=== PATIENT | female | born 1970 | race American Indian/Alaskan Native ===

== ENCOUNTER 2016-12-16 18:41 | Emergency (ER) | payer MEDICAID ==
[2016-12-16 20:29] VITALS: BP 171/93
[2016-12-16] MEDS ORDERED: Albuterol 0.083% 2.5 MG/3 ML Neb Soln NEB ONE (20:45)
--- NOTE | 2016-12-16 20:46 | EDM.PDOC ---
ED HISTORY OF PRESENT ILLNESS - General Chief Complaint: Respiratory Problem Stated Complaint: SICK 5 DAYS-COUGH, HEAD & BODY ACHES Time Seen by Provider: 12/16/16 20:45 Source: Reports: Patient, Family History Limitations: Reports: No limitations - History of Present Illness INITIAL COMMENTS - FREE TEXT/NARRATIVE: PT HAS BEEN SICK FOR THE LAST 2-3 DAys and hurts all over and is coughing markedly. Timing/Duration: Reports: Hour(s):, Getting worse Location, General: Reports: chest Associated Symptoms: Reports: cough, other ( body aches) - Related Data Allergies/ADRs: Allergies Allergy/AdvReac Type Severity Reaction Status Date / Time Penicillins AdvReac Diarrhea Verified 12/16/16 20:30 Home Meds: Home Meds Esomeprazole [NexIUM] 40 mg PO DAILY 05/23/15 [History] diphenhydrAMINE HCl [Banophen] 25 mg PO ASDIRECTED 08/02/16 [History] Citalopram [Celexa] 20 mg PO DAILY 12/16/16 [History] Past Medical History HEENT 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: Impaired vision Cardiovascular 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: Arrhythmia Other Cardiovascular History: first degree AV block Respiratory 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: Bronchitis, recurrent Gastrointestinal 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: Gastritis, GERD, PUD 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, Other OB/BYN History: labial cyst Musculoskeletal 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: Back pain, chronic, Fracture Other Musculoskeletal History: mid level DJD Psychiatric 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: Anxiety, Panic attack Hematologic 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: Anemia, Blood transfusion(s), Iron deficiency - Infectious Disease History Infectious Disease 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: Chicken pox - Past Surgical History GI Surgical 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: Cholecystectomy, Colonoscopy, EGD Female Surgical 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: Tubal ligation Other Musculoskeletal Surgeries/Procedures:: herniated disc Social & Family History - Tobacco Use Smoking Status *Q: Current Every Day Smoker Years of Tobacco use: 15 Packs/Tins Daily: 0.5 Used Tobacco, but Quit: No Second Hand Smoke Exposure: Yes - Caffeine Use Caffeine Use: Reports: Coffee, Soda - Alcohol Use Days Per Week of Alcohol Use: 0 - Recreational Drug Use Recreational Drug Use: No Drug Use in Last 12 Months: No - Living Situation & Occupation Living situation: Reports: single Occupation: unemployed (lives in [facility] with family.) ED ROS GENERAL - Review of Systems Review Of Systems: See Below Constitutional: Reports: malaise, weakness HEENT: Reports: No symptoms Respiratory: Reports: shortness of breath, wheezing, cough Cardiovascular: Reports: No symptoms Endocrine: Reports: no symptoms GI/Abdominal: Reports: No symptoms : Reports: no symptoms ED EXAM, GENERAL - Physical Exam Exam: See Below Free Text/Narrative:: pt is here coughing a great deal. She hurts in her back when she is coughing so hard She is not raising sputum. Exam Limited By: No limitations General Appearance: alert, anxious Ears: normal TMs Nose: nasal drainage Throat/Mouth: Normal inspection Head: atraumatic Neck: normal inspection Respiratory/Chest: decreased breath sounds, wheezing Cardiovascular: regular rate, rhythm GI/Abdominal: soft, non tender Rectal (Female) Exam: Deferred Back Exam: normal inspection Extremities: normal inspection Neurological: alert, oriented, normal cognition Psychiatric: anxious Course - Vital Signs Last Recorded V/S: Last Vital Signs Temp 37.0 C 12/16/16 20:25 Pulse 87 12/16/16 20:25 Resp 12 12/16/16 20:25 BP 171/93 H 12/16/16 20:25 Pulse Ox 98 12/16/16 20:25 - Orders/Labs/Meds Orders: Active Orders 24 hr Category Date Time Status RT Aerosol Therapy [RC] ASDIRECTED Care 12/16/16 20:45 Active Chest 2V [CR] Stat Exams 12/16/16 20:44 Taken Labs: Laboratory Tests 12/16/16 Range/Units 20:54 WBC 7.7 (4.5-11.0) K/uL RBC 5.13 (3.30-5.50) M/uL Hgb 14.5 (12.0-15.0) g/dL Hct 43.2 (36.0-48.0) % MCV 84 (80-98) fL MCH 28 (27-31) pg MCHC 34 (32-36) % Plt Count 252 (150-400) K/uL Neut % (Auto) 62 (36-66) % Lymph % (Auto) 16 L (24-44) % Beckham % (Auto) 9 H (2-6) % Eos % (Auto) 12 H (2-4) % Baso % (Auto) 1 (0-1) % Meds: Medications Discontinued Medications Generic Name Dose Route Start Last Admin Trade Name Freq PRN Reason Stop Dose Admin Albuterol 2.5 mg 12/16/16 20:45 12/16/16 21:37 Proventil Neb Soln NEB 12/16/16 20:46 2.5 mg ONETIME ONE Administration Benzonatate 200 mg 12/16/16 21:55 12/16/16 22:14 Tessalon Perles PO 12/16/16 21:56 200 mg ONETIME ONE Administration - Re-Assessments/Exams Free Text/Narrative Re-Assessment/Exam: 12/16/16 22:36 wbc is not elevated. Her Influ a and b are neg. She was given a neb and she was better with the coughing. Her chest xray did not reveal an infiltrate. Departure - Departure Time of Disposition: 22:37 Disposition: Home, Self-Care 01 Condition: fair Clinical Impression: Bronchitis, Bronchospasm Referrals: PCP,None [Primary Care Provider] - Forms: ED Department Discharge Care Plan Goals: cool mist humidifier, albuterol inhaler 2 puffs tid, prachi elamsin ac 1 - 2 tsp q6h prn for cough. - My Orders Last 24 Hours: My Active Orders 12/16/16 20:44 Chest 2V [CR] Stat 12/16/16 20:45 RT Aerosol Therapy [RC] ASDIRECTED - Assessment/Plan Last 24 Hours: My Active Orders 12/16/16 20:44 Chest 2V [CR] Stat 12/16/16 20:45 RT Aerosol Therapy [RC] ASDIRECTED
[2016-12-16] MEDS ORDERED: Benzonatate 100 MG Cap PO ONE (21:55)
--- NOTE | 2016-12-17 08:34 | CR ---
Chest 2V HISTORY: cough COMPARISON: 08/02/2016. FINDINGS: Cardiac size and pulmonary vessels normal. Lungs are clear.
== END 2016-12-16 22:57 | disposition home or self-care (01) ==
LOC: JP.ED 18:41
DX: J40 Bronchitis, not specified as acute or chronic (principal); J98.01 Acute bronchospasm; K21.9 Gastro-esophageal reflux disease without esophagitis; F41.0 Panic disorder [episodic paroxysmal anxiety]; F17.210 Nicotine dependence, cigarettes, uncomplicated; Z90.49 Acquired absence of other specified parts of digestive tract; Z98.51 Tubal ligation status; Z98.890 Other specified postprocedural states; Z79.899 Other long term (current) drug therapy; Z88.0 Allergy status to penicillin
CPT/HCPCS: 36415; 71020; 85025; 87804; 99284; A9270

== ENCOUNTER 2017-01-10 21:59 | Emergency (ER) | payer MEDICAID ==
[2017-01-10 22:23] VITALS: BP 144/95
[2017-01-10] MEDS ORDERED: ALPRAZolam 0.25 MG Tab PO ONE (22:48)
--- NOTE | 2017-01-10 22:53 | EDM.PDOC ---
ED HPI Behavioral Health - General Chief Complaint: Behavioral/Psych Stated Complaint: sob Time Seen by Provider: 01/10/17 22:49 Source: Reports: Patient Exam Limitations: Reports: No limitations - History of Present Illness INITIAL COMMENTS - FREE TEXT/NARRATIVE: 46 yo female presents with a complaint of anxiety. Is prescribed Celexa, but has not been taking it for the past few weeks. Arrives tonight via EMS without any tx en route. Is feeling slightly better on arrival. Onset of Symptoms: Reports: today Symptom Onset Date: 01/10/17 Duration of Symptoms: Reports: Hour(s):, Other (improving currently.) Severity: moderate Context, Behavioral Health: Reports: living situation, family dynamics Associated Symptoms: Reports: anxiety. 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: Reports: Other (see below) (none) - Related Data Allergies Allergy/AdvReac Type Severity Reaction Status Date / Time Penicillins AdvReac Diarrhea Verified 01/10/17 22:30 Home Medications: Home Meds Esomeprazole [NexIUM] 40 mg PO DAILY 05/23/15 [History] Citalopram [Celexa] 20 mg PO DAILY 12/16/16 [History] ALPRAZolam [Alprazolam] 0.25 mg PO TID PRN #8 tablet 01/10/17 [Rx] Doxycycline Hyclate [Doxycycline Hyclate] 100 mg PO DAILY 01/10/17 [History] left hip Pain Score (Numeric/FACES): 9 Past Medical History HEENT 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: Impaired vision Cardiovascular 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: Arrhythmia Other Cardiovascular History: first degree AV block Respiratory 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: Bronchitis, recurrent Gastrointestinal 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: Gastritis, GERD, PUD 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 ablation, Other OB/BYN History: labial cyst Musculoskeletal 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: Back pain, chronic, Fracture Other Musculoskeletal History: mid level DJD Psychiatric 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: Anxiety, Panic attack Hematologic 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: Anemia, Blood transfusion(s), Iron deficiency - Infectious Disease History Infectious Disease 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: Chicken pox - Past Surgical History GI Surgical 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: Cholecystectomy, Colonoscopy, EGD Female Surgical 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: Tubal ligation Other Musculoskeletal Surgeries/Procedures:: herniated disc Social & Family History - Tobacco Use Smoking Status *Q: Current Every Day Smoker Years of Tobacco use: 10 Packs/Tins Daily: 0.5 Used Tobacco, but Quit: No Second Hand Smoke Exposure: Yes - Caffeine Use Caffeine Use: Reports: Coffee, Soda - Alcohol Use Days Per Week of Alcohol Use: 0 - Recreational Drug Use Recreational Drug Use: No Drug Use in Last 12 Months: No - Living Situation & Occupation Living situation: Reports: single Occupation: unemployed (lives in [facility] with family.) ED ROS GENERAL - Review of Systems Review Of Systems: See Below Constitutional: Reports: no symptoms HEENT: Reports: No symptoms Respiratory: Reports: Cough Cardiovascular: Reports: No symptoms Endocrine: Reports: no symptoms GI/Abdominal: Reports: No symptoms : Reports: no symptoms Musculoskeletal: Reports: no symptoms Skin: Reports: no symptoms Neurological: Reports: No Symptoms Psychiatric: Reports: Anxiety ED EXAM, BEHAVIORAL HEALTH - Physical Exam Exam: See Below Exam Limited By: No limitations General Appearance: alert, WD/WN, no apparent distress Eye Exam: bilateral eye: normal inspection Ears: normal external exam, normal canal, hearing grossly normal Nose: normal inspection, normal mucosa, no blood Throat/Mouth: Normal inspection, Normal lips, Normal oropharynx, Normal voice, No airway compromise Head: atraumatic, normocephalic Neck: normal inspection, supple, non-tender Respiratory/Chest: no respiratory distress, lungs clear, normal breath sounds, no accessory muscle use Cardiovascular: regular rate, rhythm, no edema GI/Abdominal: normal bowel sounds, soft, non tender, no distention Back Exam: normal inspection, full range of motion Extremities: normal inspection, normal range of motion, non-tender, no pedal edema Neurological: alert, normal mood/affect, CN II-XII intact, normal cognition, no motor/sensory deficits, oriented x 3 Psychiatric: alert, normal affect, normal cognition, normal mood, oriented Skin Exam: Warm, Dry, Intact, Normal color, No rash COURSE, BEHAVIORAL HEALTH COMP - Course Vital Signs: Last Vital Signs Temp 36.7 C 01/10/17 22:21 Pulse 101 H 01/10/17 22:21 Resp 16 01/10/17 22:21 BP 144/95 H 01/10/17 22:21 Pulse Ox 98 01/10/17 22:21 Alprazolam 0.25 mg po Orders, Labs, Meds: Medications Discontinued Medications Generic Name Dose Route Start Last Admin Trade Name Freq PRN Reason Stop Dose Admin Alprazolam 0.25 mg 01/10/17 22:48 01/10/17 22:54 Xanax PO 01/10/17 22:49 0.25 mg NOW ONE Administration Departure - Departure Time of Disposition: 23:15 Disposition: Home, Self-Care 01 Condition: good Clinical Impression: Anxiety Prescriptions: ALPRAZolam [Alprazolam] 0.25 mg PO TID PRN #8 tablet PRN Reason: Anxiety Referrals: PCP,None [Primary Care Provider] - Forms: ED Department Discharge Additional Instructions: Resume your celexa when you get home. No smoking. F/U with your provider if worse or not improving. Take alprazolam as needed for break through anxiety.
== END 2017-01-10 23:26 | disposition home or self-care (01) ==
LOC: JP.ED 21:59
DX: F41.9 Anxiety disorder, unspecified (principal); K21.9 Gastro-esophageal reflux disease without esophagitis; F17.210 Nicotine dependence, cigarettes, uncomplicated; Z90.49 Acquired absence of other specified parts of digestive tract; Z98.51 Tubal ligation status; Z98.890 Other specified postprocedural states; Z79.899 Other long term (current) drug therapy; Z88.0 Allergy status to penicillin
CPT/HCPCS: 99285; A9270

== ENCOUNTER 2017-03-29 16:59 | Emergency (ER) | payer MEDICAID ==
[2017-03-29 17:25] VITALS: BP 145/98
--- NOTE | 2017-03-29 17:40 | EDM.PDOC ---
ED HPI GENERAL MEDICAL PROBLEM - General Chief Complaint: Respiratory Problem Stated Complaint: COUGH Time Seen by Provider: 03/29/17 17:36 Source of Information: Reports: Patient History Limitations: Reports: No Limitations - History of Present Illness INITIAL COMMENTS - FREE TEXT/NARRATIVE: With chest tightness for the last week. Is using inhaler as needed. Does smoke. Lives in an older home with dust also. Feels like the heat is a trigger. Symptoms worse over the last 3 days. Onset: Gradual Severity: Moderate Improves with: Reports: Medication Worsens with: Reports: Breathing Associated Symptoms: Reports: Cough, Shortness of Breath - Related Data Allergies Allergy/AdvReac Type Severity Reaction Status Date / Time alprazolam [From Xanax] AdvReac Anxiety Verified 03/29/17 17:27 Penicillins AdvReac Diarrhea Verified 03/29/17 17:26 Home Meds: Home Meds Esomeprazole [NexIUM] 40 mg PO DAILY 05/23/15 [History] Citalopram [Celexa] 20 mg PO DAILY 12/16/16 [History] hydrOXYzine Pamoate [Hydroxyzine Pamoate] 25 mg PO QID 03/29/17 [History] Past Medical History HEENT 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: Impaired Vision Cardiovascular 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: Arrhythmia Other Cardiovascular History: first degree AV block Respiratory 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: Bronchitis, Recurrent Gastrointestinal 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: Gastritis, GERD, PUD 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, Other OB/BYN History: labial cyst Musculoskeletal 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: Back Pain, Chronic, Fracture Other Musculoskeletal History: mid level DJD Psychiatric 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: Anxiety, Panic Attack Hematologic 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: Anemia, Blood Transfusion(s), Iron Deficiency - Infectious Disease History Infectious Disease 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: Chicken Pox - Past Surgical History GI Surgical 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: Cholecystectomy, Colonoscopy, EGD Female Surgical 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: Tubal Ligation Social & Family History - Tobacco Use Smoking Status *Q: Current Every Day Smoker Years of Tobacco use: 10 Packs/Tins Daily: 0.5 Used Tobacco, but Quit: No Second Hand Smoke Exposure: Yes - Caffeine Use Caffeine Use: Reports: Coffee, Soda - Alcohol Use Days Per Week of Alcohol Use: 0 - Recreational Drug Use Recreational Drug Use: No Drug Use in Last 12 Months: No - Living Situation & Occupation Living situation: Reports: Single Occupation: Unemployed ED ROS GENERAL - Review of Systems Review Of Systems: See Below Constitutional: Reports: Fatigue HEENT: Reports: Throat Pain Respiratory: Reports: Shortness of Breath, Cough Cardiovascular: Reports: No Symptoms Musculoskeletal: Reports: No Symptoms ED EXAM, GENERAL - Physical Exam Exam: See Below Exam Limited By: No Limitations General Appearance: Alert, WD/WN, No Apparent Distress Ears: Normal External Exam, Normal Canal, Hearing Grossly Normal, Normal TMs Throat/Mouth: Normal Inspection, Normal Lips, Normal Teeth, Normal Gums, Normal Oropharynx, Normal Voice, No Airway Compromise Head: Atraumatic, Normocephalic Neck: Normal Inspection, Supple, Non-Tender, Full Range of Motion Respiratory/Chest: Rhonchi (throughout with expiratory wheezing noted) Cardiovascular: Normal Peripheral Pulses, Regular Rate, Rhythm, No Edema, No Gallop, No JVD, No Murmur, No Rub Course - Vital Signs Last Recorded V/S: Last Vital Signs Temp 98.6 F 03/29/17 17:24 Pulse 79 03/29/17 17:24 Resp 16 03/29/17 17:24 BP 145/98 H 03/29/17 17:24 Pulse Ox 97 03/29/17 17:24 - Orders/Labs/Meds Orders: Active Orders 24 hr Category Date Time Status CXR [Chest 2V] [CR] Stat Exams 03/29/17 17:40 Taken Labs: Laboratory Tests 03/29/17 Range/Units 17:40 WBC 8.5 (4.5-11.0) K/uL RBC 4.95 (3.30-5.50) M/uL Hgb 14.1 (12.0-15.0) g/dL Hct 42.0 (36.0-48.0) % MCV 85 (80-98) fL MCH 29 (27-31) pg MCHC 34 (32-36) % Plt Count 245 (150-400) K/uL Neut % (Auto) 53 (36-66) % Lymph % (Auto) 25 (24-44) % Gibson % (Auto) 9 H (2-6) % Eos % (Auto) 11 H (2-4) % Baso % (Auto) 2 H (0-1) % Departure - Departure Time of Disposition: 18:06 Disposition: Home, Self-Care 01 Condition: good Clinical Impression: Right middle lobe pneumonia Qualifiers: Pneumonia type: due to unspecified organism Qualified Code(s): J18.1 - Lobar pneumonia, unspecified organism - Discharge Information Instructions: Community-Acquired Pneumonia, Adult, [id number] Forms: ED Department Discharge Additional Instructions: CBC WNL. Chest xray shows right middle lobe consolidation. Rx for Zpak as directed x 5 days given. Continue Albuterol inhaler 2 puffs as needed for shortness of breath. Followup with primary care in 2 weeks. Encouraged smoking cessation. - Problem List & Annotations (1) Right middle lobe pneumonia SNOMED Code(s): 910076435 Code(s): J18.1 - LOBAR PNEUMONIA, UNSPECIFIED ORGANISM Status: Acute Priority: Medium Current Visit: Yes Qualifiers: Pneumonia type: due to unspecified organism Qualified Code(s): J18.1 - Lobar pneumonia, unspecified organism - My Orders Last 24 Hours: My Active Orders 03/29/17 17:40 CXR [Chest 2V] [CR] Stat - Assessment/Plan Last 24 Hours: My Active Orders 03/29/17 17:40 CXR [Chest 2V] [CR] Stat
--- NOTE | 2017-03-31 10:55 | CR ---
Chest 2V INDICATION: cough, smoker FINDINGS: Comparison 12/16/2016. No change. Negative chest.
== END 2017-03-29 18:25 | disposition home or self-care (01) ==
LOC: JP.ED 16:59
DX: J18.9 Pneumonia, unspecified organism (principal); K21.9 Gastro-esophageal reflux disease without esophagitis; F41.0 Panic disorder [episodic paroxysmal anxiety]; F17.210 Nicotine dependence, cigarettes, uncomplicated; Z90.49 Acquired absence of other specified parts of digestive tract; Z98.51 Tubal ligation status; Z79.899 Other long term (current) drug therapy; Z88.0 Allergy status to penicillin; Z86.2 Personal history of diseases of the blood and blood-forming organs and certain disorders involving the immune mechanism; Z88.8 Allergy status to other drugs, medicaments and biological substances
CPT/HCPCS: 36415; 71020; 71020-26; 85025; 99284

== ENCOUNTER 2017-04-29 20:41 | Emergency (ER) | payer MEDICAID | END 2017-04-29 22:50 | disposition left against medical advice (07) | LOC: JP.ED 20:41 | DX: M54.5 Low back pain (principal); Z53.21 Procedure and treatment not carried out due to patient leaving prior to being seen by health care provider ==

== ENCOUNTER 2017-07-21 01:54 | Emergency (ER) | payer MEDICAID ==
[2017-07-21 02:12] VITALS: BP 156/102
[2017-07-21] MEDS ORDERED: Ketorolac 60 MG/2 ML SDV IM ONE (02:24)
--- NOTE | 2017-07-21 02:31 | EDM.PDOC ---
ED HPI GENERAL MEDICAL PROBLEM - General Chief Complaint: Back Pain or Injury Stated Complaint: LOWER BACK PAIN Time Seen by Provider: 07/21/17 02:00 Source of Information: Reports: Patient History Limitations: Reports: No Limitations - History of Present Illness INITIAL COMMENTS - FREE TEXT/NARRATIVE: 46-year-old female with chronic low back pain, recently received nerve ablation therapy at [facility] as well as local injections. She did get some relief from that and was doing better but 2 mornings ago she woke up with low back pain especially on the left side and it's been very persistent. No radiculopathy. No urinary or bowel changes. No specific trauma. I have seen her for this in the past and she seems to respond well to Toradol. We discussed the importance of activity, exercise and following the instructions of physical therapy and chronic pain management. She doesn't have a regular physician. Onset: Unknown/Unsure (Woke up with pain 2 mornings ago) Duration: Day(s): (Has had pain for 2 days) Location: Reports: Back (Low back especially left) Quality: Reports: Ache, Burning Severity: Moderate Worsens with: Reports: Other (Painful to walk), Movement Associated Symptoms: Reports: No Other Symptoms Lower Back Pain Score (Numeric/FACES): 7 - Related Data Allergies Allergy/AdvReac Type Severity Reaction Status Date / Time alprazolam [From Xanax] AdvReac Anxiety Verified 07/21/17 02:04 Penicillins AdvReac Diarrhea Verified 07/21/17 02:04 Home Meds: Home Meds Esomeprazole [NexIUM] 40 mg PO DAILY 05/23/15 [History] Citalopram [Celexa] 20 mg PO DAILY 12/16/16 [History] Loratadine [Claritin] 10 mg PO DAILY 07/21/17 [History] Past Medical History HEENT 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: Impaired Vision Cardiovascular 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: Arrhythmia Other Cardiovascular History: first degree AV block Respiratory 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: Bronchitis, Recurrent Gastrointestinal 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: Gastritis, GERD, PUD 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: Endometrial Ablation, Other OB/BYN History: labial cyst Musculoskeletal 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: Back Pain, Chronic, Fracture Other Musculoskeletal History: mid level DJD Psychiatric 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: Anxiety, Panic Attack Hematologic 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: Anemia, Blood Transfusion(s), Iron Deficiency - Infectious Disease History Infectious Disease 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: Chicken Pox - Past Surgical History GI Surgical 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: Cholecystectomy, Colonoscopy, EGD Female Surgical 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: Tubal Ligation Social & Family History - Tobacco Use Smoking Status *Q: Current Every Day Smoker Years of Tobacco use: 20 Packs/Tins Daily: 0.5 Used Tobacco, but Quit: No Second Hand Smoke Exposure: Yes - Caffeine Use Caffeine Use: Reports: Coffee, Soda - Alcohol Use Days Per Week of Alcohol Use: 0 - Recreational Drug Use Recreational Drug Use: No Drug Use in Last 12 Months: No - Living Situation & Occupation Living situation: Reports: Single Occupation: Unemployed ED ROS GENERAL - Review of Systems Review Of Systems: See Below Constitutional: Denies: Fever, Chills Respiratory: Denies: Shortness of Breath Cardiovascular: Denies: Chest Pain GI/Abdominal: Denies: Abdominal Pain : Reports: No Symptoms Neurological: Reports: No Symptoms ED EXAM,LOWER BACK PAIN/INJURY - Physical Exam Exam: See Below Exam Limited By: No Limitations General Appearance: Alert, Mild Distress (Looks uncomfortable, I watch the patient walk in and she had little difficulty. Seems most comfortable lying on her right side) Eye Exam: Bilateral Eye: EOMI Respiratory/Chest: No Respiratory Distress, Lungs Clear Cardiovascular: Regular Rate, Rhythm Back Exam: Paraspinal Tenderness (Patient has paraspinal tenderness to palpation just above the sacroiliac area bilaterally and around the lumbar spine , but worse on the left. She is able to raise her legs against gravity without difficulty and has no radiculopathy) Neurological: Alert, No Motor/Sensory Deficits Course - Vital Signs Last Recorded V/S: Last Vital Signs Temp 97.9 F 07/21/17 02:11 Pulse 96 07/21/17 02:11 Resp 16 07/21/17 02:11 BP 156/102 H 07/21/17 02:11 Pulse Ox 96 07/21/17 02:11 - Orders/Labs/Meds Meds: Medications Discontinued Medications Generic Name Dose Route Start Last Admin Trade Name Freq PRN Reason Stop Dose Admin Ketorolac Tromethamine 60 mg 07/21/17 02:24 07/21/17 02:32 Toradol IM 07/21/17 02:25 60 mg ONETIME ONE Administration - Re-Assessments/Exams Free Text/Narrative Re-Assessment/Exam: 07/21/17 02:28 She was given 60 mg of Toradol IM, and 20 additional 10 mg doses to take every 6 -8 hours up to 5 days. Also gave her 15 Flexeril to take for muscle relaxation to help sleep. Strongly encouraged her to reestablish a primary provider so she can get followed more closely for this problem. Departure - Departure Time of Disposition: 14:50 Disposition: Home, Self-Care 01 Condition: Good Clinical Impression: Acute exacerbation of chronic low back pain - Discharge Information Instructions: Back Pain, Adult, [id number] Referrals: PCP,None [Primary Care Provider] - Forms: ED Department Discharge Care Plan Goals: Take one ketorolac every 6-8 hours until pain is improved, you do not need to take all the medication and do not take for more than 5 days. If not significantly improved in 3-5 days consider rechecking at the clinic. Flexeril 3 times a day as needed, this is safe to take with the ketorolac. Stay active and increase activity as tolerated.
== END 2017-07-21 02:50 | disposition home or self-care (01) ==
LOC: JP.ED 01:54
DX: G89.29 Other chronic pain (principal); M54.5 Low back pain; K21.9 Gastro-esophageal reflux disease without esophagitis; F41.9 Anxiety disorder, unspecified; F17.210 Nicotine dependence, cigarettes, uncomplicated; Z98.51 Tubal ligation status; Z79.899 Other long term (current) drug therapy; Z88.0 Allergy status to penicillin; Z90.49 Acquired absence of other specified parts of digestive tract; Z88.8 Allergy status to other drugs, medicaments and biological substances
CPT/HCPCS: 96372; 99283; J1885

== ENCOUNTER 2017-08-24 10:11 | Emergency (ER) | payer MEDICAID ==
[2017-08-24 10:40] VITALS: BP 154/98
[2017-08-24] MEDS ORDERED: Albuterol/Ipratropium 3.0-0.5 MG/3 ML Neb Soln NEB ONE (10:50)
--- NOTE | 2017-08-24 10:56 | EDM.PDOC ---
ED HPI GENERAL MEDICAL PROBLEM - General Chief Complaint: Asthma Stated Complaint: ILLNESS Time Seen by Provider: 08/24/17 10:40 Source of Information: Reports: Patient, Old Records History Limitations: Reports: Other (incomplete records, also goes at times to [place] for her care.) - History of Present Illness INITIAL COMMENTS - FREE TEXT/NARRATIVE: 46 yo female presents with cough, wheezing, and SOB. Was seen a couple weeks ago in [place] in the ER and was given azithromycin and cough medicine for "bronchitis" which did not help. Was a 1/2 ppd smoker until a week ago. Has an albuterol inhaler that is not helping her. Cough non-productive, no rhinorrhea, and no fever. Onset: Other (Over 2 weeks duration, waxing and waning.) Duration: Week(s):, Waxing/Waning Location: Reports: Chest Quality: Reports: Other (tightness.) Severity: Moderate Improves with: Reports: Rest Worsens with: Reports: Movement (activity) Context: Reports: Other (Hx of asthma and tobacco abuse) Associated Symptoms: Reports: Cough, Shortness of Breath. 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: Reports: Other (see below) (azthromycin/albuterol) - Related Data Allergies Allergy/AdvReac Type Severity Reaction Status Date / Time alprazolam [From Xanax] AdvReac Anxiety Verified 07/21/17 02:04 Penicillins AdvReac Diarrhea Verified 07/21/17 02:04 Home Meds: Home Meds Esomeprazole [NexIUM] 40 mg PO DAILY 05/23/15 [History] Citalopram [Celexa] 20 mg PO DAILY 12/16/16 [History] Loratadine [Claritin] 10 mg PO DAILY 07/21/17 [History] Albuterol Sulfate [Proair Hfa] 2 puff IH Q4H PRN #1 hfa.aer.ad 08/24/17 [Rx] Prednisone [IJD: Prednisone] 10 mg PO ASDIRECTED #21 tab 08/24/17 [Rx] Past Medical History HEENT 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: Impaired Vision Cardiovascular 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: Arrhythmia Other Cardiovascular History: first degree AV block Respiratory 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: Bronchitis, Recurrent Gastrointestinal 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: Gastritis, GERD, PUD DIRECTOR OF PLACEMENT 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: Endometrial Ablation, Other OB/BYN History: labial cyst Musculoskeletal 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: Back Pain, Chronic, Fracture Other Musculoskeletal History: mid level DJD Psychiatric 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: Anxiety, Panic Attack Hematologic 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: Anemia, Blood Transfusion(s), Iron Deficiency - Infectious Disease History Infectious Disease 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: Chicken Pox - Past Surgical History GI Surgical 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: Cholecystectomy, Colonoscopy, EGD Female Surgical 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: Tubal Ligation Social & Family History - Tobacco Use Smoking Status *Q: Current Every Day Smoker Years of Tobacco use: 20 Packs/Tins Daily: 0.5 Used Tobacco, but Quit: No Second Hand Smoke Exposure: Yes - Caffeine Use Caffeine Use: Reports: Coffee, Soda - Alcohol Use Days Per Week of Alcohol Use: 0 - Recreational Drug Use Recreational Drug Use: No Drug Use in Last 12 Months: No - Living Situation & Occupation Living situation: Reports: Single Occupation: Unemployed ED ROS GENERAL - Review of Systems Review Of Systems: See Below Constitutional: Reports: No Symptoms HEENT: Reports: No Symptoms Respiratory: Reports: Shortness of Breath, Wheezing, Cough. Denies: Sputum, Hemoptysis Cardiovascular: Reports: No Symptoms GI/Abdominal: Reports: No Symptoms : Reports: No Symptoms Musculoskeletal: Reports: No Symptoms Skin: Reports: No Symptoms Neurological: Reports: No Symptoms Psychiatric: Reports: No Symptoms ED EXAM, GENERAL - Physical Exam Exam: See Below Exam Limited By: No Limitations General Appearance: Alert, WD/WN, No Apparent Distress Eye Exam: Bilateral Eye: Normal Inspection Ears: Normal External Exam, Normal Canal, Hearing Grossly Normal, Normal TMs Ear Exam: Bilateral Ear: Auricle Normal, Canal Normal, TM normal Nose: Normal Inspection, Normal Mucosa Throat/Mouth: Normal Inspection, Normal Lips, Normal Oropharynx, Normal Voice, No Airway Compromise Head: Atraumatic, Normocephalic Neck: Normal Inspection, Supple, Non-Tender Respiratory/Chest: No Respiratory Distress, No Accessory Muscle Use, Decreased Breath Sounds, Wheezing. No: Crackles, Rales, Rhonchi, Retractions Cardiovascular: Regular Rate, Rhythm, No Edema Extremities: Normal Inspection, Normal Range of Motion, Non-Tender, No Pedal Edema Neurological: Alert, Oriented, CN II-XII Intact, Normal Cognition, No Motor/ Sensory Deficits Psychiatric: Normal Affect, Normal Mood Skin Exam: Warm, Dry, Intact, Normal Color, No Rash Lymphatic: No Adenopathy Course - Vital Signs Text/Narrative:: Improved aeration after Duoneb Last Recorded V/S: Last Vital Signs Temp 36.2 C 08/24/17 10:38 Pulse 86 08/24/17 10:38 Resp 16 08/24/17 10:38 BP 154/98 H 08/24/17 10:38 Pulse Ox 92 L 08/24/17 10:38 - Orders/Labs/Meds Orders: Active Orders 24 hr Category Date Time Status RT Aerosol Therapy [RC] ASDIRECTED Care 08/24/17 10:50 Active Meds: Medications Discontinued Medications Generic Name Dose Route Start Last Admin Trade Name Freq PRN Reason Stop Dose Admin Albuterol/Ipratropium 3 ml 08/24/17 10:50 08/24/17 11:11 Duoneb 3.0-0.5 Mg/3 Ml NEB 08/24/17 10:51 3 ml ONETIME ONE Administration Prednisone 40 mg 08/24/17 11:25 Prednisone PO 08/24/17 11:26 ONETIME ONE Departure - Departure Time of Disposition: 11:32 Disposition: Home, Self-Care 01 Condition: Fair Clinical Impression: Asthma with status asthmaticus Qualifiers: Asthma severity: moderate Asthma persistence: persistent Qualified Code(s): J45.42 - Moderate persistent asthma with status asthmaticus - Discharge Information Prescriptions: Albuterol Sulfate [Proair Hfa] 2 puff IH Q4H PRN #1 hfa.aer.ad PRN Reason: Wheezing Prednisone [IJD: Prednisone] 10 mg PO ASDIRECTED #21 tab Instructions: Asthma, Adult, [id number] Referrals: PCP,None [Primary Care Provider] - Forms: ED Department Discharge Additional Instructions: No smoking. Take albuterol as directed for wheezing. Take prednisone as directed until gone. F/U with a doctor of your choice later this week for recheck. Return if worse. - My Orders Last 24 Hours: My Active Orders 08/24/17 10:50 RT Aerosol Therapy [RC] ASDIRECTED - Assessment/Plan Last 24 Hours: My Active Orders 08/24/17 10:50 RT Aerosol Therapy [RC] ASDIRECTED
[2017-08-24] MEDS ORDERED: predniSONE 20 MG Tab PO ONE (11:25)
== END 2017-08-24 11:40 | disposition home or self-care (01) ==
LOC: JP.ED 10:11
DX: J45.42 Moderate persistent asthma with status asthmaticus (principal); K21.9 Gastro-esophageal reflux disease without esophagitis; F41.0 Panic disorder [episodic paroxysmal anxiety]; F17.210 Nicotine dependence, cigarettes, uncomplicated; Z86.2 Personal history of diseases of the blood and blood-forming organs and certain disorders involving the immune mechanism; Z79.899 Other long term (current) drug therapy; Z88.0 Allergy status to penicillin; Z88.8 Allergy status to other drugs, medicaments and biological substances
CPT/HCPCS: 94640; 99283; 99284; A9270; J7620

== ENCOUNTER 2017-08-24 22:52 | Emergency (ER) | payer MEDICAID ==
[2017-08-24 22:59] VITALS: BP 148/86
[2017-08-24] MEDS ORDERED: hydrOXYzine HCl 100 MG/2 ML SDV IM ONE (23:44)
[2017-08-24] MEDS ORDERED: Ketorolac 60 MG/2 ML SDV IM ONE (23:45)
--- NOTE | 2017-08-24 23:51 | EDM.PDOC ---
ED HPI GENERAL MEDICAL PROBLEM - General Chief Complaint: Respiratory Problem Stated Complaint: MEDICAL [facility] Time Seen by Provider: 08/24/17 23:28 Source of Information: Reports: Patient History Limitations: Reports: No Limitations - History of Present Illness INITIAL COMMENTS - FREE TEXT/NARRATIVE: Malissa presents tonight via EMS with complaints of worsening cough and shortness of breath since emergency room discharge around 2pm today. She reports she cannot stop coughing, has a headache, her ribs hurt and she cannot rest. She denies vomiting, change in mental status, coughing up blood or mucus. general body pain Pain Score (Numeric/FACES): 8 - Related Data Allergies Allergy/AdvReac Type Severity Reaction Status Date / Time hydromorphone [From Dilaudid] Allergy Vomiting Verified 08/24/17 22:56 alprazolam [From Xanax] AdvReac Anxiety Verified 08/24/17 22:56 Penicillins AdvReac Diarrhea Verified 08/24/17 22:56 Home Meds: Home Meds Esomeprazole [NexIUM] 40 mg PO DAILY 05/23/15 [History] Citalopram [Celexa] 20 mg PO DAILY 12/16/16 [History] Loratadine [Claritin] 10 mg PO DAILY 07/21/17 [History] Albuterol Sulfate [Proair Hfa] 2 puff IH Q4H PRN #1 hfa.aer.ad 08/24/17 [Rx] Prednisone [IJD: Prednisone] 10 mg PO ASDIRECTED #21 tab 08/24/17 [Rx] Past Medical History HEENT 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: Impaired Vision Cardiovascular 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: Arrhythmia Other Cardiovascular History: first degree AV block Respiratory 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: Bronchitis, Recurrent Gastrointestinal 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: Gastritis, GERD, PUD PACKER 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: Endometrial Ablation, Other OB/BYN History: labial cyst Musculoskeletal 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: Back Pain, Chronic, Fracture Other Musculoskeletal History: mid level DJD Psychiatric 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: Anxiety, Panic Attack Hematologic 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: Anemia, Blood Transfusion(s), Iron Deficiency - Infectious Disease History Infectious Disease 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: Chicken Pox - Past Surgical History GI Surgical 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: Cholecystectomy, Colonoscopy, EGD Female Surgical 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: Tubal Ligation Social & Family History - Tobacco Use Smoking Status *Q: Former Smoker Years of Tobacco use: 20 Packs/Tins Daily: 0.5 Used Tobacco, but Quit: Yes Month Tobacco Last Used: August Second Hand Smoke Exposure: Yes - Caffeine Use Caffeine Use: Reports: Coffee, Soda - Alcohol Use Days Per Week of Alcohol Use: 0 - Recreational Drug Use Recreational Drug Use: No Drug Use in Last 12 Months: No - Living Situation & Occupation Living situation: Reports: Single Occupation: Unemployed ED ROS GENERAL - Review of Systems Review Of Systems: See Below Constitutional: Reports: Malaise. Denies: Fever, Chills HEENT: Reports: Sinus Problem, Other (congestion of nasal sinus. ). Denies: Ear Discharge, Ear Pain, Throat Pain, Throat Swelling Respiratory: Reports: Shortness of Breath, Wheezing, Cough, Other (pain to ribs , abdomen with coughing). Denies: Hemoptysis Cardiovascular: Denies: Chest Pain, Blood Pressure Problem, Dyspnea on Exertion , Edema, Lightheadedness, Palpitations, PND, Syncope Endocrine: Reports: No Symptoms GI/Abdominal: Reports: Nausea. Denies: Abdominal Pain, Black Stool, Bloody Stool, Constipation, Diarrhea, Decreased Appetite, Difficulty Swallowing, Vomiting : Reports: No Symptoms Musculoskeletal: Reports: Muscle Pain, Other (pain to ribs with coughing) Skin: Denies: Bruising, Pruritis, Rash, Erythema, Wound Neurological: Reports: No Symptoms Psychiatric: Reports: No Symptoms Hematologic/Lymphatic: Reports: No Symptoms Immunologic: Reports: No Symptoms ED EXAM, GENERAL - Physical Exam Exam: See Below Free Text/Narrative:: Malissa is an alert 46 year old presenting via EMS for complaints of worsening cough and SOB since ER discharge today around 2pm. She states she cannot stop coughing, cannot rest and has pain to ribs and general muscle aches. She reports taking prednisone as directed. Exam Limited By: No Limitations General Appearance: Alert, WD/WN, Mild Distress Eye Exam: Bilateral Eye: EOMI, Normal Inspection, PERRL Ears: Normal External Exam, Normal Canal, Hearing Grossly Normal, Normal TMs Ear Exam: Bilateral Ear: Auricle Normal, Canal Normal, TM normal Nose: Normal Inspection, Normal Mucosa, No Blood, Clear Rhinorrhea. No: Nasal Tenderness Throat/Mouth: Normal Inspection, Normal Lips, Normal Oropharynx, Normal Voice, No Airway Compromise Head: Atraumatic, Normocephalic Neck: Normal Inspection, Supple, Non-Tender, Full Range of Motion. No: Lymphadenopathy (R), Lymphadenopathy (L) Respiratory/Chest: No Respiratory Distress, No Accessory Muscle Use, Chest Non- Tender, Other (Expiratory wheezing noted. ) Cardiovascular: Normal Peripheral Pulses, Regular Rate, Rhythm, No Edema, No Gallop, No Murmur Peripheral Pulses: 2+: Radial (L), Radial (R), Dorsalis Pedis (L), Dorsalis Pedis (R) GI/Abdominal: Normal Bowel Sounds, Soft, Non-Tender, No Organomegaly, No Distention, No Mass Back Exam: Normal Inspection, Full Range of Motion. No: CVA Tenderness (R), CVA Tenderness (L) Extremities: Normal Inspection, Normal Range of Motion, Non-Tender, No Pedal Edema, Normal Capillary Refill Neurological: Alert, Oriented, CN II-XII Intact, Normal Cognition, No Motor/ Sensory Deficits Psychiatric: Normal Affect, Normal Mood Skin Exam: Warm, Dry, Intact, Normal Color, No Rash Lymphatic: No Adenopathy Course - Vital Signs Last Recorded V/S: Last Vital Signs Temp 36.8 C 08/24/17 22:58 Pulse 109 H 08/24/17 22:58 Resp 20 08/24/17 22:58 BP 148/86 H 08/24/17 22:58 Pulse Ox 95 08/24/17 22:58 - Orders/Labs/Meds Orders: Active Orders 24 hr Category Date Time Status Chest 2V [CR] Stat Exams 08/24/17 23:45 Taken Labs: Laboratory Tests 08/24/17 08/24/17 Range/Units 23:54 23:54 WBC 16.6 H (4.5-11.0) K/uL RBC 4.48 (3.30-5.50) M/uL Hgb 12.6 (12.0-15.0) g/dL Hct 38.2 (36.0-48.0) % MCV 85 (80-98) fL MCH 28 (27-31) pg MCHC 33 (32-36) % Plt Count 331 (150-400) K/uL Sodium 138 L (140-148) mmol/L Potassium 3.6 (3.6-5.2) mmol/L Chloride 103 (100-108) mmol/L Carbon Dioxide 23 (21-32) mmol/L Anion Gap 15.6 H (5.0-14.0) mmol/L BUN 17 (7-18) mg/dL Creatinine 0.8 (0.6-1.0) mg/dL Est Cr Clr Drug Dosing 85.45 mL/min Estimated GFR (MDRD) > 60 (>60) Glucose 200 H (74-106) mg/dL Calcium 8.4 L (8.5-10.1) mg/dL Lab work reviewed with patient, all her questions answered. Meds: Medications Discontinued Medications Generic Name Dose Route Start Last Admin Trade Name Jayna PRN Reason Stop Dose Admin Hydroxyzine HCl 100 mg 08/24/17 23:44 08/25/17 00:05 Vistaril IM 08/24/17 23:45 100 mg ONETIME ONE Administration Ketorolac Tromethamine 60 mg 08/24/17 23:45 08/25/17 00:03 Toradol IM 08/24/17 23:46 60 mg ONETIME ONE Administration Levofloxacin 750 mg 08/25/17 00:16 Levaquin PO 08/25/17 00:17 ONETIME ONE - Radiology Interpretation Free Text/Narrative:: Chest x-ray wet read, slight infiltrate to left upper lobe no other acute findings. - Re-Assessments/Exams Free Text/Narrative Re-Assessment/Exam: 08/24/17 23:52 We will complete chest x-ray, CBC, BMP and administer vistaril, toradol to help with comfort. 08/25/17 00:16 WBC count elevated, one dose of prednisone today. She will be started on levaquin 750mg PO daily for 7 days for pneumonia due to recent use of azithromycin. First dose will be given in the ER. 08/25/17 00:40 Patient in agreement with plan. Departure - Departure Time of Disposition: 00:40 Disposition: Home, Self-Care 01 Condition: Fair Clinical Impression: Pneumonia, Cough, Exacerbation of asthma - Discharge Information Referrals: PCP,None [Primary Care Provider] - Forms: ED Department Discharge Additional Instructions: You were evaluated and treated tonight for cough, asthma exacerabation and pnemonia. Take levaquin 750 mg by mouth once daily for 7 days. The first dose was given to you in the ER. You can use hydroxyzine 25 to 50 mg by mouth as needed for anxiety. Use of cough medicine with codeine for cough. Continue use of prednisone and inhalers as previously directed. Follow up with your primary provider in 3 to 7 days for recheck of status. Return for worsening, issues or concerns. - My Orders Last 24 Hours: My Active Orders 08/24/17 23:45 Chest 2V [CR] Stat - Assessment/Plan Last 24 Hours: My Active Orders 08/24/17 23:45 Chest 2V [CR] Stat Assessment:: Pneumonia, Cough, Exacerbation of asthma Plan: Patient evaluated and treated tonight for cough, asthma exacerabation and pnemonia. Take levaquin 750 mg by mouth once daily for 7 days. The first dose was given in the ER. She can use hydroxyzine 25 to 50 mg by mouth as needed for anxiety. Use of cough medicine with codeine for cough. Continue use of prednisone and inhalers as previously directed. Follow up with primary provider in 3 to 7 days for recheck of status. Return for worsening, issues or concerns.
[2017-08-25] MEDS ORDERED: Levofloxacin 250 MG Tab PO ONE (00:16)
[2017-08-25] MEDS ORDERED: Levofloxacin 500 MG Tab ONE (00:56)
--- NOTE | 2017-08-25 08:51 | CR ---
Chest 2V INDICATION: SOB, cough FINDINGS: Comparison 03/29/2017. New faint infiltrates in the right upper lobe and lingula, consistent with pneumonia. Normal heart size. Chest otherwise negative. Follow-up chest x-ray in 4-6 weeks recommended.
== END 2017-08-25 01:15 | disposition home or self-care (01) ==
LOC: JP.ED 22:52
DX: J45.901 Unspecified asthma with (acute) exacerbation (principal); J18.9 Pneumonia, unspecified organism; K21.9 Gastro-esophageal reflux disease without esophagitis; F41.0 Panic disorder [episodic paroxysmal anxiety]; Z86.2 Personal history of diseases of the blood and blood-forming organs and certain disorders involving the immune mechanism; Z87.891 Personal history of nicotine dependence; Z79.899 Other long term (current) drug therapy; Z88.0 Allergy status to penicillin; Z88.5 Allergy status to narcotic agent; Z88.8 Allergy status to other drugs, medicaments and biological substances
CPT/HCPCS: 36415; 71020; 80048; 85027; 96372; 99285; A9270; J1885; J3410; 99283

== ENCOUNTER 2017-10-26 23:33 | Emergency (ER) | payer MEDICAID ==
[2017-10-27 00:40] VITALS: BP 149/81
[2017-10-27] MEDS ORDERED: Albuterol 0.083% 2.5 MG/3 ML Neb Soln NEB ONE (01:13)
--- NOTE | 2017-10-27 02:10 | EDM.PDOC ---
ED HPI GENERAL MEDICAL PROBLEM - General Chief Complaint: Respiratory Problem Stated Complaint: SORE THROAT HARD TIME BREATHING Time Seen by Provider: 10/27/17 00:40 Source of Information: Reports: Patient History Limitations: Reports: No Limitations - History of Present Illness INITIAL COMMENTS - FREE TEXT/NARRATIVE: pt arrived with a marked cough. She feels like her bronchi are tight. Onset: Gradual Duration: Day(s): Location: Reports: Chest Associated Symptoms: Reports: Cough, Shortness of Breath Left Chest Pain Score (Numeric/FACES): 7 - Related Data Allergies Allergy/AdvReac Type Severity Reaction Status Date / Time hydromorphone [From Dilaudid] Allergy Vomiting Verified 10/27/17 00:40 alprazolam [From Xanax] AdvReac Anxiety Verified 10/27/17 00:40 Penicillins AdvReac Diarrhea Verified 10/27/17 00:40 Home Meds: Home Meds Esomeprazole [NexIUM] 40 mg PO DAILY 05/23/15 [History] Citalopram [Celexa] 20 mg PO DAILY 12/16/16 [History] Loratadine [Claritin] 10 mg PO DAILY 07/21/17 [History] Albuterol Sulfate [Proair Hfa] 2 puff IH Q4H PRN #1 hfa.aer.ad 08/24/17 [Rx] Mometasone/Formoterol [Dulera 200-5 MCG] 2 puff IH BIDRT 10/27/17 [History] Past Medical History HEENT 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: Impaired Vision Cardiovascular 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: Arrhythmia Other Cardiovascular History: first degree AV block Respiratory 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: Bronchitis, Recurrent Gastrointestinal 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: Gastritis, GERD, PUD 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: Endometrial Ablation, Other OB/BYN History: labial cyst Musculoskeletal 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: Back Pain, Chronic, Fracture Other Musculoskeletal History: mid level DJD Psychiatric 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: Anxiety, Panic Attack Hematologic 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: Anemia, Blood Transfusion(s), Iron Deficiency - Infectious Disease History Infectious Disease 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: Chicken Pox - Past Surgical History GI Surgical 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: Cholecystectomy, Colonoscopy, EGD Female Surgical 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: Tubal Ligation Social & Family History - Tobacco Use Smoking Status *Q: Light Tobacco Smoker Years of Tobacco use: 20 Packs/Tins Daily: 0.4 Used Tobacco, but Quit: Yes Month Tobacco Last Used: August Second Hand Smoke Exposure: Yes - Caffeine Use Caffeine Use: Reports: Coffee, Soda - Alcohol Use Days Per Week of Alcohol Use: 0 - Recreational Drug Use Recreational Drug Use: No Drug Use in Last 12 Months: No - Living Situation & Occupation Living situation: Reports: Single Occupation: Unemployed ED ROS GENERAL - Review of Systems Review Of Systems: See Below Constitutional: Reports: Chills, Weakness HEENT: Reports: Throat Pain Respiratory: Reports: Shortness of Breath, Cough Cardiovascular: Reports: No Symptoms Endocrine: Reports: No Symptoms GI/Abdominal: Reports: No Symptoms : Reports: No Symptoms Musculoskeletal: Reports: No Symptoms Skin: Reports: No Symptoms ED EXAM, GENERAL - Physical Exam Exam: See Below Free Text/Narrative:: pt arrived feeling sob and she is coughing markedly. Exam Limited By: No Limitations General Appearance: Alert, Anxious, Moderate Distress Ears: Normal TMs Nose: Normal Inspection Throat/Mouth: Normal Inspection Head: Atraumatic Neck: Normal Inspection Respiratory/Chest: Decreased Breath Sounds, Wheezing Cardiovascular: Regular Rate, Rhythm GI/Abdominal: Soft, Non-Tender (Female) Exam: Deferred Rectal (Female) Exam: Deferred Back Exam: Normal Inspection Extremities: No Pedal Edema Neurological: Alert, Oriented, Normal Cognition Course - Vital Signs Last Recorded V/S: Last Vital Signs Temp 36.6 C 10/27/17 00:38 Pulse 98 10/27/17 00:38 Resp 18 10/27/17 00:38 BP 149/81 H 10/27/17 00:38 Pulse Ox 96 10/27/17 00:38 - Orders/Labs/Meds Labs: Laboratory Tests 10/27/17 Range/Units 01:12 WBC 9.4 (4.5-11.0) K/uL RBC 4.63 (3.30-5.50) M/uL Hgb 12.6 (12.0-15.0) g/dL Hct 38.5 (36.0-48.0) % MCV 83 (80-98) fL MCH 27 (27-31) pg MCHC 33 (32-36) % Plt Count 266 (150-400) K/uL Neut % (Auto) 90 H (36-66) % Lymph % (Auto) 6 L (24-44) % [place] % (Auto) 4 (2-6) % Eos % (Auto) 0 L (2-4) % Baso % (Auto) 0 (0-1) % Meds: Medications Discontinued Medications Generic Name Dose Route Start Last Admin Trade Name Freq PRN Reason Stop Dose Admin Albuterol 2.5 mg 10/27/17 01:13 10/27/17 01:40 Proventil Neb Soln NEB 10/27/17 01:14 2.5 mg ONETIME ONE Administration - Re-Assessments/Exams Free Text/Narrative Re-Assessment/Exam: 10/27/17 02:08 influ a and b are neg. She was given a neb which was somewhat helpful. Her wbc was not elevated. 10/27/17 02:08 Departure - Departure Time of Disposition: 02:09 Disposition: Home, Self-Care 01 Condition: Fair Clinical Impression: Bronchitis - Discharge Information Instructions: Acute Bronchitis, [id number] Referrals: Estela Stovall SPORTS TEAM MANAGER [Primary Care Provider] - Forms: ED Department Discharge Care Plan Goals: push fluids, albuterol inhaler 2 puffs qid, robitussin ac 2 tsp q6h prn for cough., zpack cool mist humidifier,
--- NOTE | 2017-10-27 10:34 | CR ---
Chest 2V HISTORY: Shortness of breath COMPARISON: 10/24/2016. FINDINGS: Cardiac size and pulmonary vessels normal. There are no infiltrates or effusions. No pneumo thorax. The osseous structures appear normal. Previously seen infiltrate in the right upper lobe and left midlung zone has resolved. IMPRESSION: No acute pulmonary disease.
== END 2017-10-27 02:25 | disposition home or self-care (01) ==
LOC: JP.ED 23:33
DX: J40 Bronchitis, not specified as acute or chronic (principal); K21.9 Gastro-esophageal reflux disease without esophagitis; F41.0 Panic disorder [episodic paroxysmal anxiety]; Z79.899 Other long term (current) drug therapy; Z88.0 Allergy status to penicillin; Z88.8 Allergy status to other drugs, medicaments and biological substances; Z88.5 Allergy status to narcotic agent
CPT/HCPCS: 36415; 71046; 71046-26; 85025; 87804; 94640; 99285-25

== ENCOUNTER 2017-12-10 22:39 | Emergency (ER) | payer MEDICAID ==
[2017-12-10 22:58] VITALS: BP 144/89
[2017-12-10] MEDS: Codeine/guaiFENesin 100mg-10 MG/5 ML Syrup 10 ML Cup PO ONE (23:21)
[2017-12-10] MEDS: Albuterol/Ipratropium 3.0-0.5 MG/3 ML Neb Soln NEB ONE (23:21)
[2017-12-10] MEDS: Ketorolac 60 MG/2 ML SDV IM ONE (23:21)
--- NOTE | 2017-12-10 23:22 | EDM.PDOC ---
ED HPI GENERAL MEDICAL PROBLEM - General Chief Complaint: Respiratory Problem Stated Complaint: COUGH Time Seen by Provider: 12/10/17 23:05 Source of Information: Reports: Patient, Old Records, RN Notes Reviewed History Limitations: Reports: No Limitations - History of Present Illness INITIAL COMMENTS - FREE TEXT/NARRATIVE: 46-year-old female presents emergency department day complaint of chest pain, and cough with difficulty breathing. She has known history of asthma has been dealing with her asthma symptoms throughout the winter, was evaluated emergency department first part of October similar complaint. She states she's been out of her duelara for approximately one week. She's unsure if she has any refills of that medication. Sputum is white no fevers CHEST WALL Pain Score (Numeric/FACES): 8 - Related Data Allergies Allergy/AdvReac Type Severity Reaction Status Date / Time hydromorphone [From Dilaudid] Allergy Vomiting Verified 12/10/17 22:53 alprazolam [From Xanax] AdvReac Anxiety Verified 12/10/17 22:53 Penicillins AdvReac Diarrhea Verified 12/10/17 22:53 Home Meds: Home Meds Esomeprazole [NexIUM] 40 mg PO DAILY 05/23/15 [History] Citalopram [Celexa] 20 mg PO DAILY 12/16/16 [History] Loratadine [Claritin] 10 mg PO DAILY 07/21/17 [History] Albuterol Sulfate [Proair Hfa] 2 puff IH Q4H PRN #1 hfa.aer.ad 08/24/17 [Rx] Mometasone/Formoterol [Dulera 200-5 MCG] 2 puff IH BIDRT 10/27/17 [History] Albuterol/Ipratropium [DuoNeb 3.0-0.5 MG/3 ML] 3 ml .XX Q4H PRN 12/10/17 [ History] Past Medical History HEENT 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: Impaired Vision Cardiovascular 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: Arrhythmia Other Cardiovascular History: first degree AV block Respiratory 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: Bronchitis, Recurrent Gastrointestinal 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: Gastritis, GERD, PUD SAMPLE CLERK 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: Endometrial Ablation, Other OB/BYN History: labial cyst Musculoskeletal 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: Back Pain, Chronic, Fracture Other Musculoskeletal History: mid level DJD Psychiatric 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: Anxiety, Panic Attack Hematologic 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: Anemia, Blood Transfusion(s), Iron Deficiency - Infectious Disease History Infectious Disease 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: Chicken Pox - Past Surgical History GI Surgical 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: Cholecystectomy, Colonoscopy, EGD Female Surgical 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: Tubal Ligation Social & Family History - Tobacco Use Smoking Status *Q: Current Every Day Smoker Years of Tobacco use: 23 Packs/Tins Daily: 0.5 Used Tobacco, but Quit: Yes Month Tobacco Last Used: August Second Hand Smoke Exposure: Yes - Caffeine Use Caffeine Use: Reports: Coffee, Soda - Alcohol Use Days Per Week of Alcohol Use: 0 - Recreational Drug Use Recreational Drug Use: No Drug Use in Last 12 Months: No - Living Situation & Occupation Living situation: Reports: Single Occupation: Unemployed ED ROS GENERAL - Review of Systems Review Of Systems: See Below Constitutional: Denies: Fever, Chills HEENT: Reports: No Symptoms Respiratory: Reports: Shortness of Breath, Wheezing, Pleuritic Chest Pain, Cough , Sputum Cardiovascular: Reports: No Symptoms GI/Abdominal: Reports: No Symptoms : Reports: No Symptoms Musculoskeletal: Reports: No Symptoms Skin: Reports: No Symptoms Neurological: Reports: No Symptoms ED EXAM, GENERAL - Physical Exam Exam: See Below Exam Limited By: No Limitations General Appearance: Alert, WD/WN, No Apparent Distress Head: Atraumatic, Normocephalic Neck: Normal Inspection, Supple, Non-Tender, Full Range of Motion Respiratory/Chest: No Respiratory Distress, Wheezing, Prolonged Expiration Cardiovascular: Regular Rate, Rhythm, No Murmur Course - Vital Signs Last Recorded V/S: Last Vital Signs Temp 98.3 F 12/10/17 22:57 Pulse 91 12/10/17 22:57 Resp 18 12/10/17 22:57 BP 144/89 H 12/10/17 22:57 Pulse Ox 99 12/10/17 22:57 - Orders/Labs/Meds Orders: Active Orders 24 hr Category Date Time Status RT Aerosol Therapy [RC] ASDIRECTED Care 12/10/17 23:15 Ordered Meds: Medications Discontinued Medications Generic Name Dose Route Start Last Admin Trade Name Freq PRN Reason Stop Dose Admin Albuterol/Ipratropium 3 ml 12/10/17 23:15 Duoneb 3.0-0.5 Mg/3 Ml NEB 12/10/17 23:16 ONETIME ONE Guaifenesin/Codeine Phosphate 10 ml 12/10/17 23:14 Robitussin Ac PO 12/10/17 23:15 ONETIME ONE Ketorolac Tromethamine 60 mg 12/10/17 23:14 Toradol IM 12/10/17 23:15 ONETIME ONE Departure - Departure Time of Disposition: 23:20 Disposition: Home, Self-Care 01 Condition: Good Clinical Impression: Moderate persistent asthma Qualifiers: Asthma complication type: with acute exacerbation Qualified Code(s): J45.41 - Moderate persistent asthma with (acute) exacerbation - Discharge Information Referrals: Estela Stovall TOOLING ENGINEERING TECH [Primary Care Provider] - Additional Instructions: Take full course of prednisone to reduce inflammation in the lungs, take Robitussin before meals to be used as needed help suppress the cough, Please followup with your primary care provider in 3-5 days if not better, please call return to the emergency department with worsening of symptoms. - My Orders Last 24 Hours: My Active Orders 12/10/17 23:15 RT Aerosol Therapy [RC] ASDIRECTED - Assessment/Plan Last 24 Hours: My Active Orders 12/10/17 23:15 RT Aerosol Therapy [RC] ASDIRECTED Plan: Assessment Acuity = acute Site and laterality = exacerbation moderate persistent asthma Etiology = unclear etiology Manifestations = cough, wheezing Location of injury = Home Lab values = none Plan She received Toradol 60 mg IM 1, DuoNeb, Robitussin before meals which helped her symptoms while in the emergency department. Discharged home prednisone 20 mg by mouth daily 5 days, Robitussin-AC 10 mL by mouth every 6 hours when necessary 120 mL, she will call or pharmacy tomorrow for refills on the [facility] follow-up with primary care 3-5 days if no improvement This note was dictated using [employer] recognition software please call with any questions on syntax or geraldo.
== END 2017-12-10 23:49 | disposition home or self-care (01) ==
LOC: JP.ED 22:39
DX: J45.41 Moderate persistent asthma with (acute) exacerbation (principal); Z88.0 Allergy status to penicillin; Z88.5 Allergy status to narcotic agent; Z88.8 Allergy status to other drugs, medicaments and biological substances; Z87.891 Personal history of nicotine dependence
CPT/HCPCS: 94640; 96372; 99284; A9270; J1885; J7620

== ENCOUNTER 2018-03-22 20:44 | Emergency (ER) | payer MEDICAID ==
[2018-03-22 20:55] VITALS: BP 158/84
--- NOTE | 2018-03-22 21:24 | EDM.PDOC ---
ED HPI GENERAL MEDICAL PROBLEM - General Chief Complaint: General Stated Complaint: ANXIETY Time Seen by Provider: 03/22/18 21:10 Source of Information: Reports: Patient, Old Records, RN History Limitations: Reports: No Limitations - History of Present Illness INITIAL COMMENTS - FREE TEXT/NARRATIVE: 47 yo female presents with complaint of depression/anxiety. Has family issues that are precipitating this. Is not suicidal. Has not tolerated Xanax in the past. Is on Celexa 20 mg daily now. Has not mentioned today's sx's to her provider yet. Onset: Gradual Duration: Day(s):, Getting Worse Quality: Reports: Other (no physical pain) Severity: Moderate Improves with: Reports: None Worsens with: Reports: Other (family stress.) Context: Reports: Other (Hx of depression/anxiety) Associated Symptoms: Reports: No Other Symptoms Treatments MANAGER SOLUTION: Reports: Other (see below) (none) denies pain Pain Score (Numeric/FACES): 0 - Related Data Allergies Allergy/AdvReac Type Severity Reaction Status Date / Time alprazolam [From Xanax] AdvReac Anxiety Verified 03/22/18 20:56 hydromorphone [From Dilaudid] AdvReac Vomiting Verified 03/22/18 20:56 Penicillins AdvReac Diarrhea Verified 03/22/18 20:56 Home Meds: Home Meds Esomeprazole [NexIUM] 40 mg PO DAILY 05/23/15 [History] Citalopram [Celexa] 20 mg PO DAILY 12/16/16 [History] Loratadine [Claritin] 10 mg PO DAILY 07/21/17 [History] Albuterol Sulfate [Proair Hfa] 2 puff IH Q4H PRN #1 hfa.aer.ad 08/24/17 [Rx] Mometasone/Formoterol [Dulera 200-5 MCG] 2 puff IH BIDRT 10/27/17 [History] Albuterol/Ipratropium [DuoNeb 3.0-0.5 MG/3 ML] 3 ml .XX Q4H PRN 12/10/17 [ History] hydrOXYzine Pamoate [Hydroxyzine Pamoate] 25 mg PO QID PRN 03/22/18 [History] Past Medical History HEENT 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: Impaired Vision Cardiovascular 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: Arrhythmia Other Cardiovascular History: first degree AV block Respiratory 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: Bronchitis, Recurrent Gastrointestinal 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: Gastritis, GERD, PUD 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: Endometrial Ablation, Other OB/BYN History: labial cyst Musculoskeletal 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: Back Pain, Chronic, Fracture Other Musculoskeletal History: mid level DJD Psychiatric 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: Anxiety, Panic Attack Hematologic 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: Anemia, Blood Transfusion(s), Iron Deficiency - Infectious Disease History Infectious Disease 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: Chicken Pox - Past Surgical History GI Surgical 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: Cholecystectomy, Colonoscopy, EGD Female Surgical 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: Tubal Ligation Social & Family History - Tobacco Use Smoking Status *Q: Current Every Day Smoker Years of Tobacco use: 22 Packs/Tins Daily: 0.5 - Caffeine Use Caffeine Use: Reports: Coffee - Recreational Drug Use Recreational Drug Use: No - Living Situation & Occupation Living situation: Reports: Single Occupation: Unemployed ED ROS GENERAL - Review of Systems Review Of Systems: See Below Constitutional: Reports: No Symptoms HEENT: Reports: No Symptoms Respiratory: Reports: No Symptoms Cardiovascular: Reports: No Symptoms Endocrine: Reports: No Symptoms GI/Abdominal: Reports: No Symptoms : Reports: No Symptoms Musculoskeletal: Reports: No Symptoms Skin: Reports: No Symptoms Neurological: Reports: No Symptoms Psychiatric: Reports: Anxiety, Depression. Denies: Hallucinations, Homicidal Ideation, Suicidal Ideation ED EXAM, GENERAL - Physical Exam Exam: See Below General Appearance: Alert, WD/WN, No Apparent Distress Eye Exam: Bilateral Eye: Normal Inspection Ear Exam: Bilateral Ear: Auricle Normal, Canal Normal, TM normal Nose: Normal Inspection, Normal Mucosa, No Blood Throat/Mouth: Normal Inspection, Normal Lips, Normal Oropharynx, Normal Voice, No Airway Compromise Head: Atraumatic, Normocephalic Neck: Normal Inspection, Supple, Non-Tender Respiratory/Chest: No Respiratory Distress, Lungs Clear, Normal Breath Sounds, No Accessory Muscle Use Cardiovascular: Regular Rate, Rhythm, No Edema GI/Abdominal: Normal Bowel Sounds, Soft, Non-Tender, No Distention Extremities: Normal Inspection, Normal Range of Motion Neurological: Alert, Oriented, CN II-XII Intact, Normal Cognition, No Motor/ Sensory Deficits Psychiatric: Normal Affect, Flat Affect Skin Exam: Warm, Dry, Intact, Normal Color Lymphatic: No Adenopathy Course - Vital Signs Last Recorded V/S: Last Vital Signs Temp 36.9 C 06/03/18 20:59 Pulse 87 03/22/18 20:59 Resp 16 03/22/18 20:59 BP 158/84 H 03/22/18 20:59 Pulse Ox 94 L 03/22/18 20:59 Departure - Departure Time of Disposition: 21:24 Disposition: Home, Self-Care 01 Condition: Good Clinical Impression: Anxiety and depression - Discharge Information Referrals: Estela Stovall SHIPPING TEAM LEADER [Primary Care Provider] -
== END 2018-03-22 21:38 | disposition home or self-care (01) ==
LOC: JP.ED 20:44
DX: F41.9 Anxiety disorder, unspecified (principal); F32.9 Major depressive disorder, single episode, unspecified; F17.210 Nicotine dependence, cigarettes, uncomplicated; K21.9 Gastro-esophageal reflux disease without esophagitis; D64.9 Anemia, unspecified; Z79.899 Other long term (current) drug therapy; Z88.0 Allergy status to penicillin; Z88.6 Allergy status to analgesic agent; Z88.8 Allergy status to other drugs, medicaments and biological substances
CPT/HCPCS: 99283

== ENCOUNTER 2018-04-07 23:24 | Emergency (ER) | payer MEDICAID ==
[2018-04-07 23:45] VITALS: BP 156/96
[2018-04-07] MEDS ORDERED: Ondansetron 4 MG Tab.DIS PO ONE (23:48)
[2018-04-07] MEDS ORDERED: Ketorolac 60 MG/2 ML SDV IM ONE (23:52)
[2018-04-07] MEDS ORDERED: Gabapentin 300 MG Cap PO ONE (23:52)
--- NOTE | 2018-04-07 23:58 | EDM.PDOC ---
ED HPI GENERAL MEDICAL PROBLEM - General Chief Complaint: Back Pain or Injury Stated Complaint: REACTION TO PAIN MANAGEMENT Time Seen by Provider: 04/07/18 23:45 Source of Information: Reports: Patient, Old Records, RN History Limitations: Reports: No Limitations - History of Present Illness INITIAL COMMENTS - FREE TEXT/NARRATIVE: 47 yo female with chronic low back pain was seen in [place] at 10 am today and had radio-frequency ablation tx done on nerves in her low back for treatment. Her pain got worse than usual already on her way home. She did not tell anyone, but tonight cannot sleep. Has a phone follow up scheduled for tomorrow am with [place]. Her primary is in [place]. Pain is felt to be from degeneration. Onset: Other (chronic) Duration: Chronic, Getting Worse Location: Reports: Back Quality: Reports: Ache Severity: Moderate Improves with: Reports: None Worsens with: Reports: None Context: Reports: Other (had a procedure on her back this morning.) Associated Symptoms: Reports: No Other Symptoms, Nausea/Vomiting (no vomiting). 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 DIRECTOR OF KIDS: Reports: Other (see below) (See HPI) - Related Data Allergies Allergy/AdvReac Type Severity Reaction Status Date / Time alprazolam [From Xanax] AdvReac Anxiety Verified 04/07/18 23:38 hydromorphone [From Dilaudid] AdvReac Vomiting Verified 04/07/18 23:38 Penicillins AdvReac Diarrhea Verified 04/07/18 23:38 Home Meds: Home Meds Esomeprazole [NexIUM] 40 mg PO DAILY 05/23/15 [History] Citalopram [Celexa] 20 mg PO DAILY 12/16/16 [History] Loratadine [Claritin] 10 mg PO DAILY 07/21/17 [History] Albuterol Sulfate [Proair Hfa] 2 puff IH Q4H PRN #1 hfa.aer.ad 08/24/17 [Rx] Mometasone/Formoterol [Dulera 200-5 MCG] 2 puff IH BIDRT 10/27/17 [History] Albuterol/Ipratropium [DuoNeb 3.0-0.5 MG/3 ML] 3 ml INH Q4H PRN 12/10/17 [ History] hydrOXYzine Pamoate [Hydroxyzine Pamoate] 25 mg PO QID PRN 03/22/18 [History] Past Medical History HEENT 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: Impaired Vision Cardiovascular 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: Arrhythmia Other Cardiovascular History: first degree AV block Respiratory 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: Bronchitis, Recurrent Gastrointestinal 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: Gastritis, GERD, PUD 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: Endometrial Ablation, Other OB/BYN History: labial cyst Musculoskeletal 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: Back Pain, Chronic, Fracture Other Musculoskeletal History: mid level DJD Psychiatric 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: Anxiety, Panic Attack Hematologic 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: Anemia, Blood Transfusion(s), Iron Deficiency - Infectious Disease History Infectious Disease 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: Chicken Pox - Past Surgical History GI Surgical 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: Cholecystectomy, Colonoscopy, EGD Female Surgical 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: Tubal Ligation Musculoskeletal Surgical 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: Other (See Below) Other Musculoskeletal Surgeries/Procedures:: had radiofrequency facet joint denervation lower lumbar Social & Family History - Tobacco Use Smoking Status *Q: Current Every Day Smoker Years of Tobacco use: 20 Packs/Tins Daily: 0.5 - Caffeine Use Caffeine Use: Reports: Coffee, Soda - Recreational Drug Use Recreational Drug Use: No - Living Situation & Occupation Living situation: Reports: Single Occupation: Unemployed ED ROS GENERAL - Review of Systems Review Of Systems: See Below Constitutional: Reports: No Symptoms HEENT: Reports: No Symptoms Respiratory: Reports: No Symptoms Cardiovascular: Reports: No Symptoms GI/Abdominal: Reports: Nausea. Denies: Vomiting : Reports: No Symptoms Musculoskeletal: Reports: Back Pain Skin: Reports: No Symptoms Neurological: Reports: No Symptoms Psychiatric: Reports: No Symptoms ED EXAM,LOWER BACK PAIN/INJURY - Physical Exam Exam: See Below Exam Limited By: No Limitations General Appearance: Alert, WD/WN, No Apparent Distress Eye Exam: Bilateral Eye: Normal Inspection Ears: Normal External Exam, Normal Canal, Hearing Grossly Normal Nose: Normal Inspection, Normal Mucosa, No Blood Throat/Mouth: Normal Inspection, Normal Lips, Normal Voice, No Airway Compromise Head: Atraumatic, Normocephalic Neck: Normal Inspection Respiratory/Chest: No Respiratory Distress, Lungs Clear, Normal Breath Sounds, No Accessory Muscle Use Cardiovascular: Regular Rate, Rhythm, No Edema GI/Abdominal: Normal Bowel Sounds, Soft, Non-Tender, No Distention Back Exam: Normal Inspection, Paraspinal Tenderness (L of spine at L5 level). No: CVA Tenderness (R), CVA Tenderness (L) Extremities: Normal Inspection, Normal Range of Motion, Non-Tender, No Pedal Edema Neurological: Alert, Normal Mood/Affect, Normal Dorsiflexion, CN II-XII Intact, No Motor/Sensory Deficits, Oriented x 3 Psychiatric: Normal Affect, Normal Mood Skin Exam: Warm, Dry, Intact, Normal Color, No Rash Lymphatic: No Adenopathy Course - Vital Signs Text/Narrative:: Feeling better after our tx. Last Recorded V/S: Last Vital Signs Temp 36.5 C 04/07/18 23:41 Pulse 66 04/07/18 23:41 Resp 16 04/07/18 23:41 BP 156/96 H 04/07/18 23:41 Pulse Ox 96 04/07/18 23:41 - Orders/Labs/Meds Meds: Medications Discontinued Medications Generic Name Dose Route Start Last Admin Trade Name Jayna PRN Reason Stop Dose Admin Gabapentin 300 mg 04/07/18 23:52 04/08/18 00:03 Neurontin PO 04/07/18 23:53 300 mg ONETIME ONE Administration Ketorolac Tromethamine 60 mg 04/07/18 23:52 04/08/18 00:03 Toradol IM 04/07/18 23:53 60 mg ONETIME ONE Administration Ondansetron HCl 4 mg 04/07/18 23:48 04/08/18 00:03 Zofran Odt PO 04/07/18 23:49 4 mg ONETIME ONE Administration Departure - Departure Time of Disposition: 00:34 Disposition: Home, Self-Care 01 Condition: Good Clinical Impression: Acute exacerbation of chronic low back pain - Discharge Information Referrals: PCP,None [Primary Care Provider] - Forms: ED Department Discharge
== END 2018-04-08 00:40 | disposition home or self-care (01) ==
LOC: JP.ED 23:24
DX: G89.29 Other chronic pain (principal); M54.5 Low back pain; F17.210 Nicotine dependence, cigarettes, uncomplicated; K21.9 Gastro-esophageal reflux disease without esophagitis; F41.9 Anxiety disorder, unspecified; Z79.899 Other long term (current) drug therapy; Z88.0 Allergy status to penicillin
CPT/HCPCS: 96372; 99283; A9270; J1885

== ENCOUNTER 2018-05-31 16:35 | Emergency (ER) | payer MEDICAID ==
[2018-05-31 16:51] VITALS: BP 165/76
--- NOTE | 2018-05-31 17:14 | EDM.PDOC ---
ED HPI GENERAL MEDICAL PROBLEM - General Chief Complaint: Asthma Stated Complaint: asthma attack Time Seen by Provider: 05/31/18 16:59 Source of Information: Reports: Patient History Limitations: Reports: No Limitations - History of Present Illness INITIAL COMMENTS - FREE TEXT/NARRATIVE: 47 yo presents with increase in SOB associated with her Asthma and humidity. She has been using her daily medications and albuterol every 2-4 hours. She does have air conditioning but just doesn't want to be inside. She has appt with PCP end of this week. denies lightheadedness or chest pain. HAs used prednisone in the past Pt is a tobacco user and plans on quitting when this pack is done. SHe has patches at home for quit assist - Related Data Allergies Allergy/AdvReac Type Severity Reaction Status Date / Time alprazolam [From Xanax] AdvReac Anxiety Verified 05/31/18 16:52 hydromorphone [From Dilaudid] AdvReac Vomiting Verified 05/31/18 16:52 Penicillins AdvReac Diarrhea Verified 05/31/18 16:52 Home Meds: Home Meds Esomeprazole [NexIUM] 40 mg PO DAILY 05/23/15 [History] Citalopram [Celexa] 20 mg PO DAILY 12/16/16 [History] Loratadine [Claritin] 10 mg PO DAILY 07/21/17 [History] Albuterol Sulfate [Proair Hfa] 2 puff IH Q4H PRN #1 hfa.aer.ad 08/24/17 [Rx] Albuterol/Ipratropium [DuoNeb 3.0-0.5 MG/3 ML] 3 ml INH Q4H PRN 12/10/17 [ History] Fluticasone/Salmeterol [Fluticasone-Salmeterol 232-14] 05/31/18 [History] busPIRone HCl [Buspirone HCl] 05/31/18 [History] Past Medical History HEENT 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: Impaired Vision Cardiovascular 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: Arrhythmia Other Cardiovascular History: first degree AV block Respiratory 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: Bronchitis, Recurrent Gastrointestinal 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: Gastritis, GERD, PUD 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: Endometrial Ablation, Other 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: labial cyst Musculoskeletal 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: Back Pain, Chronic, Fracture Other Musculoskeletal History: mid level DJD Psychiatric 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: Anxiety, Panic Attack Hematologic 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: Anemia, Blood Transfusion(s), Iron Deficiency - Infectious Disease History Infectious Disease 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: Chicken Pox - Past Surgical History GI Surgical 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: Cholecystectomy, Colonoscopy, EGD Female Surgical 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: Tubal Ligation Musculoskeletal Surgical 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: Other (See Below) Other Musculoskeletal Surgeries/Procedures:: had radiofrequency facet joint denervation lower lumbar Social & Family History - Tobacco Use Smoking Status *Q: Current Every Day Smoker Years of Tobacco use: 25 Packs/Tins Daily: 0.2 - Caffeine Use Caffeine Use: Reports: Coffee, Soda - Living Situation & Occupation Living situation: Reports: Single Occupation: Unemployed ED ROS GENERAL - Review of Systems Review Of Systems: See Below Constitutional: Denies: Fever, Chills Respiratory: Reports: Shortness of Breath, Wheezing. Denies: Cough, Sputum Cardiovascular: Denies: Chest Pain GI/Abdominal: Denies: Abdominal Pain Skin: Denies: Rash ED EXAM, GENERAL - Physical Exam Exam: See Below Exam Limited By: No Limitations General Appearance: Alert, WD/WN, No Apparent Distress Neck: Normal Inspection, Supple, Non-Tender, Full Range of Motion Respiratory/Chest: No Respiratory Distress, No Accessory Muscle Use, Wheezing ( scattered). No: Crackles, Rhonchi Cardiovascular: Regular Rate, Rhythm, No Murmur Neurological: Alert, Oriented Psychiatric: Normal Affect, Normal Mood Skin Exam: Warm, Dry, Intact Course - Vital Signs Last Recorded V/S: Last Vital Signs Temp 36.0 C 05/31/18 16:59 Pulse 82 05/31/18 16:59 Resp 16 05/31/18 16:59 BP 165/76 H 05/31/18 16:59 Pulse Ox 98 05/31/18 16:59 Departure - Departure Time of Disposition: 17:12 Disposition: Home, Self-Care 01 Condition: Good Clinical Impression: Asthma Qualifiers: Asthma severity: moderate Asthma persistence: persistent Asthma complication type: with acute exacerbation Qualified Code(s): J45.41 - Moderate persistent asthma with (acute) exacerbation - Discharge Information *PRESCRIPTION DRUG MONITORING PROGRAM REVIEWED*: Not Applicable *COPY OF PRESCRIPTION DRUG MONITORING REPORT IN PATIENT ALMAZ: Not Applicable Instructions: Asthma, Adult, [id number] Referrals: Estela Stovall AUTHOR [Primary Care Provider] - Forms: ED Department Discharge Additional Instructions: Prednisone 20 mg - 3 tablets for 4 days, 2tablets for 3 days, 1 tablet for 3 days, half tablet for 4 days albuterol nebs spaced 4 hours apart stop smoking
== END 2018-05-31 17:20 | disposition home or self-care (01) ==
LOC: JP.ED 16:35
DX: J45.41 Moderate persistent asthma with (acute) exacerbation (principal); F17.210 Nicotine dependence, cigarettes, uncomplicated; Z88.0 Allergy status to penicillin; Z88.5 Allergy status to narcotic agent; Z88.8 Allergy status to other drugs, medicaments and biological substances
CPT/HCPCS: 99285

== ENCOUNTER 2018-12-27 15:04 | Emergency (ER) | payer MEDICAID ==
[2018-12-27] MEDS ORDERED: Albuterol 0.083% 2.5 MG/3 ML Neb Soln NEB ONE (15:33)
[2018-12-27] MEDS ORDERED: Acetaminophen 500 MG Tab PO ONE (15:34)
--- NOTE | 2018-12-27 15:39 | EDM.PDOC ---
ED HPI GENERAL MEDICAL PROBLEM - General Chief Complaint: Fever Stated Complaint: COUGH,BODY ACHES,FEVER Time Seen by Provider: 12/27/18 15:25 Source of Information: Reports: Patient, Family, Old Records History Limitations: Reports: No Limitations - History of Present Illness INITIAL COMMENTS - FREE TEXT/NARRATIVE: 48 yo 1/2 ppd NA female presents with cough and nocturnal fevers for a couple nights. Had a flu shot in July. Had influenza A in September. Has a nebulizer at home that she used about noon today last. No Tylenol since last night. Onset Date: 12/25/18 Duration: Day(s): (2), Waxing/Waning Location: Reports: Chest (cough) Quality: Reports: Other (no pain) Severity: Moderate Improves with: Reports: None Worsens with: Reports: Other (? 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 (see below) (albuterol 3.5 hrs ago) Generalized Pain Score (Numeric/FACES): 9 - Related Data Allergies Allergy/AdvReac Type Severity Reaction Status Date / Time alprazolam [From Xanax] AdvReac Anxiety Verified 12/27/18 15:14 hydromorphone [From Dilaudid] AdvReac Vomiting Verified 12/27/18 15:14 Penicillins AdvReac Diarrhea Verified 12/27/18 15:14 Home Meds: Home Meds Citalopram [Citalopram HBr] 40 mg PO DAILY 12/16/16 [History] Loratadine [Claritin] 10 mg PO DAILY PRN 07/21/17 [History] Albuterol/Ipratropium [DuoNeb 3.0-0.5 MG/3 ML] 3 ml INH Q4H PRN 12/10/17 [ History] Omeprazole 40 mg PO DAILY 07/28/18 [History] busPIRone HCl [busPIRone] 30 mg PO BID 07/28/18 [History] Itraconazole 2 tab PO BID 08/26/18 [History] Ibuprofen 600 mg PO Q4H PRN 09/25/18 [History] Umeclidinium Brm/Vilanterol Tr [Anoro Ellipta 62.5-25 MCG] 1 puff IH DAILY 09/25 [History] Tiotropium Br/Olodaterol HCl [Stiolto Respimat Inhal [place]] 2 puff INH DAILY 08/07 [History] Past Medical History HEENT 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: Impaired Vision Cardiovascular 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: Arrhythmia Other Cardiovascular History: first degree AV block Respiratory 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: Bronchitis, Recurrent, COPD, Other (See Below) Other Respiratory History: fungal pneumonia Gastrointestinal 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: Gastritis, GERD, PUD 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: Endometrial Ablation, Other HOME PERFORMANCE LABORER History: labial cyst Musculoskeletal 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: Back Pain, Chronic, Fracture Other Musculoskeletal History: mid level DJD Psychiatric 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: Anxiety, Panic Attack Hematologic 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: Anemia, Blood Transfusion(s), Iron Deficiency - Infectious Disease History Infectious Disease 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: Influenza - Past Surgical History Other Respiratory Surgeries/Procedures: had influenza A in August of 2018 GI Surgical 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: Cholecystectomy, Colonoscopy, EGD Female Surgical 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: Tubal Ligation Musculoskeletal Surgical 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: Other (See Below) Other Musculoskeletal Surgeries/Procedures:: had radiofrequency facet joint denervation lower lumbar Social & Family History - Tobacco Use Smoking Status *Q: Current Every Day Smoker Years of Tobacco use: 30 Packs/Tins Daily: 0.5 - Caffeine Use Caffeine Use: Reports: Coffee, Soda - Recreational Drug Use Recreational Drug Use: No - Living Situation & Occupation Living situation: Reports: Single Occupation: Unemployed ED ROS GENERAL - Review of Systems Review Of Systems: See Below Constitutional: Reports: Fever, Chills, Malaise HEENT: Reports: No Symptoms Respiratory: Reports: Wheezing, Cough. Denies: Shortness of Breath, Pleuritic Chest Pain, Sputum, Hemoptysis Cardiovascular: Reports: No Symptoms Endocrine: Reports: No Symptoms GI/Abdominal: Reports: No Symptoms : Reports: No Symptoms Musculoskeletal: Reports: No Symptoms Skin: Reports: No Symptoms Neurological: Reports: No Symptoms ED EXAM, GENERAL - Physical Exam Exam: See Below Exam Limited By: No Limitations General Appearance: Alert, WD/WN, No Apparent Distress Eye Exam: Bilateral Eye: Normal Inspection Ears: Normal External Exam, Normal Canal, Hearing Grossly Normal, Normal TMs Ear Exam: Bilateral Ear: Auricle Normal, Canal Normal, TM normal Nose: Normal Inspection, Normal Mucosa, No Blood Throat/Mouth: Normal Inspection, Normal Lips, Normal Oropharynx, Normal Voice, No Airway Compromise Head: Atraumatic, Normocephalic Neck: Normal Inspection Respiratory/Chest: No Respiratory Distress, Normal Breath Sounds, No Accessory Muscle Use, Crackles (diffuse), Wheezing (faint). No: Lungs Clear, Rhonchi Cardiovascular: Regular Rate, Rhythm, No Edema GI/Abdominal: Normal Bowel Sounds, Soft, Non-Tender, No Distention Back Exam: Normal Inspection. No: CVA Tenderness (R), CVA Tenderness (L) Extremities: Normal Inspection, Normal Range of Motion, Non-Tender, No Pedal Edema Neurological: Alert, Oriented, CN II-XII Intact, Normal Cognition, No Motor/ Sensory Deficits Psychiatric: Normal Affect, Normal Mood Skin Exam: Warm, Dry, Intact, Normal Color, No Rash Course - Vital Signs Last Recorded V/S: Last Vital Signs Temp 36.9 C 12/27/18 15: Pulse 88 12/27/18 15: Resp 20 12/27/18 15: BP 146/95 H 12/27/18 15: Pulse Ox 97 12/27/18 15:19 - Orders/Labs/Meds Orders: Active Orders 24 hr Category Date Time Status RT Aerosol Therapy [RC] ASDIRECTED Care 12/27/18 15:34 Active Labs: Laboratory Tests 12/27/18 Range/Units 15:33 WBC 4.9 (4.5-11.0) K/uL RBC 5.06 (3.30-5.50) M/uL Hgb 12.5 D (12.0-15.0) g/dL Hct 40.4 (36.0-48.0) % MCV 80 (80-98) fL MCH 25 L (27-31) pg MCHC 31 L (32-36) % Plt Count 212 (150-400) K/uL Meds: Medications Discontinued Medications Generic Name Dose Route Start Last Admin Trade Name Freq PRN Reason Stop Dose Admin Acetaminophen 1,000 mg 12/27/18 15:34 12/27/18 15:42 Tylenol Extra Strength PO 12/27/18 15:35 1,000 mg ONETIME ONE Administration Albuterol 2.5 mg 12/27/18 15:33 12/27/18 15:43 Proventil Neb Soln NEB 12/27/18 15:34 2.5 mg ONETIME ONE Administration Departure - Departure Time of Disposition: 16:03 Disposition: Home, Self-Care 01 Condition: Fair Clinical Impression: Influenza A, Tobacco abuse disorder - Discharge Information *PRESCRIPTION DRUG MONITORING PROGRAM REVIEWED*: No *COPY OF PRESCRIPTION DRUG MONITORING REPORT IN PATIENT ALMAZ: No Instructions: Influenza, Adult, [id number] Referrals: Estlea Stvoall NP [Primary Care Provider] - Forms: ED Department Discharge Additional Instructions: Add acetaminophen to what you are already doing. Wash your hands often to reduce spread. Drink ample fluids. No smoking. F/U with your provider to discuss your weak immune system. Return here as needed. - My Orders Last 24 Hours: My Active Orders 12/27/18 15:34 RT Aerosol Therapy [RC] ASDIRECTED - Assessment/Plan Last 24 Hours: My Active Orders 12/27/18 15:34 RT Aerosol Therapy [RC] ASDIRECTED
[2018-12-27 16:03] VITALS: BP 146/95
== END 2018-12-27 16:19 | disposition home or self-care (01) ==
LOC: JP.ED 15:04
DX: J10.1 Influenza due to other identified influenza virus with other respiratory manifestations (principal); J44.9 Chronic obstructive pulmonary disease, unspecified; F17.210 Nicotine dependence, cigarettes, uncomplicated; Z72.0 Tobacco use; Z88.0 Allergy status to penicillin; Z88.8 Allergy status to other drugs, medicaments and biological substances; Z79.899 Other long term (current) drug therapy
CPT/HCPCS: 36415; 85027; 87804; 94640; 99283; A9270

== ENCOUNTER 2019-01-16 17:31 | Emergency (ER) | payer MEDICAID ==
[2019-01-16 18:09] VITALS: BP 149/79
[2019-01-16] MEDS ORDERED: Cyclobenzaprine 10 MG Tab PO ONE (18:45)
[2019-01-16] MEDS ORDERED: Ketorolac 60 MG/2 ML SDV IM ONE (18:45)
--- NOTE | 2019-01-16 18:53 | EDM.PDOC ---
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 - Related Data Allergies Allergy/AdvReac Type Severity Reaction Status Date / Time alprazolam [From Xanax] AdvReac Anxiety Verified 12/27/18 15:14 hydromorphone [From Dilaudid] AdvReac Vomiting Verified 12/27/18 15:14 Penicillins AdvReac Diarrhea Verified 12/27/18 15:14 Home Meds: Home Meds Loratadine [Claritin] 10 mg PO DAILY PRN 07/21/17 [History] Omeprazole 40 mg PO DAILY 07/28/18 [History] busPIRone HCl [busPIRone] 30 mg PO BID 07/28/18 [History] Itraconazole 2 tab PO BID 08/26/18 [History] Ibuprofen 600 mg PO Q4H PRN 09/25/18 [History] Tiotropium Br/Olodaterol HCl [Stiolto Respimat Inhal [place]] 2 puff INH DAILY 08/07 [History] Citalopram Hydrobromide [Celexa] 20 mg PO DAILY 01/16/19 [History] Past Medical History HEENT 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: Impaired Vision Cardiovascular 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: Arrhythmia Other Cardiovascular History: first degree AV block Respiratory 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: Bronchitis, Recurrent, COPD, Other (See Below) Other Respiratory History: fungal pneumonia Gastrointestinal 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: Gastritis, GERD, PUD 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: Endometrial Ablation, Other 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 History: labial cyst Musculoskeletal 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: Back Pain, Chronic, Fracture Other Musculoskeletal History: mid level DJD Psychiatric 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: Anxiety, Panic Attack Hematologic 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: Anemia, Blood Transfusion(s), Iron Deficiency - Infectious Disease History Infectious Disease 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: Influenza - Past Surgical History Cardiovascular Surgical 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: None Other Respiratory Surgeries/Procedures: had influenza A in August of 2018 GI Surgical 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: Cholecystectomy, Colonoscopy, EGD Female Surgical 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: Tubal Ligation Musculoskeletal Surgical 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: Other (See Below) Other Musculoskeletal Surgeries/Procedures:: had radiofrequency facet joint denervation lower lumbar Social & Family History - Family History Family Medical History: Noncontributory - Tobacco Use Smoking Status *Q: Current Every Day Smoker Years of Tobacco use: 25 Packs/Tins Daily: 0.5 Used Tobacco, but Quit: No Second Hand Smoke Exposure: Yes - Caffeine Use Caffeine Use: Reports: Coffee, Soda - Recreational Drug Use Recreational Drug Use: No - Living Situation & Occupation Living situation: Reports: Single Occupation: Unemployed Review of Systems - Review of Systems Review Of Systems: ROS reveals no pertinent complaints other than HPI. Constitutional: Reports: No Symptoms Respiratory: Reports: No Symptoms Cardiovascular: Reports: No Symptoms GI/Abdominal: Reports: No Symptoms Musculoskeletal: Reports: Other (left sciatic pain flair up for past ten days. Has used tylenol and ibuprofen with little relief. Also uses crutches to take pressure off leg. ) Neurological: Reports: No Symptoms Psychiatric: Reports: No Symptoms ED EXAM, GENERAL - Physical Exam Exam: See Below Free Text/Narrative:: Patient with long history of sciatic pain for which she is seen in pain clinic in [facility] where she has nerve ablation procedures that give her 6-9 months of pain relief. Was due for treatment in September but was ill and clinic asked her to stay away until better. Pain resolved some so she didn't go in. Now presents with ten day history of pain that now does not resolve with ibuprofen and tylenol. Patient very uncomfortable sitting in cart, lying with most of body weight on right hip. Positive left leg raise. Pedal pulses equal bilaterally. Good sensation to toes. Exam Limited By: No Limitations General Appearance: Alert, WD/WN, No Apparent Distress Back Exam: Other (limited range of motion due to pain in left hip that radiates to left back. ) Neurological: Alert, Oriented, Normal Cognition Psychiatric: Normal Affect, Normal Mood Skin Exam: Warm, Dry, Intact, Normal Color, No Rash Course - Vital Signs Text/Narrative:: Toradol 60 mg IM and Flexeril 10 mg PO given in ER. Last Recorded V/S: Last Vital Signs Temp 96.5 F 01/16/19 18:01 Pulse 99 01/16/19 18:01 Resp 14 01/16/19 18:01 BP 149/79 H 03/30/19 18:01 Pulse Ox 97 01/16/19 18:01 - Orders/Labs/Meds Meds: Medications Discontinued Medications Generic Name Dose Route Start Last Admin Trade Name Jayna PRN Reason Stop Dose Admin Cyclobenzaprine HCl 10 mg 01/16/19 18:45 01/16/19 19:13 Flexeril PO 01/16/19 18:46 10 mg ONETIME ONE Administration Ketorolac Tromethamine 60 mg 01/16/19 18:45 01/16/19 19:13 Toradol IM 01/16/19 18:46 60 mg ONETIME ONE Administration Departure - Departure Disposition: Home, Self-Care 01 Condition: Good Clinical Impression: Left sciatic nerve pain - Discharge Information *PRESCRIPTION DRUG MONITORING PROGRAM REVIEWED*: No *COPY OF PRESCRIPTION DRUG MONITORING REPORT IN PATIENT ALMAZ: No Instructions: Sciatica, [id number] Referrals: Estela Stovall TIP FINISHER [Primary Care Provider] - Forms: ED Department Discharge Additional Instructions: Continue to use ibuprofen for baseline pain control, use hydrocodone as needed for breakthrough pain, use Flexeril as needed for muscle relaxant, please contact your pain specialist on Friday for further reevaluation <Nelson Mccloud - Last Filed: 01/16/19 19:47> ED EXAM, GENERAL - Physical Exam Free Text/Narrative:: Agree with above exam Departure - Departure Time of Disposition: 19:46 - Assessment/Plan Plan: Assessment Acuity = acute on chronic Site and laterality = sciatic pain left leg Etiology = unclear etiology Manifestations = pain Location of injury = Home Lab values = none Plan Good relief with combination Toradol and Flexeril provided in the ED prescription written for hydrocodone 5/325 one tab by mouth every 3-4 hours when necessary total #10 also Flexeril 1 tab by mouth 3 times a day when necessary total #15 she will contact her pain specialist on Friday, Nelson Sorto MD was personally available for consultation in the ED. I have reviewed the chart and agree with the documentation as recorded by the TIP FINISHER Student, including the assessment, treatment plan and disposition. Nelson Sorto MD personally saw and examined the patient. I have reviewed and agree with the TIP FINISHER Student's findings. This note was dictated using [employer] voice recognition software please call with any questions on syntax or grammar.
== END 2019-01-16 19:56 | disposition home or self-care (01) ==
LOC: JP.ED 17:31
DX: M54.32 Sciatica, left side (principal); F17.210 Nicotine dependence, cigarettes, uncomplicated; Z88.8 Allergy status to other drugs, medicaments and biological substances; Z88.0 Allergy status to penicillin; Z79.899 Other long term (current) drug therapy
CPT/HCPCS: 96372; 99283; A9270; J1885

== ENCOUNTER 2019-04-19 03:04 | Emergency (ER) | payer MEDICAID ==
[2019-04-19 03:13] VITALS: BP 144/72
[2019-04-19] MEDS ORDERED: Ondansetron 4 MG/2 ML SDV IVPUSH ONE (03:24)
[2019-04-19] MEDS ORDERED: fentaNYL 100 MCG/2 ML SDV IVPUSH ONE (03:24)
--- NOTE | 2019-04-19 03:27 | EDM.PDOC ---
ED HPI GENERAL MEDICAL PROBLEM - General Chief Complaint: Back Pain or Injury Stated Complaint: ABDOMINAL PAIN Time Seen by Provider: 04/19/19 03:21 Source of Information: Reports: Patient, RN Notes Reviewed History Limitations: Reports: No Limitations - History of Present Illness INITIAL COMMENTS - FREE TEXT/NARRATIVE: 48-year-old female presents emergency department today complaint of sudden onset right flank pain she states this has occurred within the last 12 hours very intense was given Toradol and ketamine in the ambulance which provided significant relief for her she is still feeling some pain and nausea no history of nephrolithiasis Right Lower Back Pain Score (Numeric/FACES): 8 - Related Data Allergies Allergy/AdvReac Type Severity Reaction Status Date / Time alprazolam [From Xanax] AdvReac Anxiety Verified 04/19/19 03:09 hydromorphone [From Dilaudid] AdvReac Vomiting Verified 04/19/19 03:09 Penicillins AdvReac Diarrhea Verified 04/19/19 03:09 Home Meds: Home Meds Loratadine [Claritin] 10 mg PO DAILY PRN 07/21/17 [History] Omeprazole 40 mg PO DAILY 07/28/18 [History] busPIRone HCl [busPIRone] 30 mg PO BID 07/28/18 [History] Itraconazole 2 tab PO BID 08/26/18 [History] Ibuprofen 600 mg PO Q4H PRN 09/25/18 [History] Tiotropium Br/Olodaterol HCl [Stiolto Respimat Inhal [place]] 2 puff INH DAILY 08/07 [History] Citalopram Hydrobromide [Celexa] 20 mg PO DAILY 01/16/19 [History] Montelukast Sodium 10 mg PO BEDTIME 04/19/19 [History] Past Medical History HEENT 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: Impaired Vision Cardiovascular 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: Arrhythmia Other Cardiovascular History: first degree AV block Respiratory 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: Bronchitis, Recurrent, COPD, Other (See Below) Other Respiratory History: fungal pneumonia Gastrointestinal 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: Gastritis, GERD, PUD 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: Endometrial Ablation, Other TELEVISION INSPECTOR History: labial cyst Musculoskeletal 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: Back Pain, Chronic, Fracture Other Musculoskeletal History: mid level DJD Psychiatric 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: Anxiety, Panic Attack Hematologic 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: Anemia, Blood Transfusion(s), Iron Deficiency - Infectious Disease History Infectious Disease 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: Influenza - Past Surgical History Cardiovascular Surgical 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: None Other Respiratory Surgeries/Procedures: had influenza A in August of 2018 GI Surgical 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: Cholecystectomy, Colonoscopy, EGD Female Surgical 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: Tubal Ligation Musculoskeletal Surgical 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: Other (See Below) Other Musculoskeletal Surgeries/Procedures:: had radiofrequency facet joint denervation lower lumbar Social & Family History - Family History Family Medical History: Noncontributory - Tobacco Use Smoking Status *Q: Current Some Day Smoker Years of Tobacco use: 30 Packs/Tins Daily: 0.5 Second Hand Smoke Exposure: No - Caffeine Use Caffeine Use: Reports: Coffee - Recreational Drug Use Recreational Drug Use: No - Living Situation & Occupation Living situation: Reports: Single Occupation: Unemployed ED ROS GENERAL - Review of Systems Review Of Systems: See Below Constitutional: Reports: No Symptoms HEENT: Reports: No Symptoms Respiratory: Reports: No Symptoms Cardiovascular: Reports: No Symptoms GI/Abdominal: Reports: Abdominal Pain, Nausea. Denies: Vomiting : Reports: Flank Pain Musculoskeletal: Reports: No Symptoms Skin: Reports: No Symptoms Neurological: Reports: No Symptoms ED EXAM, GI/ABD - Physical Exam Exam: See Below Exam Limited By: No Limitations General Appearance: Alert, WD/WN, No Apparent Distress Respiratory/Chest: No Respiratory Distress, Lungs Clear, Normal Breath Sounds, No Accessory Muscle Use, Chest Non-Tender Cardiovascular: Regular Rate, Rhythm, No Murmur GI/Abdominal Exam: Normal Bowel Sounds, Soft, No Distention, Tender (Tender along the right flank) Course - Vital Signs Last Recorded V/S: Last Vital Signs Temp 96.6 F 04/19/19 03:12 Pulse 77 04/19/19 03:12 Resp 14 04/19/19 03:12 BP 144/72 H 04/19/19 03:12 Pulse Ox 97 04/19/19 03:12 - Orders/Labs/Meds Orders: Active Orders 24 hr Category Date Time Status UA W/MICROSCOPIC [URIN] Urgent Lab 04/19/19 03:29 Ordered Urine HCG [HCG QUALITATIVE,URINE] [URCHEM] Stat Lab 04/19/19 03:55 Ordered Labs: Laboratory Tests 04/19/19 04/19/19 Range/Units 03:35 03:35 WBC 8.5 (4.5-11.0) K/uL RBC 4.59 (3.30-5.50) M/uL Hgb 11.4 L (12.0-15.0) g/dL Hct 36.3 (36.0-48.0) % MCV 79 L (80-98) fL MCH 25 L (27-31) pg MCHC 31 L (32-36) % Plt Count 240 (150-400) K/uL Neut % (Auto) 77 H (36-66) % Lymph % (Auto) 11 L (24-44) % [place] % (Auto) 7 H (2-6) % Eos % (Auto) 4 (2-4) % Baso % (Auto) 0 (0-1) % Sodium 141 (140-148) mmol/L Potassium 3.4 L (3.6-5.2) mmol/L Chloride 105 (100-108) mmol/L Carbon Dioxide 27 (21-32) mmol/L Anion Gap 12.4 (5.0-14.0) mmol/L BUN 16 (7-18) mg/dL Creatinine 0.7 (0.6-1.0) mg/dL Est Cr Clr Drug Dosing 95.58 mL/min Estimated GFR (MDRD) > 60 (>60) Glucose 136 H (74-106) mg/dL Calcium 8.4 L (8.5-10.1) mg/dL Total Bilirubin 0.2 (0.2-1.0) mg/dL AST 20 (15-37) U/L ALT 43 (12-78) U/L Alkaline Phosphatase 129 H (46-116) U/L Total Protein 6.7 (6.4-8.2) g/dL Albumin 3.0 L (3.4-5.0) g/dL Globulin 3.7 H (2.3-3.5) g/dL Albumin/Globulin Ratio 0.8 L (1.2-2.2) Meds: Medications Discontinued Medications Generic Name Dose Route Start Last Admin Trade Name Freq PRN Reason Stop Dose Admin Fentanyl 50 mcg 04/19/19 03:24 04/19/19 03:38 Sublimaze IVPUSH 04/19/19 03:25 50 mcg ONETIME ONE Administration Hydromorphone HCl 1 mg 04/19/19 04:39 Dilaudid IVPUSH 04/19/19 04:40 ONETIME ONE Ondansetron HCl 4 mg 04/19/19 03:24 04/19/19 03:43 Zofran IVPUSH 04/19/19 03:25 4 mg ONETIME ONE Administration Departure - Departure Time of Disposition: 04:46 Disposition: Home, Self-Care 01 Condition: Fair Clinical Impression: Nephrolithiasis - Discharge Information Referrals: PCP,None [Primary Care Provider] - Forms: ED Department Discharge Additional Instructions: Use Zofran as needed to control nausea and vomiting symptoms, use ibuprofen for baseline pain control use Percocet for breakthrough pain, Please followup with your primary care provider in 3-5 days if not better, please call return to the emergency department with worsening of symptoms. 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 Received 50 g of fentanyl as well as 1 mg Dilaudid. Discharge home with Zofran 4 mg ODT 1 tab by mouth 3 times a day when necessary total #10 and Percocet 5/325 one tablet by mouth 3 times a day when necessary total #15 follow-up primary care 3- 5 days if no improvement This note was dictated using [employer] voice recognition software please call with any questions on syntax or grammar.
--- NOTE | 2019-04-19 04:18 | CRLCT ---
INDICATION: Right flank pain TECHNIQUE: CT Abdomen and pelvis without i.v. contrast. Coronal and sagittal reformats were obtained. COMPARISON: None FINDINGS: Lower chest: Unremarkable. Mild anemia is present with the cardiac chambers appearing lucent with respect to the myocardium. Liver: Moderate diffuse fatty infiltration of the liver is noted with an oval region of increased density seen in the right lobe of the liver that measures 3.5 x 2.9 cm. Spleen: Unremarkable. Pancreas: Unremarkable. Gallbladder: Unremarkable. Kidney: There is a 5 mm stone present in the right ureterovesicular junction causing moderate right hydroureter and severe right renal pelvicaliectasis. A 1 mm stone is present in the midzone of the right kidney. The left kidney and left ureter are unremarkable in appearance. Adrenal: Unremarkable. Bowel: Unremarkable. The appendix is normal in appearance and size. Vascular: Unremarkable. Lymph: Unremarkable. Peritoneum: Unremarkable. No pneumoperitoneum is seen. No significant ascites is noted. Pelvis: Unremarkable. Soft tissue: Unremarkable. Bone: Unremarkable for age. IMPRESSIONS: 1. There is a 5 mm stone present in the right ureterovesicular junction causing moderate right hydroureter and severe right renal pelvicaliectasis. 2. Moderate diffuse fatty infiltration of the liver is noted with an oval region of increased density seen in the right lobe of the liver that measures 3.5 x 2.9 cm. Assessment outpatient liver MRI is recommended, especially if the patient has a history of prior primary malignancy or chronic liver disease. Dictated by Hamzah Coto MD @ 04/19/2019 4:16:22 AM Please note that all CT scans at this facility use dose modulation, iterative reconstruction, and/or weight-based dosing when appropriate to reduce radiation dose to as low as reasonably achievable. Dictated by: Hamzah Coto MD @ 04/19/2019 04:16:27 (Electronically Signed)
[2019-04-19] MEDS ORDERED: HYDROmorphone 1 MG/ML Syringe IVPUSH ONE (04:39)
== END 2019-04-19 07:14 | disposition home or self-care (01) ==
LOC: JP.ED 03:04
DX: N20.2 Calculus of kidney with calculus of ureter (principal); F17.210 Nicotine dependence, cigarettes, uncomplicated; K21.9 Gastro-esophageal reflux disease without esophagitis; Z79.899 Other long term (current) drug therapy; Z88.0 Allergy status to penicillin; Z88.8 Allergy status to other drugs, medicaments and biological substances
CPT/HCPCS: 36415; 74176; 80053; 81001; 81025; 85025; 96374; 96375; 99284; J1170; J2405; J3010

== ENCOUNTER 2019-05-30 10:02 | Emergency (ER) | payer MEDICAID ==
[2019-05-30] MEDS ORDERED: Albuterol/Ipratropium 3.0-0.5 MG/3 ML Neb Soln NEB ONE (10:27)
--- NOTE | 2019-05-30 10:33 | EDM.PDOC ---
ED HPI GENERAL MEDICAL PROBLEM - General Chief Complaint: Respiratory Problem Stated Complaint: cough, headache,wheezing Time Seen by Provider: 05/30/19 10:20 Source of Information: Reports: Patient, Old Records, RN History Limitations: Reports: No Limitations - History of Present Illness INITIAL COMMENTS - FREE TEXT/NARRATIVE: 48 yo female NA smoker presents with cough, wheezing and SOB for about 10 days. Is out of one of her breathing meds(has refills) and the other didn't work today. No fever. No or minimal productivity with her cough. Has not been to her provider for this illness. Onset: Gradual Onset Date: 05/20/19 Duration: Day(s):, Getting Worse Location: Reports: Chest Quality: Reports: Other (no pain) Severity: Moderate Improves with: Reports: Medication Worsens with: Reports: Other (smoking) Context: Reports: Other (has known chronic lung dz and still smokes) Associated Symptoms: Reports: Cough, Shortness of Breath. 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 (see below) (albuterol MDI) - Related Data Allergies Allergy/AdvReac Type Severity Reaction Status Date / Time hydromorphone [From Dilaudid] AdvReac Mild Vomiting Verified 04/19/19 05:22 alprazolam [From Xanax] AdvReac Anxiety Verified 04/19/19 03:09 Penicillins AdvReac Diarrhea Verified 04/19/19 03:09 Home Meds: Home Meds Loratadine [Claritin] 10 mg PO DAILY PRN 07/21/17 [History] Omeprazole 40 mg PO DAILY 07/28/18 [History] busPIRone HCl [busPIRone] 30 mg PO BID 07/28/18 [History] Ibuprofen 600 mg PO Q4H PRN 09/25/18 [History] Tiotropium Br/Olodaterol HCl [Stiolto Respimat Inhal [place]] 2 puff INH DAILY 08/07 [History] Citalopram Hydrobromide [Celexa] 20 mg PO DAILY 01/16/19 [History] Montelukast Sodium 10 mg PO BEDTIME 04/19/19 [History] Past Medical History HEENT 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: Impaired Vision Cardiovascular 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: Arrhythmia Other Cardiovascular History: first degree AV block Respiratory 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: Bronchitis, Recurrent, COPD, Other (See Below) Other Respiratory History: fungal pneumonia Gastrointestinal 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: Gastritis, GERD, PUD Genitourinary 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: None 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: Endometrial Ablation, 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 COMMANDER History: labial cyst Musculoskeletal 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: Back Pain, Chronic, Fracture Other Musculoskeletal History: mid level DJD Psychiatric 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: Anxiety, Panic Attack Hematologic 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: Anemia, Blood Transfusion(s), Iron Deficiency - Infectious Disease History Infectious Disease 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: Influenza - Past Surgical History Cardiovascular Surgical 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: None Other Respiratory Surgeries/Procedures: had influenza A in August of 2018 GI Surgical 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: Cholecystectomy, Colonoscopy, EGD Female Surgical 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: Tubal Ligation Musculoskeletal Surgical 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: Other (See Below) Other Musculoskeletal Surgeries/Procedures:: had radiofrequency facet joint denervation lower lumbar Social & Family History - Family History Family Medical History: Noncontributory - Tobacco Use Smoking Status *Q: Heavy Tobacco Smoker Years of Tobacco use: 30 Packs/Tins Daily: 0.5 - Caffeine Use Caffeine Use: Reports: Coffee - Living Situation & Occupation Living situation: Reports: Single Occupation: Unemployed ED ROS GENERAL - Review of Systems Review Of Systems: See Below Constitutional: Reports: No Symptoms HEENT: Reports: Rhinitis (clear) Respiratory: Reports: Shortness of Breath, Wheezing, Cough, Sputum. Denies: Pleuritic Chest Pain Cardiovascular: Reports: No Symptoms Musculoskeletal: Reports: No Symptoms Skin: Reports: No Symptoms Neurological: Reports: No Symptoms ED EXAM, GENERAL - Physical Exam Exam: See Below Exam Limited By: No Limitations General Appearance: Alert, WD/WN, No Apparent Distress Eye Exam: Bilateral Eye: Normal Inspection Ears: Normal External Exam, Normal Canal, Hearing Grossly Normal, Normal TMs Ear Exam: Bilateral Ear: Auricle Normal, Canal Normal, TM normal Nose: Normal Inspection, No Blood Throat/Mouth: Normal Inspection, Normal Lips, Normal Oropharynx, Normal Voice, No Airway Compromise Head: Atraumatic, Normocephalic Neck: Normal Inspection Respiratory/Chest: No Respiratory Distress, No Accessory Muscle Use, Wheezing. No: Lungs Clear, Normal Breath Sounds Cardiovascular: Regular Rate, Rhythm, No Edema Back Exam: Normal Inspection Extremities: Normal Inspection, Normal Range of Motion, Non-Tender, No Pedal Edema Neurological: Alert, Oriented, CN II-XII Intact, Normal Cognition, No Motor/ Sensory Deficits Psychiatric: Normal Affect, Normal Mood Skin Exam: Warm, Dry, Intact, Normal Color, No Rash Course - Vital Signs Last Recorded V/S: Last Vital Signs Temp 36 C 05/30/19 10:24 Pulse 80 05/30/19 10:24 Resp 17 05/30/19 10:24 BP 157/87 H 05/30/19 10:24 Pulse Ox 96 05/30/19 10:24 - Orders/Labs/Meds Orders: Active Orders 24 hr Category Date Time Status RT Aerosol Therapy [RC] ASDIRECTED Care 05/30/19 10:27 Ordered Albuterol/Ipratropium [DuoNeb 3.0-0.5 MG/3 ML] Med 05/30/19 10:27 Once 3 ml NEB ONETIME ONE Departure - Departure Time of Disposition: 10:45 Disposition: Home, Self-Care 01 Condition: Fair Clinical Impression: Bronchospasm, Tobacco abuse disorder - Discharge Information *PRESCRIPTION DRUG MONITORING PROGRAM REVIEWED*: No *COPY OF PRESCRIPTION DRUG MONITORING REPORT IN PATIENT ALMAZ: No Instructions: Bronchospasm, Adult, [id number] Referrals: Estela Stovall NP [Primary Care Provider] - Additional Instructions: No smoking. Take the prednisone as directed. Get your other inhaler prescription refilled and resume as soon as possible. F/U with your provider later this week. - My Orders Last 24 Hours: My Active Orders 05/30/19 10:27 RT Aerosol Therapy [RC] ASDIRECTED Albuterol/Ipratropium [DuoNeb 3.0-0.5 MG/3 ML] 3 ml NEB ONETIME ONE - Assessment/Plan Last 24 Hours: My Active Orders 05/30/19 10:27 RT Aerosol Therapy [RC] ASDIRECTED Albuterol/Ipratropium [DuoNeb 3.0-0.5 MG/3 ML] 3 ml NEB ONETIME ONE
[2019-05-30 10:38] VITALS: BP 157/87; PULSE 80
== END 2019-05-30 10:44 | disposition home or self-care (01) ==
LOC: JP.ED 10:02
DX: J98.01 Acute bronchospasm (principal); K21.9 Gastro-esophageal reflux disease without esophagitis; F41.9 Anxiety disorder, unspecified; F17.210 Nicotine dependence, cigarettes, uncomplicated; Z88.0 Allergy status to penicillin; Z88.8 Allergy status to other drugs, medicaments and biological substances; Z88.5 Allergy status to narcotic agent; Z79.899 Other long term (current) drug therapy
CPT/HCPCS: 94640; 99283; 99284-25; J7620-GY

== ENCOUNTER 2019-06-30 20:06 | Emergency (ER) | payer MEDICAID ==
[2019-06-30] MEDS ORDERED: Ketorolac 30 MG/ML SDV IVPUSH ONE (20:51)
[2019-06-30 20:53] VITALS: BP 166/94; PULSE 75
--- NOTE | 2019-06-30 20:57 | EDM.PDOC ---
ED HPI GENERAL MEDICAL PROBLEM - General Chief Complaint: Headache Stated Complaint: MEDICAL VIA [facility] Time Seen by Provider: 06/30/19 20:26 Source of Information: Reports: Patient History Limitations: Reports: No Limitations - History of Present Illness INITIAL COMMENTS - FREE TEXT/NARRATIVE: chief complaint: headache along left jaw/ear area and chills This is a 48 year old female present to ER via EMS, reports was at home watching TV when had a sudden onset of head pain, chills and right side of body felt funny. She became worried and called the ambulance. She reports she is taking medication as prescribed. She was seen yesterday in the ER for headache, had CBC, CMP, UA, CT Head without contrast, all labs and imaging are normal. she was given medication and symptoms resolved and she was discharge to home with metoprolol, zofran and norco. she was advised to follow up in Primary Care but has not contacted the clinic for appointment. 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 Headache Pain Score (Numeric/FACES): 7 - Related Data Allergies Allergy/AdvReac Type Severity Reaction Status Date / Time hydromorphone [From Dilaudid] AdvReac Mild Vomiting Verified 06/30/19 20:21 alprazolam [From Xanax] AdvReac Anxiety Verified 06/30/19 20:21 Penicillins AdvReac Diarrhea Verified 06/30/19 20:21 Home Meds: Home Meds Loratadine [Claritin] 10 mg PO DAILY PRN 07/21/17 [History] Omeprazole 40 mg PO DAILY 07/28/18 [History] busPIRone HCl [busPIRone] 30 mg PO BID 07/28/18 [History] Ibuprofen 600 mg PO Q4H PRN 09/25/18 [History] Tiotropium Br/Olodaterol HCl [Stiolto Respimat Inhal [place]] 2 puff INH DAILY 08/07 [History] Citalopram Hydrobromide [Celexa] 20 mg PO DAILY 01/16/19 [History] Montelukast Sodium 10 mg PO BEDTIME 04/19/19 [History] Metoprolol Succinate [Toprol XL] 25 mg PO DAILY 06/30/19 [History] Past Medical History HEENT 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: Impaired Vision Cardiovascular 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: Arrhythmia, Other (See Below) Other Cardiovascular History: first degree AV block Respiratory 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: Bronchitis, Recurrent, COPD, Other (See Below) Other Respiratory History: fungal pneumonia Gastrointestinal 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: Gastritis, GERD, PUD Genitourinary 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: None 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: Endometrial Ablation, Other 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: labial cyst Musculoskeletal 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: Back Pain, Chronic, Fracture Other Musculoskeletal History: mid level DJD Psychiatric 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: Anxiety, Panic Attack Hematologic 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: Anemia, Blood Transfusion(s), Iron Deficiency - Infectious Disease History Infectious Disease 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: Influenza - Past Surgical History Head Surgeries/Procedures: Reports: None HEENT Surgical 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: None Cardiovascular Surgical 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: None Respiratory Surgical 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: Other (See Below) Other Respiratory Surgeries/Procedures: had influenza A in August of 2018 GI Surgical 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: Cholecystectomy, Colonoscopy, EGD, Hernia, Abdominal Female Surgical 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: Tubal Ligation Musculoskeletal Surgical 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: Other (See Below) Other Musculoskeletal Surgeries/Procedures:: had radiofrequency facet joint denervation lower lumbar Social & Family History - Family History Family Medical History: Noncontributory - Caffeine Use Caffeine Use: Reports: Coffee - Living Situation & Occupation Living situation: Reports: Single Occupation: Unemployed ED ROS GENERAL - Review of Systems Review Of Systems: See Below Constitutional: Reports: Chills, Malaise, Other (right sided headache) HEENT: Reports: Other (right jaw and ear pain) Respiratory: Reports: No Symptoms Cardiovascular: Reports: No Symptoms Endocrine: Reports: No Symptoms GI/Abdominal: Reports: No Symptoms : Reports: No Symptoms Musculoskeletal: Reports: No Symptoms Skin: Reports: No Symptoms Neurological: Reports: Headache Psychiatric: Reports: Anxiety Hematologic/Lymphatic: Reports: No Symptoms Immunologic: Reports: No Symptoms ED EXAM, GENERAL - Physical Exam Exam: See Below Exam Limited By: No Limitations General Appearance: Alert, WD/WN, Anxious Eye Exam: Bilateral Eye: EOMI, Normal Inspection, PERRL Ears: Normal External Exam, Normal Canal, Hearing Grossly Normal, Normal TMs Ear Exam: Bilateral Ear: Auricle Normal, Canal Normal, TM normal Nose: Normal Inspection, Normal Mucosa, No Blood Throat/Mouth: Normal Inspection, Normal Lips, Normal Teeth, Normal Gums, Normal Oropharynx, Normal Voice, No Airway Compromise Head: Atraumatic, Normocephalic Neck: Normal Inspection, Supple, Non-Tender, Full Range of Motion Respiratory/Chest: No Respiratory Distress, Lungs Clear, Normal Breath Sounds, No Accessory Muscle Use, Chest Non-Tender Cardiovascular: Normal Peripheral Pulses, Regular Rate, Rhythm, No Edema, No Gallop, No JVD, No Murmur, No Rub GI/Abdominal: Normal Bowel Sounds (Female) Exam: Deferred Rectal (Female) Exam: Deferred Back Exam: Normal Inspection, Full Range of Motion, NT Extremities: Normal Inspection, Normal Range of Motion, Non-Tender, Normal Capillary Refill, No Pedal Edema Neurological: Alert, Oriented, CN II-XII Intact, Normal Cognition, Normal Gait, Normal Reflexes, No Motor/Sensory Deficits Psychiatric: Anxious, Tearful Skin Exam: Warm, Dry, Intact, Normal Color, No Rash Lymphatic: No Adenopathy Course - Vital Signs Last Recorded V/S: Last Vital Signs Temp 36.2 C 06/30/19 20:26 Pulse 75 06/30/19 20:31 Resp 16 06/30/19 20:26 BP 166/94 H 06/30/19 20:31 Pulse Ox 97 06/30/19 20:31 - Orders/Labs/Meds Orders: Active Orders 24 hr Category Date Time Status CULTURE STREP A CONFIRMATION [] Stat Lab 06/30/19 20:42 Results STREP SCRN A RAPID W CULT CONF [] Stat Lab 06/30/19 20:42 Results Sodium Chloride 0.9% [Normal Saline] 1,000 ml Med 06/30/19 21:00 Active IV ASDIRECTED Medication Orders Sodium Chloride (Normal Saline) 1,000 mls @ 999 mls/hr IV ASDIRECTED ARIEL Last Admin: 06/30/19 21:26 Dose: 999 mls/hr Labs: Laboratory Tests 06/30/19 06/30/19 06/30/19 Range/Units 20:41 20:41 20:58 WBC 5.6 (4.5-11.0) K/uL RBC 4.77 (3.30-5.50) M/uL Hgb 12.3 (12.0-15.0) g/dL Hct 38.5 (36.0-48.0) % MCV 81 (80-98) fL MCH 26 L (27-31) pg MCHC 32 (32-36) % Plt Count 249 (150-400) K/uL Neut % (Auto) 58 (36-66) % Lymph % (Auto) 28 (24-44) % [place] % (Auto) 8 H (2-6) % Eos % (Auto) 7 H (2-4) % Baso % (Auto) 1 (0-1) % Sodium 139 L (140-148) mmol/L Potassium 3.9 (3.6-5.2) mmol/L Chloride 105 (100-108) mmol/L Carbon Dioxide 26 (21-32) mmol/L Anion Gap 11.9 (5.0-14.0) mmol/L BUN 21 H (7-18) mg/dL Creatinine 0.8 (0.6-1.0) mg/dL Est Cr Clr Drug Dosing 83.63 mL/min Estimated GFR (MDRD) > 60 (>60) Glucose 146 H (74-106) mg/dL Calcium 8.1 L (8.5-10.1) mg/dL Troponin I < 0.017 (0.000-0.056) ng/mL Urine Color (YELLOW) Urine Appearance (CLEAR) Urine pH (5.0-8.0) Ur Specific [place] (1.008-1.030) Urine Protein (NEGATIVE) mg/dL Urine Glucose (UA) (NEGATIVE) mg/dL Urine Ketones (NEGATIVE) mg/dL Urine Occult Blood (NEGATIVE) Urine Nitrite (NEGATIVE) Urine Bilirubin (NEGATIVE) Urine Urobilinogen (0.2-1.0) EU/dL Ur Leukocyte Esterase (NEGATIVE) Urine RBC (0-5) Urine WBC (0-5) Ur Epithelial Cells Amorphous Sediment Urine Bacteria Urine Mucus 06/30/19 Range/Units 22:02 WBC (4.5-11.0) K/uL RBC (3.30-5.50) M/uL Hgb (12.0-15.0) g/dL Hct (36.0-48.0) % MCV (80-98) fL MCH (27-31) pg MCHC (32-36) % Plt Count (150-400) K/uL Neut % (Auto) (36-66) % Lymph % (Auto) (24-44) % [place] % (Auto) (2-6) % Eos % (Auto) (2-4) % Baso % (Auto) (0-1) % Sodium (140-148) mmol/L Potassium (3.6-5.2) mmol/L Chloride (100-108) mmol/L Carbon Dioxide (21-32) mmol/L Anion Gap (5.0-14.0) mmol/L BUN (7-18) mg/dL Creatinine (0.6-1.0) mg/dL Est Cr Clr Drug Dosing mL/min Estimated GFR (MDRD) (>60) Glucose (74-106) mg/dL Calcium (8.5-10.1) mg/dL Troponin I (0.000-0.056) ng/mL Urine Color Yellow (YELLOW) Urine Appearance Clear (CLEAR) Urine pH 6.0 (5.0-8.0) Ur Specific [place] >= 1.030 (1.008-1.030) Urine Protein 30 H (NEGATIVE) mg/dL Urine Glucose (UA) Negative (NEGATIVE) mg/dL Urine Ketones Negative (NEGATIVE) mg/dL Urine Occult Blood Negative (NEGATIVE) Urine Nitrite Negative (NEGATIVE) Urine Bilirubin Negative (NEGATIVE) Urine Urobilinogen 0.2 (0.2-1.0) EU/dL Ur Leukocyte Esterase Negative (NEGATIVE) Urine RBC 0-5 (0-5) Urine WBC 0-5 (0-5) Ur Epithelial Cells Few Amorphous Sediment Few Urine Bacteria Not seen Urine Mucus Not seen Meds: Medications Generic Name Dose Route Start Last Admin Trade Name Freq PRN Reason Stop Dose Admin Sodium Chloride 1,000 mls @ 999 mls/hr 06/30/19 21:00 06/30/19 21:26 Normal Saline IV 999 mls/hr ASDIRECTED ARIEL Administration Discontinued Medications Generic Name Dose Route Start Last Admin Trade Name Freq PRN Reason Stop Dose Admin Ketorolac Tromethamine 30 mg 06/30/19 20:51 06/30/19 21:26 Toradol IVPUSH 06/30/19 20:52 30 mg ONETIME ONE Administration - Re-Assessments/Exams Free Text/Narrative Re-Assessment/Exam: 06/30/19 21:00 discussed headaches will do labs and chest x-ray to rule out any changes medications -Toradol 30 mg IV -IV fluids Normal Saline 1 liter at 999ml/hr. Malissa agrees with plan of care. 06/30/19 21:50 chest xray is negative, no acute pulmonary process reviewed results with Malissa. still awaiting urine 06/30/19 22:29 urine negative spec. gravity >1.030 06/30/19 22:30 will discharge to home. Departure - Departure Time of Disposition: 22:32 Disposition: Home, Self-Care 01 Condition: Good Clinical Impression: Tension-type headache Headache Qualifiers: Headache type: tension-type Headache chronicity pattern: acute headache Intractability: not intractable Qualified Code(s): G44.209 - Tension-type headache, unspecified, not intractable - Discharge Information *PRESCRIPTION DRUG MONITORING PROGRAM REVIEWED*: Not Applicable *COPY OF PRESCRIPTION DRUG MONITORING REPORT IN PATIENT ALMAZ: Not Applicable Instructions: General Headache Without Cause Referrals: PCP,None [Primary Care Provider] - Forms: ED Department Discharge Care Plan Goals: Headache -all labs and xray are negative for acute illness -IV fluids and medication given in ER -rest -push fluids, drink at least 8 glasses of water per day -take home medications as prescribed -follow up in Primary Care for recheck Return to ER if not improved or symptoms worsen. - Problem List & Annotations (1) Headache SNOMED Code(s): 17063620 Code(s): R51 - HEADACHE Status: Acute Priority: High Current Visit: Yes Qualifiers: Headache type: tension-type Headache chronicity pattern: acute headache Intractability: not intractable Qualified Code(s): G44.209 - Tension-type headache, unspecified, not intractable - Problem List Review Problem List Initiated/Reviewed/Updated: Yes - My Orders Last 24 Hours: My Active Orders 06/30/19 20:42 CULTURE STREP A CONFIRMATION [RM] Stat STREP SCRN A RAPID W CULT CONF [RM] Stat 06/30/19 21:00 Sodium Chloride 0.9% [Normal Saline] 1,000 ml IV ASDIRECTED - Assessment/Plan Last 24 Hours: My Active Orders 06/30/19 20:42 CULTURE STREP A CONFIRMATION [RM] Stat STREP SCRN A RAPID W CULT CONF [RM] Stat 06/30/19 21:00 Sodium Chloride 0.9% [Normal Saline] 1,000 ml IV ASDIRECTED Plan: Headache -all labs and xray are negative for acute illness -IV fluids and medication given in ER -rest -push fluids, drink at least 8 glasses of water per day -take home medications as prescribed -follow up in Primary Care for recheck Return to ER if not improved or symptoms worsen.
[2019-06-30] MEDS ORDERED: Sodium Chloride 0.9% 1,000 ML IV SCH (21:00)
--- NOTE | 2019-06-30 21:27 | CRLCR ---
INDICATION: Chills TECHNIQUE: Chest 2 views. COMPARISON: Chest radiograph 09/28/2018, 09/25/2018 FINDINGS: Cardiomediastinal silhouette: Within normal limits. Lungs and pleural spaces: No focal consolidation. Linear subsegmental atelectasis/scarring projecting over the right midlung zone. No pleural effusion or pneumothorax. Bones and soft tissues: Within normal limits. IMPRESSION: No acute pulmonary process. Dictated by Jolynn Milton MD @ 06/30/2019 9:26:12 PM Dictated by: Jolynn Milton MD @ 06/30/2019 21:26:19 (Electronically Signed)
== END 2019-06-30 22:42 | disposition home or self-care (01) ==
LOC: JP.ED 20:06
DX: G44.209 Tension-type headache, unspecified, not intractable (principal); J44.9 Chronic obstructive pulmonary disease, unspecified; K21.9 Gastro-esophageal reflux disease without esophagitis; F41.0 Panic disorder [episodic paroxysmal anxiety]; Z86.2 Personal history of diseases of the blood and blood-forming organs and certain disorders involving the immune mechanism; Z88.0 Allergy status to penicillin; Z88.5 Allergy status to narcotic agent; Z88.8 Allergy status to other drugs, medicaments and biological substances; Z79.899 Other long term (current) drug therapy
CPT/HCPCS: 36415; 71046; 80048; 81001; 84484; 85025; 87081; 87880; 96361; 96374; 99284; J1885; J7030

== ENCOUNTER 2019-08-30 14:13 | Emergency (ER) | payer MEDICAID ==
[2019-08-30 14:35] VITALS: BP 161/87; PULSE 88
--- NOTE | 2019-08-30 15:04 | EDM.PDOC ---
ED HPI GENERAL MEDICAL PROBLEM - General Chief Complaint: Respiratory Problem Stated Complaint: COPD, COUGHING, & HEADACHE Time Seen by Provider: 08/30/19 14:45 Source of Information: Reports: Patient History Limitations: Reports: No Limitations - History of Present Illness INITIAL COMMENTS - FREE TEXT/NARRATIVE: 48-year-old with history of COPD and pulmonary blastomycosis presents with concerns of cough. She reports symptoms of been ongoing for about 2 weeks. The cough is keeping her up at night. She does feel like she has some sinus drainage. She has also noticed some increase in heartburn symptoms when laying in bed at night. She denies any dyspnea. No fevers. Cough has been nonproductive. No increased wheezing. She has tried her albuterol inhaler without any relief. No lower extremity swelling or pain. - Related Data Allergies Allergy/AdvReac Type Severity Reaction Status Date / Time hydromorphone [From Dilaudid] AdvReac Mild Vomiting Verified 08/30/19 14:35 alprazolam [From Xanax] AdvReac Anxiety Verified 08/30/19 14:35 Penicillins AdvReac Diarrhea Verified 08/30/19 14:35 Home Meds: Home Meds Loratadine [Claritin] 10 mg PO DAILY PRN 07/21/17 [History] Omeprazole 40 mg PO DAILY 07/28/18 [History] busPIRone HCl [busPIRone] 30 mg PO BID 07/28/18 [History] Tiotropium Br/Olodaterol HCl [Stiolto Respimat Inhal [place]] 2 puff INH DAILY 08/07 [History] Citalopram Hydrobromide [Celexa] 20 mg PO DAILY 01/16/19 [History] Montelukast Sodium 10 mg PO BEDTIME 04/19/19 [History] Metoprolol Succinate [Toprol XL] 25 mg PO DAILY 06/30/19 [History] Benzonatate [Tessalon Perle] 100 mg PO TID PRN #40 capsule 08/30/19 [Rx] Cholecalciferol (Vitamin D3) [Vitamin D] 5,000 unit PO DAILY 08/30/19 [History] Past Medical History HEENT 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: Impaired Vision Cardiovascular 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: Arrhythmia, Other (See Below) Other Cardiovascular History: first degree AV block Respiratory 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: Bronchitis, Recurrent, COPD, Other (See Below) Other Respiratory History: fungal pneumonia Gastrointestinal 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: Gastritis, GERD, PUD Genitourinary 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: None TRANSLATOR DEAF 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: Endometrial Ablation, Other TRANSLATOR DEAF History: labial cyst Musculoskeletal 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: Back Pain, Chronic, Fracture Other Musculoskeletal History: mid level DJD Psychiatric 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: Anxiety, Panic Attack Hematologic 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: Anemia, Blood Transfusion(s), Iron Deficiency - Infectious Disease History Infectious Disease History: Reports: Influenza - Past Surgical History Head Surgeries/Procedures: Reports: None HEENT Surgical History: Reports: None Cardiovascular Surgical History: Reports: None Respiratory Surgical History: Reports: Other (See Below) Other Respiratory Surgeries/Procedures: had influenza A in August of 2018 GI Surgical History: Reports: Cholecystectomy, Colonoscopy, EGD, Hernia, Abdominal Female Surgical History: Reports: Tubal Ligation Musculoskeletal Surgical History: Reports: Other (See Below) Other Musculoskeletal Surgeries/Procedures:: had radiofrequency facet joint denervation lower lumbar Social & Family History - Family History Family Medical History: Noncontributory - Tobacco Use Smoking Status *Q: Current Every Day Smoker Years of Tobacco use: 20 Packs/Tins Daily: 0.4 - Caffeine Use Caffeine Use: Reports: Coffee, Soda - Recreational Drug Use Recreational Drug Use: No - Living Situation & Occupation Living situation: Reports: Single Occupation: Unemployed ED ROS GENERAL - Review of Systems Review Of Systems: See Below Constitutional: Reports: No Symptoms HEENT: Reports: No Symptoms Respiratory: Reports: Cough Cardiovascular: Reports: No Symptoms Endocrine: Reports: No Symptoms GI/Abdominal: Reports: No Symptoms : Reports: No Symptoms Musculoskeletal: Reports: No Symptoms Skin: Reports: No Symptoms Neurological: Reports: No Symptoms Psychiatric: Reports: No Symptoms Hematologic/Lymphatic: Reports: No Symptoms Immunologic: Reports: No Symptoms ED EXAM, GENERAL - Physical Exam Exam: See Below Exam Limited By: No Limitations General Appearance: Alert, No Apparent Distress Ears: Normal External Exam Nose: Normal Inspection Throat/Mouth: Normal Inspection Head: Atraumatic, Normocephalic Neck: Normal Inspection Respiratory/Chest: No Respiratory Distress, Crackles (crackles at bases bilaterally). No: Wheezing Cardiovascular: Regular Rate, Rhythm GI/Abdominal: Soft, Non-Tender (Female) Exam: Normal External Exam Rectal (Female) Exam: Normal Exam Back Exam: Normal Inspection Extremities: Normal Inspection Neurological: Alert, Oriented Psychiatric: Normal Affect, Normal Mood Skin Exam: Warm, Dry Course - Vital Signs Last Recorded V/S: Last Vital Signs Temp 36.3 C 08/30/19 14:33 Pulse 88 08/30/19 14:33 Resp 18 08/30/19 14:33 BP 161/87 H 08/30/19 14:33 Pulse Ox 98 08/30/19 14:33 - Re-Assessments/Exams Free Text/Narrative Re-Assessment/Exam: 48-year-old with history of COPD, pulmonary blastomycosis presents with cough. On exam has normal vitals, sating well on room air. No wheezing. Does endorse some nasal congestion, as well as increased GERD symptoms - perhaps etiology of worsening symptoms recently. No evidence of COPD exacerbation. Discussed symptomatic treatments, patient is going to try Tessalon Perles and also double her daily PPI for a bit to see if she gets any relief. She was encouraged to establish a PCP for follow-up 08/30/19 15:07 Departure - Departure Time of Disposition: 15:02 Disposition: Home, Self-Care 01 Clinical Impression: Cough - Discharge Information *PRESCRIPTION DRUG MONITORING PROGRAM REVIEWED*: No *COPY OF PRESCRIPTION DRUG MONITORING REPORT IN PATIENT ALMAZ: No Prescriptions: Benzonatate [Tessalon Perle] 100 mg PO TID PRN #40 capsule PRN Reason: Cough Instructions: Cough, Adult, [id number] Referrals: PCP,None [Primary Care Provider] - Forms: ED Department Discharge Additional Instructions: Please take the prescribed medication as needed for your cough. You should also consider a trial of doubling your omeprazole. Please establish care with a primary doctor for follow-up. Return to the ER if you develop shortness of breath or fever.
== END 2019-08-30 15:21 | disposition home or self-care (01) ==
LOC: JP.ED 14:13
DX: R05 Cough (principal); F17.210 Nicotine dependence, cigarettes, uncomplicated; K21.9 Gastro-esophageal reflux disease without esophagitis; F41.9 Anxiety disorder, unspecified; D64.9 Anemia, unspecified; Z79.899 Other long term (current) drug therapy; Z88.0 Allergy status to penicillin; Z88.8 Allergy status to other drugs, medicaments and biological substances
CPT/HCPCS: 99283

== ENCOUNTER 2019-09-15 19:41 | Emergency (ER) | payer MEDICAID ==
[2019-09-15 20:00] VITALS: BP 150/72; PULSE 83
[2019-09-15] MEDS ORDERED: methylPREDNISolone Sodium Succinate 40 MG/1 ML SDV IM ONE (20:11)
--- NOTE | 2019-09-15 20:14 | EDM.PDOC ---
ED HPI GENERAL MEDICAL PROBLEM - General Chief Complaint: Respiratory Problem Stated Complaint: COPD/SOB Time Seen by Provider: 09/15/19 20:06 Source of Information: Reports: Patient, Old Records, RN Notes Reviewed History Limitations: Reports: No Limitations - History of Present Illness INITIAL COMMENTS - FREE TEXT/NARRATIVE: 48-year-old female presents emergency department today complaint of cough and shortness of breath, she has known history of COPD is trying to quit smoking at this time states she is been dealing with this cough for about 2 weeks did do a trial of Tessalon Perles without much relief she uses her albuterol inhaler about 5 times per day no fever Headache Pain Score (Numeric/FACES): 6 - Related Data Allergies Allergy/AdvReac Type Severity Reaction Status Date / Time hydromorphone [From Dilaudid] AdvReac Mild Vomiting Verified 09/15/19 20:03 alprazolam [From Xanax] AdvReac Anxiety Verified 09/15/19 20:03 Penicillins AdvReac Diarrhea Verified 09/15/19 20:03 Home Meds: Home Meds Loratadine [Claritin] 10 mg PO DAILY PRN 07/21/17 [History] Omeprazole 40 mg PO DAILY 07/28/18 [History] busPIRone HCl [busPIRone] 30 mg PO BID 07/28/18 [History] Tiotropium Br/Olodaterol HCl [Stiolto Respimat Inhal [place]] 2 puff INH DAILY 08/07 [History] Citalopram Hydrobromide [Celexa] 20 mg PO DAILY 01/16/19 [History] Montelukast Sodium 10 mg PO BEDTIME 04/19/19 [History] Metoprolol Succinate [Toprol XL] 25 mg PO DAILY 06/30/19 [History] Cholecalciferol (Vitamin D3) [Vitamin D] 5,000 unit PO DAILY 08/30/19 [History] Past Medical History HEENT History: Reports: Impaired Vision Cardiovascular History: Reports: Arrhythmia, Hypertension, Other (See Below) Other Cardiovascular History: first degree AV block Respiratory History: Reports: Asthma, Bronchitis, Recurrent, COPD, Other (See Below) Other Respiratory History: fungal pneumonia Gastrointestinal History: Reports: Gastritis, GERD, PUD Genitourinary History: Reports: None 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: Reports: Endometrial Ablation, Other 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: labial cyst Musculoskeletal History: Reports: Back Pain, Chronic, Fracture Other Musculoskeletal History: mid level DJD Psychiatric History: Reports: Anxiety, Panic Attack Hematologic History: Reports: Anemia, Blood Transfusion(s), Iron Deficiency - Infectious Disease History Infectious Disease History: Reports: C-Difficile, Influenza - Past Surgical History Head Surgeries/Procedures: Reports: None HEENT Surgical History: Reports: None Cardiovascular Surgical History: Reports: None Respiratory Surgical History: Reports: Other (See Below) Other Respiratory Surgeries/Procedures: had influenza A in August of 2018 GI Surgical History: Reports: Cholecystectomy, Colonoscopy, EGD, Hernia, Abdominal Female Surgical History: Reports: Tubal Ligation Musculoskeletal Surgical History: Reports: Other (See Below) Other Musculoskeletal Surgeries/Procedures:: had radiofrequency facet joint denervation lower lumbar Social & Family History - Family History Family Medical History: Noncontributory - Tobacco Use Smoking Status *Q: Current Every Day Smoker Years of Tobacco use: 20 Packs/Tins Daily: 0.5 Tobacco Use Comment: started nicotine patch today - Caffeine Use Caffeine Use: Reports: Coffee, Soda - Recreational Drug Use Recreational Drug Use: No - Living Situation & Occupation Living situation: Reports: Single Occupation: Unemployed ED ROS GENERAL - Review of Systems Review Of Systems: See Below Constitutional: Reports: No Symptoms HEENT: Reports: No Symptoms Respiratory: Reports: Shortness of Breath, Wheezing, Cough, Sputum Cardiovascular: Reports: Dyspnea on Exertion GI/Abdominal: Reports: No Symptoms ED EXAM, GENERAL - Physical Exam Exam: See Below Exam Limited By: No Limitations General Appearance: Alert, WD/WN, No Apparent Distress Throat/Mouth: No Airway Compromise Neck: Normal Inspection, Supple, Non-Tender, Full Range of Motion Respiratory/Chest: No Respiratory Distress, No Accessory Muscle Use, Decreased Breath Sounds, Wheezing Cardiovascular: Regular Rate, Rhythm, No Murmur Course - Vital Signs Last Recorded V/S: Last Vital Signs Temp 98.3 F 09/15/19 20:02 Pulse 83 09/15/19 20:02 Resp 14 09/15/19 20:02 BP 150/72 H 09/15/19 20:02 Pulse Ox 96 09/15/19 20:02 - Orders/Labs/Meds Orders: Active Orders 24 hr Category Date Time Status methylPREDNISolone Sod Succ [Solu-MEDROL] Med 09/15/19 20:11 Once 40 mg IM ONETIME ONE Departure - Departure Time of Disposition: 20:14 Disposition: Home, Self-Care 01 Condition: Fair Clinical Impression: COPD with acute bronchitis - Discharge Information Instructions: Chronic Bronchitis Referrals: PCP,None [Primary Care Provider] - Additional Instructions: Take full course of antibiotics, please followup with your primary care provider in 3-5 days if not better, please call return to the emergency department with worsening of symptoms. - My Orders Last 24 Hours: My Active Orders 09/15/19 20:11 methylPREDNISolone Sod Succ [Solu-MEDROL] 40 mg IM ONETIME ONE - Assessment/Plan Last 24 Hours: My Active Orders 09/15/19 20:11 methylPREDNISolone Sod Succ [Solu-MEDROL] 40 mg IM ONETIME ONE Plan: Assessment Acuity = acute Site and laterality = COPD bronchitis Etiology = unclear Manifestations = cough, wheezing Location of injury = Home Lab values = none Plan Because she has been ill for 2 weeks to empiric trial of azithromycin (z pack), she was given 40 mg Solu-Medrol IM x1 in the emergency department, have her follow-up with her primary care in 3 to 5 days for reevaluation This note was dictated using [employer] voice recognition software please call with any questions on syntax or grammar.
== END 2019-09-15 20:25 | disposition home or self-care (01) ==
LOC: JP.ED 19:41
DX: J44.0 Chronic obstructive pulmonary disease with (acute) lower respiratory infection (principal); J20.9 Acute bronchitis, unspecified; I10 Essential (primary) hypertension; J44.9 Chronic obstructive pulmonary disease, unspecified; K21.9 Gastro-esophageal reflux disease without esophagitis; F17.210 Nicotine dependence, cigarettes, uncomplicated; Z88.8 Allergy status to other drugs, medicaments and biological substances; Z79.899 Other long term (current) drug therapy
CPT/HCPCS: 96372; 99284; J2920

== ENCOUNTER 2019-09-26 10:04 | Observation (INO) | payer MEDICAID ==
[2019-09-26] MEDS ORDERED: Nitroglycerin 0.4 MG Tab.SL SL PRN (10:15)
[2019-09-26] MEDS ORDERED: Aspirin 81 MG Tab.Chew PO ONE (10:15)
--- NOTE | 2019-09-26 10:18 | EDM.PDOC ---
ED HPI GENERAL MEDICAL PROBLEM - General Chief Complaint: Chest Pain Stated Complaint: MEDICAL [facility] [place] Time Seen by Provider: 09/26/19 10:18 Source of Information: Reports: Patient History Limitations: Reports: No Limitations - History of Present Illness INITIAL COMMENTS - FREE TEXT/NARRATIVE: 48 years old female patient presented to the ER by ambulance with a chief complaint of chest pain, squeezing and burning-like feeling slightly to the left , radiated to her left arm. Associated with nausea and diaphoresis. Mild dry chronic cough because of history of COPD. She still smokes. Pain is nonpleuritic or positional. Denies any shortness breath. Denies any leg pain or swelling. Denies any fever. Was given 3 nitroglycerin helped her pain initially but now pain is coming back. Was also given aspirin by EMS. Chest Pain Score (Numeric/FACES): 8 - Related Data Allergies Allergy/AdvReac Type Severity Reaction Status Date / Time alprazolam [From Xanax] AdvReac Anxiety Verified 09/26/19 10:19 Penicillins AdvReac Diarrhea Verified 09/26/19 10:19 Home Meds: Home Meds Loratadine [Claritin] 10 mg PO DAILY PRN 07/21/17 [History] Omeprazole 40 mg PO DAILY 07/28/18 [History] busPIRone HCl [busPIRone] 30 mg PO BID 07/28/18 [History] Tiotropium Br/Olodaterol HCl [Stiolto Respimat Inhal [place]] 2 puff INH DAILY 08/07 [History] Citalopram Hydrobromide [Celexa] 20 mg PO DAILY 01/16/19 [History] Metoprolol Succinate [Toprol XL] 25 mg PO DAILY 06/30/19 [History] Past Medical History HEENT History: Reports: Impaired Vision Cardiovascular History: Reports: Arrhythmia, Hypertension, Other (See Below) Other Cardiovascular History: first degree AV block Respiratory History: Reports: Asthma, Bronchitis, Recurrent, COPD, Other (See Below) Other Respiratory History: fungal pneumonia Gastrointestinal History: Reports: Gastritis, GERD, PUD Genitourinary History: Reports: None 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: Endometrial Ablation, 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 TANK TRUCK 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 History: labial cyst Musculoskeletal History: Reports: Back Pain, Chronic, Fracture Other Musculoskeletal History: mid level DJD Psychiatric History: Reports: Anxiety, Panic Attack Hematologic History: Reports: Anemia, Blood Transfusion(s), Iron Deficiency - Infectious Disease History Infectious Disease History: Reports: C-Difficile, Influenza - Past Surgical History Head Surgeries/Procedures: Reports: None HEENT Surgical History: Reports: None Cardiovascular Surgical History: Reports: None Respiratory Surgical History: Reports: Other (See Below) Other Respiratory Surgeries/Procedures: had influenza A in August of 2018 GI Surgical History: Reports: Cholecystectomy, Colonoscopy, EGD, Hernia, Abdominal Female Surgical History: Reports: Tubal Ligation Musculoskeletal Surgical History: Reports: Other (See Below) Other Musculoskeletal Surgeries/Procedures:: had radiofrequency facet joint denervation lower lumbar Social & Family History - Family History Family Medical History: Noncontributory - Caffeine Use Caffeine Use: Reports: Coffee, Soda - Living Situation & Occupation Living situation: Reports: Single Occupation: Unemployed ED ROS GENERAL - Review of Systems Review Of Systems: Comprehensive ROS is negative, except as noted in HPI. ED EXAM, GENERAL - Physical Exam Exam: See Below Exam Limited By: No Limitations General Appearance: Alert, WD/WN, No Apparent Distress Ears: Normal External Exam, Normal Canal, Hearing Grossly Normal, Normal TMs Ear Exam: Bilateral Ear: Auricle Normal, Canal Normal, TM normal Nose: Normal Inspection, Normal Mucosa, No Blood Throat/Mouth: Normal Inspection, Normal Lips, Normal Teeth, Normal Gums, Normal Oropharynx, Normal Voice, No Airway Compromise Head: Atraumatic, Normocephalic Neck: Normal Inspection, Supple, Non-Tender, Full Range of Motion Respiratory/Chest: No Respiratory Distress, Lungs Clear, Normal Breath Sounds, No Accessory Muscle Use, Chest Non-Tender Cardiovascular: Normal Peripheral Pulses, Regular Rate, Rhythm, No Edema, No Gallop, No JVD, No Murmur, No Rub GI/Abdominal: Normal Bowel Sounds, Soft, Non-Tender, No Organomegaly, No Distention, No Abnormal Bruit, No Mass Extremities: Normal Inspection, Normal Range of Motion, Non-Tender, Normal Capillary Refill, No Pedal Edema Neurological: Alert, Oriented, CN II-XII Intact, Normal Cognition, Normal Gait, Normal Reflexes, No Motor/Sensory Deficits Psychiatric: Anxious Skin Exam: Warm, Dry, Intact, Normal Color, No Rash Course - Vital Signs Last Recorded V/S: Last Vital Signs Temp 36.8 C 09/26/19 14:53 Pulse 58 L 09/26/19 14:53 Resp 16 09/26/19 14:53 BP 142/89 H 09/26/19 15:22 Pulse Ox 94 L 09/26/19 14:53 - Orders/Labs/Meds Orders: Active Orders 24 hr Category Date Time Status Cardiac Monitoring [RC] .As Directed Care 09/26/19 10:15 Inactive EKG 12 Lead [EK] Stat Ther 09/26/19 10:16 Stop Req Medication Orders Acetaminophen (Tylenol) 650 mg PO Q4H PRN PRN Reason: Pain (Mild 1-3)/fever Albuterol (Proventil Neb Soln) 2.5 mg NEB Q4H PRN PRN Reason: Shortness Of Breath/wheezing Buspirone HCl (Buspar) 30 mg PO BID [facility] Calcium Carbonate/Glycine (Tums) 1,000 mg PO Q2H PRN PRN Reason: Indigestion Citalopram Hydrobromide (Celexa) 20 mg PO DAILY [facility] Glycopyrrolate/Indacaterol (Utibron Neohaler 27.5-15.6 Mcg) 1 each IH BIDRT [facility] Loratadine (Claritin) 10 mg PO DAILY PRN PRN Reason: Allergies Lorazepam (Ativan) 0.5 mg IVPUSH Q4H PRN PRN Reason: Nausea/Vomiting Lorazepam (Ativan) 0.5 mg PO Q4H PRN PRN Reason: Anxiety Magnesium Hydroxide (Milk Of Magnesia) 30 ml PO Q12H PRN PRN Reason: Constipation Melatonin (Melatonin) 9 mg PO BEDTIME PRN PRN Reason: Sleep Metoprolol Succinate (Toprol Xl) 25 mg PO DAILY [facility] Nicotine (Habitrol) 14 mg TRDERM DAILY PRN PRN Reason: nicotine craving Last Admin: 09/26/19 15:25 Dose: 14 mg Ondansetron HCl (Zofran Odt) 4 mg PO Q6H PRN PRN Reason: Nausea able to take PO Ondansetron HCl (Zofran) 4 mg IV Q6H PRN PRN Reason: Nausea/Vomiting Oxycodone HCl (Oxycodone) 5 - 10 mg PO Q4H PRN PRN Reason: Pain Last Admin: 09/26/19 17:37 Dose: 5 mg Pantoprazole Sodium (Protonix) 40 mg PO DAILY@0730 [facility] Senna/Docusate Sodium (Senna Plus) 1 tab PO BID PRN PRN Reason: Constipation Labs: Laboratory Tests 09/26/19 09/26/19 09/26/19 Range/Units 10:26 10:26 10:26 WBC 6.0 (4.5-11.0) K/uL RBC 4.90 (3.30-5.50) M/uL Hgb 12.8 (12.0-15.0) g/dL Hct 40.5 (36.0-48.0) % MCV 83 (80-98) fL MCH 26 L (27-31) pg MCHC 32 (32-36) % Plt Count 249 (150-400) K/uL Neut % (Auto) 59 (36-66) % Lymph % (Auto) 27 (24-44) % Butts % (Auto) 8 H (2-6) % Eos % (Auto) 6 H (2-4) % Baso % (Auto) 1 (0-1) % D-Dimer, Quantitative < 100 (0.0-400.0) ng/mL Sodium 138 L (140-148) mmol/L Potassium 4.1 (3.6-5.2) mmol/L Chloride 102 (100-108) mmol/L Carbon Dioxide 26 (21-32) mmol/L Anion Gap 14.1 H (5.0-14.0) mmol/L BUN 14 (7-18) mg/dL Creatinine 0.8 (0.6-1.0) mg/dL Est Cr Clr Drug Dosing 83.63 mL/min Estimated GFR (MDRD) > 60 (>60) Glucose 100 (74-106) mg/dL Lactic Acid (0.4-2.0) mmol/L Calcium 8.3 L (8.5-10.1) mg/dL Magnesium 1.9 (1.8-2.4) mg/dL Total Bilirubin 0.2 (0.2-1.0) mg/dL AST 19 (15-37) U/L ALT 61 (12-78) U/L Alkaline Phosphatase 112 (46-116) U/L Troponin I < 0.017 (0.000-0.056) ng/mL NT-Pro-B Natriuret Pep 78 (5-125) pg/mL Total Protein 6.9 (6.4-8.2) g/dL Albumin 3.3 L (3.4-5.0) g/dL Globulin 3.6 H (2.3-3.5) g/dL Albumin/Globulin Ratio 0.9 L (1.2-2.2) 09/26/19 09/26/19 Range/Units 10:26 12:30 WBC (4.5-11.0) K/uL RBC (3.30-5.50) M/uL Hgb (12.0-15.0) g/dL Hct (36.0-48.0) % MCV (80-98) fL MCH (27-31) pg MCHC (32-36) % Plt Count (150-400) K/uL Neut % (Auto) (36-66) % Lymph % (Auto) (24-44) % Butts % (Auto) (2-6) % Eos % (Auto) (2-4) % Baso % (Auto) (0-1) % D-Dimer, Quantitative (0.0-400.0) ng/mL Sodium (140-148) mmol/L Potassium (3.6-5.2) mmol/L Chloride (100-108) mmol/L Carbon Dioxide (21-32) mmol/L Anion Gap (5.0-14.0) mmol/L BUN (7-18) mg/dL Creatinine (0.6-1.0) mg/dL Est Cr Clr Drug Dosing mL/min Estimated GFR (MDRD) (>60) Glucose (74-106) mg/dL Lactic Acid 1.4 (0.4-2.0) mmol/L Calcium (8.5-10.1) mg/dL Magnesium (1.8-2.4) mg/dL Total Bilirubin (0.2-1.0) mg/dL AST (15-37) U/L ALT (12-78) U/L Alkaline Phosphatase (46-116) U/L Troponin I < 0.017 (0.000-0.056) ng/mL NT-Pro-B Natriuret Pep (5-125) pg/mL Total Protein (6.4-8.2) g/dL Albumin (3.4-5.0) g/dL Globulin (2.3-3.5) g/dL Albumin/Globulin Ratio (1.2-2.2) Meds: Medications Generic Name Dose Route Start Last Admin Trade Name Freq PRN Reason Stop Dose Admin Acetaminophen 650 mg 09/26/19 14:46 Tylenol PO Q4H PRN Pain (Mild 1-3)/fever Albuterol 2.5 mg 09/26/19 14:46 Proventil Neb Soln NEB Q4H PRN Shortness Of Breath/wheezing Buspirone HCl 30 mg 09/26/19 21:00 Buspar PO BID [facility] Calcium Carbonate/Glycine 1,000 mg 09/26/19 14:46 Tums PO Q2H PRN Indigestion Citalopram Hydrobromide 20 mg 09/27/19 09:00 Celexa PO DAILY [facility] Glycopyrrolate/Indacaterol 1 each 09/27/19 07:00 Utibron Neohaler 27.5-15.6 Mcg IH BIDRT [facility] Loratadine 10 mg 09/26/19 14:46 Claritin PO DAILY PRN Allergies Lorazepam 0.5 mg 09/26/19 14:46 Ativan IVPUSH Q4H PRN Nausea/Vomiting Lorazepam 0.5 mg 09/26/19 14:46 Ativan PO Q4H PRN Anxiety Magnesium Hydroxide 30 ml 09/26/19 14:46 Milk Of Magnesia PO Q12H PRN Constipation Melatonin 9 mg 09/26/19 14:46 Melatonin PO BEDTIME PRN Sleep Metoprolol Succinate 25 mg 09/27/19 09:00 Toprol Xl PO DAILY [facility] Nicotine 14 mg 09/26/19 15:13 09/26/19 15:25 Habitrol TRDERM 14 mg DAILY PRN Administration nicotine craving Ondansetron HCl 4 mg 09/26/19 14:46 Zofran Odt PO Q6H PRN Nausea able to take PO Ondansetron HCl 4 mg 09/26/19 14:46 Zofran IV Q6H PRN Nausea/Vomiting Oxycodone HCl 5 - 10 mg 09/26/19 14:46 09/26/19 17:37 Oxycodone PO 5 mg Q4H PRN Administration Pain Pantoprazole Sodium 40 mg 09/27/19 07:30 Protonix PO DAILY@0730 [facility] Senna/Docusate Sodium 1 tab 09/26/19 14:46 Senna Plus PO BID PRN Constipation Discontinued Medications Generic Name Dose Route Start Last Admin Trade Name [email or web address] PRN Reason Stop Dose Admin Aspirin 324 mg 09/26/19 10:15 09/26/19 10:44 Aspirin PO 09/26/19 10:16 Not Given ONETIME ONE Al Hydroxide/Mg Hydroxide 15 0 ml 09/26/19 13:51 09/26/19 13:58 ml/ Lidocaine HCl 15 ml PO 09/26/19 13:52 30 ml ONETIME ONE Administration Ketorolac Tromethamine 30 mg 09/26/19 11:11 09/26/19 11:32 Toradol IM 09/26/19 11:12 30 mg ONETIME ONE Administration Morphine Sulfate 4 mg 09/26/19 10:28 09/26/19 10:32 Morphine IVPUSH 09/26/19 10:29 4 mg ONETIME ONE Administration Nitroglycerin 0.4 mg 09/26/19 10:15 Nitrostat SL 09/27/19 10:16 Q5M PRN Chest Pain Oxycodone HCl 5 mg 09/26/19 13:51 09/26/19 13:57 Oxycodone PO 09/26/19 13:52 5 mg ONETIME ONE Administration - Re-Assessments/Exams Free Text/Narrative Re-Assessment/Exam: 09/26/19 10:34 Patient was seen and examined shortly after arrival. 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 Given 3 nitroglycerin and aspirin. EMS. Pain is common back. Requesting more pain medication. Was given 4 mg IV morphine. EKG, lab and imaging reviewed with the patient. No significant acute abnormalities. Still rating her pain 7 out of 10. Given 30 mg IV Toradol. Slight improvement but still rating her pain at 6. Repeat troponin to our came back negative. Case was discussed with Dr. Mayer hospitalist configuration management consultant and he accepted admission for cardiac rule out and further management. Patient agrees with the plan. Stable for admission. 09/26/19 19:26 Departure - Departure Time of Disposition: 13:51 Disposition: Admitted As Inpatient 66 Condition: Good Clinical Impression: Chest pain Qualifiers: Chest pain type: unspecified Qualified Code(s): R07.9 - Chest pain, unspecified - My Orders Last 24 Hours: My Active Orders 09/26/19 10:15 Cardiac Monitoring [RC] .As Directed 09/26/19 10:16 EKG 12 Lead [EK] Stat - Assessment/Plan Last 24 Hours: My Active Orders 09/26/19 10:15 Cardiac Monitoring [RC] .As Directed 09/26/19 10:16 EKG 12 Lead [EK] Stat Plan: Admission to Dr. Mayer
[2019-09-26] MEDS ORDERED: Morphine 4 MG/ML Syringe IVPUSH ONE (10:28)
--- NOTE | 2019-09-26 11:04 | CRLCR ---
INDICATION: comparison from 2018Chest pain2 images TECHNIQUE: Chest 2 views. COMPARISON: 06/30/19 FINDINGS: Cardiovascular and mediastinum: Heart size and vasculature are normal in caliber and appearance. Mediastinum is within normal limits. Lungs and pleural spaces: Lungs are clear. No sign of infiltrate or mass. No sign of pleural effusion. No pneumothorax. Bones and soft tissues: No significant findings. IMPRESSION: Unremarkable chest. Dictated by: Dino Villar MD @ 09/26/2019 11:03:19 (Electronically Signed)
[2019-09-26] MEDS ORDERED: Ketorolac 30 MG/ML SDV IM ONE (11:11)
[2019-09-26] MEDS ORDERED: oxyCODONE 5 MG Tab PO ONE (13:51)
[2019-09-26] MEDS ORDERED: Alum Hydrox/Mag Hydrox/Simeth 15 ML, Lidocaine 2% 15 ML PO ONE ×2 (13:51)
--- NOTE | 2019-09-26 14:06 | PCM.HP.2 ---
H&P History of Present Illness - General Date of Service: 09/26/19 Admit Problem/Dx: Admission Diagnosis/Problem Admission Diagnosis/Problem Atypical chest pain Source of Information: Patient, Family, Provider History Limitations: Reports: No Limitations - History of Present Illness Initial Comments - Free Text/Narative: CC: My chest hurts HPI: Malissa presented to the emergency room today with severe left upper chest pain that started right after she woke up this morning. She felt well when she went to bed last night and there were no unusual symptoms yesterday. When she woke up this morning she noted the severe sharp pain in the upper chest. Pain persisted so she presented for evaluation. The pain radiates into her left shoulder area some. She did not take anything at home to make the pain better. No obvious triggers to make the pain worse though it does seem to wax and wane slightly. There is no positional or pleuritic component. She has never had pain like this in the past. She does not feel short of breath and has not been coughing. No complaints of nausea. She does report recent difficulties with heartburn as well as stress. No change in bowel or bladder habits. No nausea or vomiting. No sick contacts. Work-up in the emergency room was largely reassuring. Labs, troponin x2, chest x-ray and EKG were unremarkable. Patient did get some pain relief with ketorolac but not much from morphine or nitroglycerin. She will be admitted for pain control and further monitoring. Chest Pain Score (Numeric/FACES): 8 - Related Data Allergies/Adverse Reactions: Allergies Allergy/AdvReac Type Severity Reaction Status Date / Time alprazolam [From Xanax] AdvReac Anxiety Verified 09/26/19 10:19 Penicillins AdvReac Diarrhea Verified 09/26/19 10:19 Home Medications: Home Meds Loratadine [Claritin] 10 mg PO DAILY PRN 07/21/17 [History] Omeprazole 40 mg PO DAILY 07/28/18 [History] busPIRone HCl [busPIRone] 30 mg PO BID 07/28/18 [History] Tiotropium Br/Olodaterol HCl [Stiolto Respimat Inhal [place]] 2 puff INH DAILY 08/07 [History] Citalopram Hydrobromide [Celexa] 20 mg PO DAILY 01/16/19 [History] Metoprolol Succinate [Toprol XL] 25 mg PO DAILY 06/30/19 [History] Past Medical History HEENT History: Reports: Impaired Vision Cardiovascular History: Reports: Arrhythmia, Hypertension, Other (See Below) Other Cardiovascular History: first degree AV block Respiratory History: Reports: Asthma, Bronchitis, Recurrent, COPD, Other (See Below) Other Respiratory History: fungal pneumonia Gastrointestinal History: Reports: Gastritis, GERD, PUD Genitourinary History: Reports: None 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: Endometrial Ablation, Other OB/BYN History: labial cyst Musculoskeletal History: Reports: Back Pain, Chronic, Fracture Other Musculoskeletal History: mid level DJD Psychiatric History: Reports: Anxiety, Panic Attack Hematologic History: Reports: Anemia, Blood Transfusion(s), Iron Deficiency - Infectious Disease History Infectious Disease History: Reports: C-Difficile, Influenza - Past Surgical History Head Surgeries/Procedures: Reports: None HEENT Surgical History: Reports: None Cardiovascular Surgical History: Reports: None Respiratory Surgical History: Reports: Other (See Below) Other Respiratory Surgeries/Procedures: had influenza A in August of 2018 GI Surgical History: Reports: Cholecystectomy, Colonoscopy, EGD, Hernia, Abdominal Female Surgical History: Reports: Tubal Ligation Musculoskeletal Surgical History: Reports: Other (See Below) Other Musculoskeletal Surgeries/Procedures:: had radiofrequency facet joint denervation lower lumbar Social & Family History - Family History Family Medical History: Noncontributory - Tobacco Use Smoking Status *Q: Current Every Day Smoker Years of Tobacco use: 20 Packs/Tins Daily: 0.5 - Caffeine Use Caffeine Use: Reports: Coffee, Soda - Alcohol Use Alcohol Use History: No - Recreational Drug Use Recreational Drug Use: No - Living Situation & Occupation Living situation: Reports: Single Occupation: Unemployed H&P Review of Systems - Review of Systems: Review Of Systems: See Below Free Text/Narrative: A complete 12 point review of systems was obtained. Pertinent positives and negatives are noted in the history of present illness. All other systems were reviewed and were negative except as noted. Exam - Exam Exam: See Below - Vital Signs Vital Signs: Last Vital Signs Temp 36.4 C 09/26/19 10:12 Pulse 73 09/26/19 10:36 Resp 18 09/26/19 10:36 BP 140/82 09/26/19 10:36 Pulse Ox 97 12/08/19 10:36 Weight: 87.09 kg - Exam Quality Assessment: No: Supplemental Oxygen General: Alert, Oriented, Cooperative, Mild Distress HEENT: Conjunctiva Clear, Mucosa Moist & [place]. No: Scleral Icterus Neck: Supple, Trachea Midline. No: Lymphadenopathy Lungs: Clear to Auscultation, Normal Respiratory Effort Cardiovascular: Regular Rate, Regular Rhythm, Other (mild tenderness over left upper anterior chest ). No: Systolic Murmur GI/Abdominal Exam: Normal Bowel Sounds, Soft, Non-Tender, No Distention Back Exam: Normal Inspection, Full Range of Motion Extremities: No Pedal Edema. No: Increased Warmth Skin: Warm, Dry Neuro Extensive - Mental Status: Alert, Oriented x3, Nl Response to Commands Neuro Extensive - Motor, Sensory, Reflexes: No: Dysarthria, Abnormal Motor, Tremor Psychiatric: Alert, Normal Affect - Patient Data Lab Results Last 24 hrs: Laboratory Results - last 24 hr 09/26/19 09/26/19 09/26/19 Range/Units 10:26 10:26 10:26 WBC 6.0 (4.5-11.0) K/uL RBC 4.90 (3.30-5.50) M/uL Hgb 12.8 (12.0-15.0) g/dL Hct 40.5 (36.0-48.0) % MCV 83 (80-98) fL MCH 26 L (27-31) pg MCHC 32 (32-36) % Plt Count 249 (150-400) K/uL Neut % (Auto) 59 (36-66) % Lymph % (Auto) 27 (24-44) % [place] % (Auto) 8 H (2-6) % Eos % (Auto) 6 H (2-4) % Baso % (Auto) 1 (0-1) % D-Dimer, Quantitative < 100 (0.0-400.0) ng/mL Sodium 138 L (140-148) mmol/L Potassium 4.1 (3.6-5.2) mmol/L Chloride 102 (100-108) mmol/L Carbon Dioxide 26 (21-32) mmol/L Anion Gap 14.1 H (5.0-14.0) mmol/L BUN 14 (7-18) mg/dL Creatinine 0.8 (0.6-1.0) mg/dL Est Cr Clr Drug Dosing 83.63 mL/min Estimated GFR (MDRD) > 60 (>60) Glucose 100 (74-106) mg/dL Lactic Acid (0.4-2.0) mmol/L Calcium 8.3 L (8.5-10.1) mg/dL Magnesium 1.9 (1.8-2.4) mg/dL Total Bilirubin 0.2 (0.2-1.0) mg/dL AST 19 (15-37) U/L ALT 61 (12-78) U/L Alkaline Phosphatase 112 (46-116) U/L Troponin I < 0.017 (0.000-0.056) ng/mL NT-Pro-B Natriuret Pep 78 (5-125) pg/mL Total Protein 6.9 (6.4-8.2) g/dL Albumin 3.3 L (3.4-5.0) g/dL Globulin 3.6 H (2.3-3.5) g/dL Albumin/Globulin Ratio 0.9 L (1.2-2.2) 09/26/19 09/26/19 Range/Units 10:26 12:30 WBC (4.5-11.0) K/uL RBC (3.30-5.50) M/uL Hgb (12.0-15.0) g/dL Hct (36.0-48.0) % MCV (80-98) fL MCH (27-31) pg MCHC (32-36) % Plt Count (150-400) K/uL Neut % (Auto) (36-66) % Lymph % (Auto) (24-44) % [place] % (Auto) (2-6) % Eos % (Auto) (2-4) % Baso % (Auto) (0-1) % D-Dimer, Quantitative (0.0-400.0) ng/mL Sodium (140-148) mmol/L Potassium (3.6-5.2) mmol/L Chloride (100-108) mmol/L Carbon Dioxide (21-32) mmol/L Anion Gap (5.0-14.0) mmol/L BUN (7-18) mg/dL Creatinine (0.6-1.0) mg/dL Est Cr Clr Drug Dosing mL/min Estimated GFR (MDRD) (>60) Glucose (74-106) mg/dL Lactic Acid 1.4 (0.4-2.0) mmol/L Calcium (8.5-10.1) mg/dL Magnesium (1.8-2.4) mg/dL Total Bilirubin (0.2-1.0) mg/dL AST (15-37) U/L ALT (12-78) U/L Alkaline Phosphatase (46-116) U/L Troponin I < 0.017 (0.000-0.056) ng/mL NT-Pro-B Natriuret Pep (5-125) pg/mL Total Protein (6.4-8.2) g/dL Albumin (3.4-5.0) g/dL Globulin (2.3-3.5) g/dL Albumin/Globulin Ratio (1.2-2.2) Result Diagrams: 09/26/19 10:26 12 10:26 Imaging Impressions Last 24 hrs: CXR - images personally reviewed - lungs clear with no mass, infiltrate or effusion. Heart size is normal. *Q Meaningful Use (ADM) - VTE Risk Assess *Q Each Risk Factor Represents 1 Point: Age 41 - 59 years, Obesity ( BMI > 25 kg/m2 ), Abnormal Pulmonary Function (COPD) Total Score 1 Point Risk Factors: 3 Each Risk Factor Represents 2 Points: None Total Score 2 Point Risk Factors: 0 Each Risk Factor Represents 3 Points: None Total Score 3 Point Risk Factors: 0 Each Risk Factor Represents 5 Points: None Total Score 5 Point Risk Factors: 0 Venous Thromboembolism Risk Factor Score *Q: 3 - Problem List (1) Atypical chest pain SNOMED Code(s): 634995099 ICD Code: R07.89 - OTHER CHEST PAIN Status: Acute Current Visit: Yes (2) Tobacco dependence SNOMED Code(s): 72666131 ICD Code: F17.200 - NICOTINE DEPENDENCE, UNSPECIFIED, UNCOMPLICATED Status : Chronic Priority: Medium Current Visit: No Problem Details: (3) COPD (chronic obstructive pulmonary disease) SNOMED Code(s): 77488382 ICD Code: J44.9 - CHRONIC OBSTRUCTIVE PULMONARY DISEASE, UNSPECIFIED Status : Chronic Priority: High Current Visit: No Qualifiers: COPD type: chronic bronchitis Chronic bronchitis type: unspecified Qualified Code(s): J42 - Unspecified chronic bronchitis Problem List Initiated/Reviewed/Updated: Yes Orders Last 24hrs: Active Orders 24 hr Category Date Time Status Patient Status Manage Transfer [TRANSFER] Routine ADT 09/26/19 13:54 Ordered Cardiac Monitoring [RC] .As Directed Care 09/26/19 10:15 Active EKG Documentation Completion [RC] ASDIRECTED Care 09/26/19 10:17 Active Nitroglycerin [Nitrostat] Med 09/26/19 10:15 Active 0.4 mg SL Q5M PRN Resuscitation Status Routine Resus Stat 09/26/19 13:55 Ordered EKG 12 Lead [EK] Stat Ther 09/26/19 10:16 Ordered Medication Orders Nitroglycerin (Nitrostat) 0.4 mg SL Q5M PRN PRN Reason: Chest Pain Stop: 09/27/19 10:16 Assessment/Plan Comment:: ASSESSMENT AND PLAN - Atypical chest pain-acute left upper chest pain with negative work-up and stable vitals. Differential would include musculoskeletal versus possibly gastrointestinal versus other. Pain is extremely atypical for cardiac pain and work-up so far has been negative. -Trial of GI cocktail -If this is ineffective we will try some lorazepam to help with anxiety/stress -Continue PPI -Oxycodone for pain control -? EGD if pain persists/does not improve ? COPD-stable with no evidence for exacerbation. -Continue home medication Tobacco dependence-she is interested in a nicotine patch. Maintenance issues - - DVT prophylaxis -mechanical - GI prophylaxis -PPI - Nutrition -regular diet as tolerated - Lee catheter -not indicated CODE STATUS - full code Admission justification -patient will be referred to observation for pain control and further monitoring Disposition - I would anticipate discharge home after the hospital stay Primary care physician - Estela Mayer M.D. - Mortality Measure Prognosis:: Good
[2019-09-26] MEDS ORDERED: Melatonin 3 MG Tab PO PRN (14:46)
[2019-09-26] MEDS ORDERED: Acetaminophen 325 MG Tab PO PRN (14:46)
[2019-09-26] MEDS ORDERED: LORazepam 2 MG/ML SDV IVPUSH PRN (14:46)
[2019-09-26] MEDS ORDERED: LORazepam 0.5 MG Tab PO PRN (14:46)
[2019-09-26] MEDS ORDERED: Ondansetron 4 MG Tab.DIS PO PRN (14:46)
[2019-09-26] MEDS ORDERED: Loratadine 10 MG Tab PO PRN (14:46)
[2019-09-26] MEDS ORDERED: Albuterol 0.083% 2.5 MG/3 ML Neb Soln NEB PRN (14:46)
[2019-09-26] MEDS ORDERED: Ondansetron 4 MG/2 ML SDV IV PRN (14:46)
[2019-09-26] MEDS ORDERED: Calcium Carbonate 500 MG Tab.Chew PO PRN (14:46)
[2019-09-26] MEDS ORDERED: Magnesium Hydroxide 400 MG/5 ML Susp 30 ML Cup PO PRN (14:46)
[2019-09-26] MEDS ORDERED: Nicotine 14 MG/24 Hr Patch TRDERM PRN (15:13)
[2019-09-26] MEDS: oxyCODONE 5 MG Tab PO PRN ×2 (17:37→22:21)
[2019-09-26] MEDS: busPIRone 10 MG Tab PO SCH (20:35)
[2019-09-27] MEDS: oxyCODONE 5 MG Tab PO PRN (05:02)
[2019-09-27] MEDS ORDERED: Indacaterol/Glycopyrrolate 1 EA Cap.W.Dev Kit of 6 IH SCH (07:00)
[2019-09-27 07:18] VITALS: BP 153/98
[2019-09-27] MEDS ORDERED: Pantoprazole 40 MG Tab.CR PO SCH (07:30)
[2019-09-27] MEDS: busPIRone 10 MG Tab PO SCH (08:59)
[2019-09-27 09:00] VITALS: PULSE 63
[2019-09-27] MEDS ORDERED: Metoprolol Succinate 25 MG Tab.ER PO SCH (09:00)
[2019-09-27] MEDS ORDERED: Citalopram 20 MG Tab PO SCH (09:00)
--- NOTE | 2019-09-27 13:26 | PCM.DCSUM1 ---
Discharge Summary - Hospital Course Brief History: Ms. Francis is a 48-year-old woman who was admitted to observation status through the emergency department for further evaluation of chest pain. - Discharge Data Discharge Date: 09/27/19 Discharge Disposition: Home, Self-Care 01 Condition: Fair - Referral to Home Health Primary Care Physician: PCP None - Discharge Diagnosis/Problem(s) (1) Chest pain SNOMED Code(s): 96021983 ICD Code: R07.9 - CHEST PAIN, UNSPECIFIED Status: Acute Current Visit: Yes Qualifiers: Chest pain type: unspecified Qualified Code(s): R07.9 - Chest pain, unspecified - Patient Summary/Data Hospital Course: Malissa presented to the emergency room with severe left upper chest pain that started right after she woke up. She felt well when she went to bed and there were no unusual symptoms yesterday. When she woke up this morning she noted the severe sharp pain in the upper chest. Pain persisted so she presented for evaluation. The pain radiates into her left shoulder area some. She did not take anything at home to make the pain better. No obvious triggers to make the pain worse though it does seem to wax and wane slightly. There is no positional or pleuritic component. She has never had pain like this in the past. She does not feel short of breath and has not been coughing. She does report recent difficulties with heartburn as well as stress. No change in bowel or bladder habits. No nausea or vomiting. No sick contacts. Work-up in the emergency room was largely reassuring. Labs, troponin x2, chest x-ray and EKG were unremarkable. Patient did get some pain relief with ketorolac but not much from morphine or nitroglycerin. She was admitted for pain control and further evaluation. Follow-up troponin level remained within normal range. She had no recurrent significant episodes of chest pain during the rest of her hospitalization. Prior to discharge she ambulated in the hallways with no significant chest pain. She will be discharged with Protonix twice daily for 2 weeks then once daily thereafter. She will also be prescribed aspirin and nitroglycerin as needed. Exercise Myoview study will be scheduled for FridaySeptember 29 and follow-up appointment with primary care on the or . She will remain on light activity until she is seen for her follow-up appointment and she will resume her usual diet. Consider further evaluation with EGD if the Myoview study is unremarkable. She will return immediately to the urgency department if she notes recurrence of the severe pain. - Patient Instructions Diet: Usual Diet as Tolerated Activity: As Tolerated Other/Special Instructions: These schedule Myoview exercise study for FridaySeptember 29. Please schedule follow-up appointment with primary care provider for September 30 or October 01. Consider EGD Myoview study is normal - Discharge Plan Prescriptions/Med Rec: Aspirin 81 mg PO DAILY #100 tab.chew Nitroglycerin 0.4 mg SL Q5M PRN #50 tab.subl PRN Reason: Chest Pain Pantoprazole [ProTONIX] 40 mg PO DAILY@0730 #30 tab.cr Home Medications: Home Meds Loratadine [Claritin] 10 mg PO DAILY PRN 07/21/17 [History] Omeprazole 40 mg PO DAILY 07/28/18 [History] busPIRone HCl [busPIRone] 30 mg PO BID 07/28/18 [History] Tiotropium Br/Olodaterol HCl [Stiolto Respimat Inhal [place]] 2 puff INH DAILY 08/07 [History] Citalopram Hydrobromide [Celexa] 20 mg PO DAILY 01/16/19 [History] Metoprolol Succinate [Toprol XL] 25 mg PO DAILY 06/30/19 [History] Aspirin 81 mg PO DAILY #100 tab.chew 09/27/19 [Rx] Nitroglycerin 0.4 mg SL Q5M PRN #50 tab.subl 09/27/19 [Rx] Pantoprazole [ProTONIX] 40 mg PO DAILY@0730 #30 tab.cr 09/27/19 [Rx] Referrals: Brittney Laureano PA [Consulting Physician] - - Discharge Summary/Plan Comment DC Time >30 min.: No - Patient Data Vitals - Most Recent: Last Vital Signs Temp 97.7 F 09/27/19 07:16 Pulse 63 09/27/19 08:59 Resp 18 09/27/19 07:16 BP 153/98 H 09/27/19 08:59 Pulse Ox 95 09/27/19 07:16 Weight - Most Recent: 192 lb I&O - Last 24 hours: Intake & Output 09/26/19 09/27/1909/27/19 22:59 06:59 14:59 Intake Total 720 Output Total 100 Balance 620 Lab Results - Last 24 hrs: Laboratory Results - last 24 hr 09/27/19 09/27/19 Range/Units 04:00 04:00 WBC 6.0 (4.5-11.0) K/uL RBC 4.70 (3.30-5.50) M/uL Hgb 12.1 (12.0-15.0) g/dL Hct 39.5 (36.0-48.0) % MCV 84 (80-98) fL MCH 26 L (27-31) pg MCHC 31 L (32-36) % Plt Count 235 (150-400) K/uL Sodium 141 (140-148) mmol/L Potassium 4.5 (3.6-5.2) mmol/L Chloride 105 (100-108) mmol/L Carbon Dioxide 26 (21-32) mmol/L Anion Gap 9.8 (5.0-14.0) mmol/L BUN 19 H (7-18) mg/dL Creatinine 0.8 (0.6-1.0) mg/dL Est Cr Clr Drug Dosing 83.63 mL/min Estimated GFR (MDRD) > 60 (>60) Glucose 100 (74-106) mg/dL Calcium 8.1 L (8.5-10.1) mg/dL TSH, Ultra Sensitive 1.487 (0.358-3.740) uIU/mL Med Orders - Current: Current Medications Acetaminophen (Tylenol) 650 mg PO Q4H PRN PRN Reason: Pain (Mild 1-3)/fever Albuterol (Proventil Neb Soln) 2.5 mg NEB Q4H PRN PRN Reason: Shortness Of Breath/wheezing Buspirone HCl (Buspar) 30 mg PO BID [facility] Last Admin: 09/27/19 08:59 Dose: 30 mg Calcium Carbonate/Glycine (Tums) 1,000 mg PO Q2H PRN PRN Reason: Indigestion Citalopram Hydrobromide (Celexa) 20 mg PO DAILY [facility] Last Admin: 09/27/19 08:59 Dose: 20 mg Glycopyrrolate/Indacaterol (Utibron Neohaler 27.5-15.6 Mcg) 1 each IH BIDRT [facility] Last Admin: 09/27/19 06:59 Dose: 1 each Loratadine (Claritin) 10 mg PO DAILY PRN PRN Reason: Allergies Lorazepam (Ativan) 0.5 mg IVPUSH Q4H PRN PRN Reason: Nausea/Vomiting Lorazepam (Ativan) 0.5 mg PO Q4H PRN PRN Reason: Anxiety Magnesium Hydroxide (Milk Of Magnesia) 30 ml PO Q12H PRN PRN Reason: Constipation Melatonin (Melatonin) 9 mg PO BEDTIME PRN PRN Reason: Sleep Metoprolol Succinate (Toprol Xl) 25 mg PO DAILY [facility] Last Admin: 09/27/19 08:59 Dose: 25 mg Nicotine (Habitrol) 14 mg TRDERM DAILY PRN PRN Reason: nicotine craving Last Admin: 09/26/19 15:25 Dose: 14 mg Ondansetron HCl (Zofran Odt) 4 mg PO Q6H PRN PRN Reason: Nausea able to take PO Ondansetron HCl (Zofran) 4 mg IV Q6H PRN PRN Reason: Nausea/Vomiting Oxycodone HCl (Oxycodone) 5 - 10 mg PO Q4H PRN PRN Reason: Pain Last Admin: 09/27/19 05:02 Dose: 5 mg Pantoprazole Sodium (Protonix) 40 mg PO DAILY@0730 [facility] Last Admin: 09/27/19 07:16 Dose: 40 mg Senna/Docusate Sodium (Senna Plus) 1 tab PO BID PRN PRN Reason: Constipation Discontinued Medications Aspirin (Aspirin) 324 mg PO ONETIME ONE Stop: 09/26/19 10:16 Last Admin: 09/26/19 10:44 Dose: Not Given Al Hydroxide/Mg Hydroxide 15 (ml/ Lidocaine HCl 15 ml) 0 ml PO ONETIME ONE Stop: 09/26/19 13:52 Last Admin: 09/26/19 13:58 Dose: 30 ml Ketorolac Tromethamine (Toradol) 30 mg IM ONETIME ONE Stop: 09/26/19 11:12 Last Admin: 09/26/19 11:32 Dose: 30 mg Morphine Sulfate (Morphine) 4 mg IVPUSH ONETIME ONE Stop: 09/26/19 10:29 Last Admin: 09/26/19 10:32 Dose: 4 mg Nitroglycerin (Nitrostat) 0.4 mg SL Q5M PRN PRN Reason: Chest Pain Stop: 09/27/19 10:16 Oxycodone HCl (Oxycodone) 5 mg PO ONETIME ONE Stop: 09/26/19 13:52 Last Admin: 09/26/19 13:57 Dose: 5 mg - Exam General: Reports: Alert, Oriented, Cooperative, No Acute Distress Lungs: Reports: Clear to Auscultation, Normal Respiratory Effort Cardiovascular: Reports: Regular Rate, Regular Rhythm, No Murmurs GI/Abdominal Exam: Soft, Non-Tender, No Organomegaly, No Distention Extremities: Non-Tender, No Pedal Edema
== END 2019-09-27 14:45 | disposition home or self-care (01) ==
LOC: JP.ED 10:04 → JP.MS 13:54
PROVIDERS: ADMIT Internal Medicine; ATTEND Hospitalist
DX: R07.89 Other chest pain (principal); J44.9 Chronic obstructive pulmonary disease, unspecified; I10 Essential (primary) hypertension; K21.9 Gastro-esophageal reflux disease without esophagitis; F41.9 Anxiety disorder, unspecified; D50.9 Iron deficiency anemia, unspecified; F17.210 Nicotine dependence, cigarettes, uncomplicated; Z88.0 Allergy status to penicillin; Z88.8 Allergy status to other drugs, medicaments and biological substances; Z79.899 Other long term (current) drug therapy
CPT/HCPCS: 36415; 71046; 80048; 80053; 83605; 83735; 83880; 84443; 84484; 85025; 85027; 85379; 93005; 93010; 94640; 96372; 96374; 99284; 99285-25; A9270-GY; G0378; J1885; J2270

== ENCOUNTER 2019-11-20 14:34 | Emergency (ER) | payer MEDICAID ==
[2019-11-20 14:47] VITALS: BP 151/77; PULSE 67
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
--- NOTE | 2019-11-20 15:29 | CRLCR ---
Indication: Pain after injury. Technique: Right forearm 2 views. Comparison: None. Findings: No acute fracture or dislocation. Normal alignment at the wrist and elbow. No elbow joint effusion. Joint spaces are well preserved. Soft tissues are unremarkable. Impression: No acute findings. Dictated by Rena Brumfield MD @ Nov 20 2019 3:27PM Signed by Dr. Rena Brumfield @ Nov 20 2019 3:29PM
--- NOTE | 2019-11-20 15:29 | CRLCR ---
Indication: Pain after injury. Technique: Right elbow 4 views. Comparison: None. Findings: No acute fracture or dislocation. Joint spaces are well preserved. No elbow joint effusion. Soft tissues are unremarkable. Impression: No acute findings. Dictated by Rena Brumfield MD @ Nov 20 2019 3:24PM Signed by Dr. Rena Brumfield @ Nov 20 2019 3:27PM
== END 2019-11-20 15:31 | disposition home or self-care (01) ==
LOC: JP.ED 14:34
DX: S56.911A Strain of unspecified muscles, fascia and tendons at forearm level, right arm, initial encounter (principal); F41.9 Anxiety disorder, unspecified; I10 Essential (primary) hypertension; J44.9 Chronic obstructive pulmonary disease, unspecified; K21.9 Gastro-esophageal reflux disease without esophagitis; F17.210 Nicotine dependence, cigarettes, uncomplicated; Z79.82 Long term (current) use of aspirin; Z79.899 Other long term (current) drug therapy; Y04.0XXA Assault by unarmed brawl or fight, initial encounter
CPT/HCPCS: 73080-RT; 73090-RT; 99282; 99283-25

== ENCOUNTER 2019-12-16 17:53 | Emergency (ER) | payer MEDICAID ==
[2019-12-16 18:06] VITALS: BP 153/89; PULSE 72
[2019-12-16] MEDS ORDERED: Ketorolac 60 MG/2 ML SDV IM ONE (18:16)
--- NOTE | 2019-12-16 18:22 | EDM.PDOC ---
ED HPI GENERAL MEDICAL PROBLEM - General Chief Complaint: Back Pain or Injury Stated Complaint: BACK PAIN Time Seen by Provider: 12/16/19 18:17 Source of Information: Reports: Patient, Old Records History Limitations: Reports: No Limitations - History of Present Illness INITIAL COMMENTS - FREE TEXT/NARRATIVE: 48 yo female frequent user of the ER presents with chronic low back pain. Says she is waiting for back surgery in [place]. Has a pain management provider out of [place] that has her on gabapentin at night. Is not using her family doctor much as "she doesn't do anything". Says she is not getting much sleep at night. Nothing new is going on with her back. No radiation down her legs. No urinary sx 's. No fever. 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: Reports: Other (see below) (home meds) - Related Data Allergies Allergy/AdvReac Type Severity Reaction Status Date / Time hydromorphone [From Dilaudid] Allergy Vomiting Verified 11/20/19 14:48 alprazolam [From Xanax] AdvReac Anxiety Verified 11/20/19 14:48 Penicillins AdvReac Diarrhea Verified 11/20/19 14:48 Home Meds: Home Meds Loratadine [Claritin] 10 mg PO DAILY PRN 07/21/17 [History] Omeprazole 40 mg PO DAILY 07/28/18 [History] busPIRone HCl [busPIRone] 30 mg PO BID 07/28/18 [History] Tiotropium Br/Olodaterol HCl [Stiolto Respimat Inhal [place]] 2 puff INH DAILY 08/07 [History] Citalopram Hydrobromide [Celexa] 20 mg PO DAILY 01/16/19 [History] Aspirin 81 mg PO DAILY #100 tab.chew 09/27/19 [Rx] Nitroglycerin 0.4 mg SL Q5M PRN #50 tab.subl 09/27/19 [Rx] Pantoprazole [ProTONIX] 40 mg PO DAILY@0730 #30 tab.cr 09/27/19 [Rx] Past Medical History HEENT History: Reports: Impaired Vision Cardiovascular History: Reports: Arrhythmia, Hypertension, Other (See Below) Other Cardiovascular History: first degree AV block Respiratory History: Reports: Asthma, Bronchitis, Recurrent, COPD, Other (See Below) Other Respiratory History: fungal pneumonia Gastrointestinal History: Reports: Gastritis, GERD, PUD Genitourinary History: Reports: None 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: Endometrial Ablation, 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 LABOR CAMP 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 History: labial cyst Musculoskeletal History: Reports: Back Pain, Chronic, Fracture Other Musculoskeletal History: mid level DJD Psychiatric History: Reports: Anxiety, Panic Attack Hematologic History: Reports: Anemia, Blood Transfusion(s), Iron Deficiency - Infectious Disease History Infectious Disease History: Reports: C-Difficile, Influenza - Past Surgical History Head Surgeries/Procedures: Reports: None HEENT Surgical History: Reports: None Cardiovascular Surgical History: Reports: None Respiratory Surgical History: Reports: Other (See Below) Other Respiratory Surgeries/Procedures: had influenza A in August of 2018 GI Surgical History: Reports: Cholecystectomy, Colonoscopy, EGD, Hernia, Abdominal Female Surgical History: Reports: Tubal Ligation Musculoskeletal Surgical History: Reports: Other (See Below) Other Musculoskeletal Surgeries/Procedures:: had radiofrequency facet joint denervation lower lumbar Social & Family History - Family History Family Medical History: Noncontributory - Caffeine Use Caffeine Use: Reports: Coffee, Soda - Living Situation & Occupation Living situation: Reports: Single Occupation: Unemployed ED ROS GENERAL - Review of Systems Review Of Systems: Comprehensive ROS is negative, except as noted in HPI. Musculoskeletal: Reports: Back Pain ED EXAM,LOWER BACK PAIN/INJURY - Physical Exam Exam: See Below Exam Limited By: No Limitations General Appearance: Alert, WD/WN, No Apparent Distress Eye Exam: Bilateral Eye: Normal Inspection Ears: Normal External Exam, Normal Canal, Hearing Grossly Normal, Normal TMs Nose: Normal Inspection, No Blood Throat/Mouth: Normal Inspection, Normal Lips, Normal Oropharynx, Normal Voice, No Airway Compromise Head: Atraumatic, Normocephalic Neck: Normal Inspection Respiratory/Chest: No Respiratory Distress, Lungs Clear, Normal Breath Sounds, No Accessory Muscle Use Cardiovascular: Regular Rate, Rhythm, No Edema GI/Abdominal: Normal Bowel Sounds, Soft, Non-Tender, No Distention Back Exam: Normal Inspection, Other (lumbar pain across low back). No: CVA Tenderness (R), CVA Tenderness (L) Extremities: Normal Inspection Neurological: Alert, Normal Mood/Affect, Normal Dorsiflexion, CN II-XII Intact, No Motor/Sensory Deficits, Oriented x 3 Psychiatric: Normal Affect, Normal Mood Skin Exam: Warm, Dry, Intact, Normal Color, No Rash Course - Vital Signs Last Recorded V/S: Last Vital Signs Temp 35.7 C L 12/16/19 18:05 Pulse 72 12/16/19 18:05 Resp 16 12/16/19 18:05 BP 153/89 H 12/16/19 18:05 Pulse Ox 99 12/16/19 18:05 - Orders/Labs/Meds Orders: Active Orders 24 hr Category Date Time Status Ketorolac [Toradol] Med 12/16/19 18:16 Once 60 mg IM ONETIME ONE Departure - Departure Time of Disposition: 18:45 Disposition: Home, Self-Care 01 Condition: Fair Clinical Impression: Chronic low back pain Qualifiers: Back pain laterality: unspecified Sciatica presence: without sciatica Qualified Code(s): M54.5 - Low back pain; G89.29 - Other chronic pain - Discharge Information *PRESCRIPTION DRUG MONITORING PROGRAM REVIEWED*: No *COPY OF PRESCRIPTION DRUG MONITORING REPORT IN PATIENT ALMAZ: No Referrals: Estela Stovall WASHING AND SCREENING PLANT SUPERVISOR [Primary Care Provider] - Forms: ED Department Discharge Additional Instructions: See your doctor to discuss adjustments in medical management. Sepsis Event Note - Focused Exam Vital Signs: Vital Signs Temp Pulse Resp BP Pulse Ox 12/16/19 18:05 35.7 C L 72 16 153/89 H 99 Date Exam was Performed: 12/16/19 Time Exam was Performed: 18:17 - My Orders Last 24 Hours: My Active Orders 12/16/19 18:16 Ketorolac [Toradol] 60 mg IM ONETIME ONE - Assessment/Plan Last 24 Hours: My Active Orders 12/16/19 18:16 Ketorolac [Toradol] 60 mg IM ONETIME ONE
== END 2019-12-16 18:53 | disposition home or self-care (01) ==
LOC: JP.ED 17:53
DX: G89.29 Other chronic pain (principal); M54.5 Low back pain; I10 Essential (primary) hypertension; J44.9 Chronic obstructive pulmonary disease, unspecified; F41.9 Anxiety disorder, unspecified; K21.9 Gastro-esophageal reflux disease without esophagitis; Z79.899 Other long term (current) drug therapy; Z79.82 Long term (current) use of aspirin; Z88.0 Allergy status to penicillin; Z88.1 Allergy status to other antibiotic agents; Z88.6 Allergy status to analgesic agent
CPT/HCPCS: 96372; 99283; J1885

== ENCOUNTER 2020-01-04 12:25 | Emergency (ER) | payer MEDICAID ==
[2020-01-04 13:53] VITALS: PULSE 76
[2020-01-04] MEDS ORDERED: Sodium Chloride 0.9% 10 ML Syringe FLUSH PRN (14:06)
[2020-01-04] MEDS ORDERED: methylPREDNISolone Sodium Succinate 125 MG/2 ML SDV IVPUSH ONE (14:06)
[2020-01-04] MEDS ORDERED: Albuterol/Ipratropium 3.0-0.5 MG/3 ML Neb Soln NEB ONE (14:07)
--- NOTE | 2020-01-04 14:10 | EDM.PDOC ---
ED HPI GENERAL MEDICAL PROBLEM - General Chief Complaint: Respiratory Problem Stated Complaint: WHEEZING,SOB Time Seen by Provider: 01/04/20 14:10 Source of Information: Reports: Patient History Limitations: Reports: No Limitations - History of Present Illness INITIAL COMMENTS - FREE TEXT/NARRATIVE: pt arrived with a cough, sob and wheezing. Onset: Gradual Duration: Day(s): Location: Reports: Chest Associated Symptoms: Reports: Cough, Shortness of Breath - Related Data Allergies Allergy/AdvReac Type Severity Reaction Status Date / Time hydromorphone [From Dilaudid] Allergy Vomiting Verified 11/20/19 14:48 alprazolam [From Xanax] AdvReac Anxiety Verified 11/20/19 14:48 Penicillins AdvReac Diarrhea Verified 11/20/19 14:48 Home Meds: Home Meds Loratadine [Claritin] 10 mg PO DAILY PRN 07/21/17 [History] Omeprazole 40 mg PO DAILY 07/28/18 [History] busPIRone HCl [busPIRone] 30 mg PO BID 07/28/18 [History] Tiotropium Br/Olodaterol HCl [Stiolto Respimat Inhal [place]] 2 puff INH DAILY 08/07 [History] Citalopram Hydrobromide [Celexa] 40 mg PO DAILY 01/16/19 [History] Aspirin 81 mg PO DAILY #100 tab.chew 09/27/19 [Rx] Nitroglycerin 0.4 mg SL Q5M PRN #50 tab.subl 09/27/19 [Rx] Pantoprazole [ProTONIX] 40 mg PO DAILY@0730 #30 tab.cr 09/27/19 [Rx] Gabapentin [Neurontin] 600 mg PO TID 01/04/20 [History] Metoprolol Succinate [Toprol Xl] 50 mg PO DAILY 01/04/20 [History] traMADol [Ultram] 50 mg PO TID 01/04/20 [History] Past Medical History HEENT History: Reports: Impaired Vision Cardiovascular History: Reports: Arrhythmia, Hypertension, Other (See Below) Other Cardiovascular History: first degree AV block Respiratory History: Reports: Asthma, Bronchitis, Recurrent, COPD, Other (See Below) Other Respiratory History: fungal pneumonia Gastrointestinal History: Reports: Gastritis, GERD, PUD Genitourinary History: Reports: None 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: Endometrial Ablation, Other KITCHEN FOOD SERVER History: labial cyst Musculoskeletal History: Reports: Back Pain, Chronic, Fracture Other Musculoskeletal History: mid level DJD Psychiatric History: Reports: Anxiety, Panic Attack Hematologic History: Reports: Anemia, Blood Transfusion(s), Iron Deficiency - Infectious Disease History Infectious Disease History: Reports: Chicken Pox - Past Surgical History Head Surgeries/Procedures: Reports: None HEENT Surgical History: Reports: None Cardiovascular Surgical History: Reports: None Respiratory Surgical History: Reports: Other (See Below) Other Respiratory Surgeries/Procedures: had influenza A in August of 2018 GI Surgical History: Reports: Cholecystectomy, Colonoscopy, EGD, Hernia, Abdominal Female Surgical History: Reports: Tubal Ligation Musculoskeletal Surgical History: Reports: Other (See Below) Other Musculoskeletal Surgeries/Procedures:: had radiofrequency facet joint denervation lower lumbar Social & Family History - Family History Family Medical History: Noncontributory - Tobacco Use Smoking Status *Q: Current Every Day Smoker Years of Tobacco use: 25 Packs/Tins Daily: 0.5 - Caffeine Use Caffeine Use: Reports: Coffee, Soda - Recreational Drug Use Recreational Drug Use: No Drug Use in Last 12 Months: Yes - Living Situation & Occupation Living situation: Reports: Single Occupation: Unemployed ED ROS GENERAL - Review of Systems Review Of Systems: See Below Constitutional: Reports: Chills, Malaise HEENT: Reports: No Symptoms Respiratory: Reports: Shortness of Breath, Cough, Other (pt is not raising sputum.) Cardiovascular: Reports: No Symptoms Endocrine: Reports: No Symptoms GI/Abdominal: Reports: No Symptoms : Reports: No Symptoms Musculoskeletal: Reports: No Symptoms ED EXAM, GENERAL - Physical Exam Exam: See Below Free Text/Narrative:: pt arrived with a history of a cough and feeling sob. Pt does have a past history of blastomycosis ayear or so ago. Exam Limited By: No Limitations General Appearance: Alert, Anxious, Moderate Distress Ears: Normal TMs Nose: Normal Inspection Throat/Mouth: Normal Inspection Head: Atraumatic Neck: Normal Inspection Respiratory/Chest: Decreased Breath Sounds Cardiovascular: Regular Rate, Rhythm GI/Abdominal: Soft, Non-Tender (Female) Exam: Deferred Rectal (Female) Exam: Deferred Extremities: Normal Inspection Neurological: Alert, Oriented, Normal Cognition Psychiatric: Normal Mood Course - Vital Signs Last Recorded V/S: Last Vital Signs Temp 36.5 C 01/04/20 14:06 Pulse 76 01/04/20 15:29 Resp 22 H 01/04/20 13:45 BP 127/67 01/04/20 15:29 Pulse Ox 97 01/04/20 15:29 - Orders/Labs/Meds Orders: Active Orders 24 hr Category Date Time Status RT Aerosol Therapy [RC] ASDIRECTED Care 01/04/20 14:07 Active Sodium Chloride 0.9% [Normal Saline] 1,000 ml Med 01/04/20 14:15 Active IV ASDIRECTED Sodium Chloride 0.9% [Saline Flush] Med 01/04/20 14:06 Active 10 ml FLUSH ASDIRECTED PRN Saline Lock Insert [OM.PC] Routine Oth 01/04/20 14:06 Ordered Medication Orders Sodium Chloride (Normal Saline) 1,000 mls @ 999 mls/hr IV ASDIRECTED ARIEL Last Admin: 01/04/20 14:22 Dose: 999 mls/hr Sodium Chloride (Saline Flush) 10 ml FLUSH ASDIRECTED PRN PRN Reason: Keep Vein Open Last Admin: 01/04/20 14:22 Dose: 10 ml Labs: Laboratory Tests 01/04/20 01/04/20 Range/Units 14:10 14:10 WBC 11.6 H (4.5-11.0) K/uL RBC 4.59 (3.30-5.50) M/uL Hgb 11.5 L (12.0-15.0) g/dL Hct 36.9 (36.0-48.0) % MCV 80 (80-98) fL MCH 25 L (27-31) pg MCHC 31 L (32-36) % Plt Count 263 (150-400) K/uL Neut % (Auto) 78 H (36-66) % Lymph % (Auto) 11 L (24-44) % [place] % (Auto) 7 H (2-6) % Eos % (Auto) 4 (2-4) % Baso % (Auto) 0 (0-1) % Sodium 138 L (140-148) mmol/L Potassium 4.0 (3.6-5.2) mmol/L Chloride 103 (100-108) mmol/L Carbon Dioxide 25 (21-32) mmol/L Anion Gap 14.0 (5.0-14.0) mmol/L BUN 12 (7-18) mg/dL Creatinine 0.7 (0.6-1.0) mg/dL Est Cr Clr Drug Dosing 94.54 mL/min Estimated GFR (MDRD) > 60 (>60) Glucose 92 (74-106) mg/dL Calcium 8.2 L (8.5-10.1) mg/dL Total Bilirubin 0.3 (0.2-1.0) mg/dL AST 23 (15-37) U/L ALT 51 (12-78) U/L Alkaline Phosphatase 127 H (46-116) U/L Total Protein 6.7 (6.4-8.2) g/dL Albumin 3.0 L (3.4-5.0) g/dL Globulin 3.7 H (2.3-3.5) g/dL Albumin/Globulin Ratio 0.8 L (1.2-2.2) Meds: Medications Generic Name Dose Route Start Last Admin Trade Name Freq PRN Reason Stop Dose Admin Sodium Chloride 1,000 mls @ 999 mls/hr 01/04/20 14:15 01/04/20 14:22 Normal Saline IV 999 mls/hr ASDIRECTED ARIEL Administration Sodium Chloride 10 ml 01/04/20 14:06 01/04/20 14:22 Saline Flush FLUSH 10 ml ASDIRECTED PRN Administration Keep Vein Open Discontinued Medications Generic Name Dose Route Start Last Admin Trade Name Freq PRN Reason Stop Dose Admin Acetaminophen 650 mg 01/04/20 14:31 01/04/20 15:06 Tylenol PO 01/04/20 14:32 650 mg NOW ONE Administration Albuterol/Ipratropium 3 ml 01/04/20 14:07 01/04/20 14:23 Duoneb 3.0-0.5 Mg/3 Ml NEB 01/04/20 14:08 3 ml ONETIME ONE Administration Ceftriaxone Sodium 1 gm/ 50 mls @ 100 mls/hr 01/04/20 15:27 01/04/20 15:39 Sodium Chloride IV 01/04/20 15:56 100 mls/hr ONETIME ONE Administration Methylprednisolone Sodium Succinate 125 mg 01/04/20 14:06 01/04/20 14:23 Solu-Medrol IVPUSH 01/04/20 14:07 125 mg ONETIME ONE Administration - Re-Assessments/Exams Free Text/Narrative Re-Assessment/Exam: 01/04/20 16:11 chest xray showed a bilateral pneumonia, white count is mildly elevated. Departure - Departure Time of Disposition: 15:31 Disposition: Home, Self-Care 01 Condition: Fair Clinical Impression: Bilateral pneumonia - Discharge Information Instructions: Community-Acquired Pneumonia, Adult, [facility]-on-[id number] Referrals: Estela Stovall, CRAFT ARTIST [Primary Care Provider] - Forms: ED Department Discharge Care Plan Goals: cool mist humidfier, push fluids, use nebs q4-6h, zithromax 250 2 tabs now 1tab daily for 6 days, appt at [facility] on Friday. to see if improving, predisone 20 mg for the next 3 days then 10 mg for 3 days. Sepsis Event Note - Evaluation Sepsis Screening Result: No Definite Risk - Focused Exam Vital Signs: Vital Signs Temp Pulse Resp BP Pulse Ox 01/04/20 15:29 76 127/67 97 01/04/20 14:06 36.5 C 76 157/78 H 97 01/04/20 13:49 78 155/89 H 92 L 01/04/20 13:45 36.5 C 76 22 H 157/78 H 97 Date Exam was Performed: 01/04/20 Time Exam was Performed: 16:07 - My Orders Last 24 Hours: My Active Orders 01/04/20 14:06 Sodium Chloride 0.9% [Saline Flush] 10 ml FLUSH ASDIRECTED PRN Saline Lock Insert [OM.PC] Routine 01/04/20 14:07 RT Aerosol Therapy [RC] ASDIRECTED 01/04/20 14:15 Sodium Chloride 0.9% [Normal Saline] 1,000 ml IV ASDIRECTED - Assessment/Plan Last 24 Hours: My Active Orders 01/04/20 14:06 Sodium Chloride 0.9% [Saline Flush] 10 ml FLUSH ASDIRECTED PRN Saline Lock Insert [OM.PC] Routine 01/04/20 14:07 RT Aerosol Therapy [RC] ASDIRECTED 01/04/20 14:15 Sodium Chloride 0.9% [Normal Saline] 1,000 ml IV ASDIRECTED
[2020-01-04] MEDS ORDERED: Sodium Chloride 0.9% 1,000 ML IV SCH (14:15)
[2020-01-04] MEDS ORDERED: Acetaminophen 325 MG Tab PO ONE (14:31)
--- NOTE | 2020-01-04 14:53 | CR ---
CHEST: 2 view CLINICAL HISTORY:SOB, cough COMPARISON:October 08, 2019 FINDINGS: There is some patchy density in the right infrahilar region and in the retrocardiac region. Heart size and pulmonary vascularity are normal. No effusions are seen Impression: Patchy right mid and lower lung density is suspect for right middle lobe and some upper lobe pneumonia. The patchy density in the retrocardiac region may represent some minimal left lower lobe infiltrate.. Short-term follow-up recommended until clear
[2020-01-04] MEDS ORDERED: cefTRIAXone 1 GM in Sodium Chloride 0.9% 50 ML IV ONE (15:27)
[2020-01-04 15:29] VITALS: BP 127/67
== END 2020-01-04 16:09 | disposition home or self-care (01) ==
LOC: JP.ED 12:25
DX: J18.9 Pneumonia, unspecified organism (principal); I10 Essential (primary) hypertension; J44.9 Chronic obstructive pulmonary disease, unspecified; K21.9 Gastro-esophageal reflux disease without esophagitis; F41.0 Panic disorder [episodic paroxysmal anxiety]; F17.210 Nicotine dependence, cigarettes, uncomplicated; Z88.5 Allergy status to narcotic agent; Z88.8 Allergy status to other drugs, medicaments and biological substances; Z88.0 Allergy status to penicillin; Z79.899 Other long term (current) drug therapy; Z79.82 Long term (current) use of aspirin
CPT/HCPCS: 36415; 71046; 71046-26; 80053; 85025; 94640; 96361; 96365; 96375; 99283; 99285-25; A9270-GY; J0696; J2930; J7030; J7050; J7620-GY

== ENCOUNTER 2020-01-17 20:29 | Emergency (ER) | payer MEDICAID, OTHER ==
[2020-01-17 20:42] VITALS: BP 120/82; PULSE 87
[2020-01-17] MEDS ORDERED: Benzonatate 100 MG Cap PO ONE (21:15)
--- NOTE | 2020-01-17 21:23 | EDM.PDOC ---
ED HPI GENERAL MEDICAL PROBLEM - General Chief Complaint: Respiratory Problem Stated Complaint: COUGH,SOB Time Seen by Provider: 01/17/20 21:10 Source of Information: Reports: Patient, Old Records, RN History Limitations: Reports: No Limitations - History of Present Illness INITIAL COMMENTS - FREE TEXT/NARRATIVE: 49 yo female presents with a dry cough that has been present for the past 5 days. No fever. No relief with her nebulizer. Has not been to the clinic for this. Is a frequent user of the ER. Is still smoking. Stools normal today, but have been red or dark recently. Has a pHx per review of erosive gastritis. Stools are an odd shape now, thin. I can find upper endoscopy for her in , no colonoscopy. Onset: Gradual Onset Date: 01/12/20 Duration: Day(s): (5), Constant Location: Reports: Chest Quality: Reports: Other (no pain) Severity: Moderate (cough) Improves with: Reports: None. Denies: Medication Worsens with: Reports: Other (smoking) Context: Reports: Other (see HPI) Associated Symptoms: Reports: Cough, Shortness of Breath (when she coughs a lot. 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: Other (see below) (finished her azithromycin and prednisone and is currently using albuterol without relief.) - Related Data Allergies Allergy/AdvReac Type Severity Reaction Status Date / Time hydromorphone [From Dilaudid] Allergy Vomiting Verified 01/17/20 20:46 alprazolam [From Xanax] AdvReac Anxiety Verified 01/17/20 20:46 Penicillins AdvReac Diarrhea Verified 01/17/20 20:46 Home Meds: Home Meds Loratadine [Claritin] 10 mg PO DAILY PRN 07/21/17 [History] busPIRone HCl [busPIRone] 30 mg PO BID 07/28/18 [History] Tiotropium Br/Olodaterol HCl [Stiolto Respimat Inhal [place]] 2 puff INH DAILY 08/07 [History] Citalopram Hydrobromide [Celexa] 40 mg PO DAILY 01/16/19 [History] Nitroglycerin 0.4 mg SL Q5M PRN #50 tab.subl 09/27/19 [Rx] Pantoprazole [ProTONIX] 40 mg PO DAILY@0730 #30 tab.cr 09/27/19 [Rx] Gabapentin [Neurontin] 900 mg PO TID 01/04/20 [History] Metoprolol Succinate [Toprol Xl] 50 mg PO DAILY 01/04/20 [History] traMADol [Ultram] 50 mg PO TID 01/04/20 [History] Albuterol [Proventil Neb Soln] 2.5 mg .XX Q4H 01/17/20 [History] Benzonatate [Tessalon Perle] 100 - 200 mg PO QID PRN #40 capsule 01/17/20 [Rx] Past Medical History HEENT History: Reports: Impaired Vision Cardiovascular History: Reports: Arrhythmia, Hypertension, Other (See Below) Other Cardiovascular History: first degree AV block Respiratory History: Reports: Asthma, Bronchitis, Recurrent, COPD, Other (See Below) Other Respiratory History: fungal pneumonia Gastrointestinal History: Reports: Gastritis, GERD, PUD Genitourinary History: Reports: None 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 RECORDER 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: Endometrial Ablation, Other TELEPHONE RECORDER History: labial cyst Musculoskeletal History: Reports: Back Pain, Chronic, Fracture Other Musculoskeletal History: mid level DJD Psychiatric History: Reports: Anxiety, Panic Attack Hematologic History: Reports: Anemia, Blood Transfusion(s), Iron Deficiency - Infectious Disease History Infectious Disease History: Reports: Chicken Pox - Past Surgical History Head Surgeries/Procedures: Reports: None HEENT Surgical History: Reports: None Cardiovascular Surgical History: Reports: None Respiratory Surgical History: Reports: Other (See Below) Other Respiratory Surgeries/Procedures: had influenza A in August of 2018 GI Surgical History: Reports: Cholecystectomy, Colonoscopy, EGD, Hernia, Abdominal Female Surgical History: Reports: Tubal Ligation Musculoskeletal Surgical History: Reports: Other (See Below) Other Musculoskeletal Surgeries/Procedures:: had radiofrequency facet joint denervation lower lumbar Social & Family History - Family History Family Medical History: Noncontributory - Tobacco Use Smoking Status *Q: Current Every Day Smoker Years of Tobacco use: 35 Packs/Tins Daily: 0.5 - Caffeine Use Caffeine Use: Reports: Coffee, Soda - Recreational Drug Use Recreational Drug Use: No - Living Situation & Occupation Living situation: Reports: Single Occupation: Unemployed ED ROS GENERAL - Review of Systems Review Of Systems: See Below Constitutional: Denies: Fever, Chills HEENT: Reports: No Symptoms Respiratory: Reports: Shortness of Breath (only with coughing), Cough. Denies: Wheezing, Sputum, Hemoptysis Cardiovascular: Reports: No Symptoms GI/Abdominal: Reports: No Symptoms Skin: Reports: No Symptoms ED EXAM, GENERAL - Physical Exam Exam: See Below Exam Limited By: No Limitations General Appearance: Alert, WD/WN, No Apparent Distress Eye Exam: Bilateral Eye: Normal Inspection Ears: Normal External Exam, Normal Canal, Hearing Grossly Normal, Normal TMs Ear Exam: Bilateral Ear: Auricle Normal, Canal Normal, TM normal Nose: Normal Inspection, No Blood Throat/Mouth: Normal Inspection, Normal Lips, Normal Oropharynx, Normal Voice, No Airway Compromise Head: Atraumatic, Normocephalic Neck: Normal Inspection Respiratory/Chest: No Respiratory Distress, Lungs Clear, Normal Breath Sounds, No Accessory Muscle Use Cardiovascular: Regular Rate, Rhythm, No Edema GI/Abdominal: Normal Bowel Sounds, Soft, Non-Tender (and no epigastric pain.), No Distention Back Exam: Normal Inspection. No: CVA Tenderness (R), CVA Tenderness (L) Extremities: Normal Inspection, Normal Range of Motion, Non-Tender, Pedal Edema (trace to both ankles.). No: No Pedal Edema Neurological: Alert, Oriented, CN II-XII Intact, Normal Cognition, No Motor/ Sensory Deficits Psychiatric: Normal Affect, Normal Mood Skin Exam: Warm, Dry, Intact, Normal Color, No Rash Course - Vital Signs Last Recorded V/S: Last Vital Signs Temp 36.6 C 01/17/20 20:50 Pulse 87 01/17/20 20:50 Resp 24 H 01/17/20 20:50 BP 120/82 01/17/20 20:50 Pulse Ox 97 01/17/20 20:50 - Orders/Labs/Meds Orders: Active Orders 24 hr Category Date Time Status Hemoccult [OCCULT BLOOD DIAGNOSTIC] [OP] Stat Lab 01/17/20 21:42 Ordered Labs: Laboratory Tests 01/17/20 Range/Units 20:20 WBC 8.7 (4.5-11.0) K/uL RBC 3.41 (3.30-5.50) M/uL Hgb 8.2 L D (12.0-15.0) g/dL Hct 27.8 L (36.0-48.0) % MCV 82 (80-98) fL MCH 24 L (27-31) pg MCHC 30 L (32-36) % Plt Count 299 (150-400) K/uL Meds: Medications Discontinued Medications Generic Name Dose Route Start Last Admin Trade Name Freq PRN Reason Stop Dose Admin Benzonatate 200 mg 01/17/20 21:15 01/17/20 21:23 Tessalon Perles PO 01/17/20 21:16 200 mg ONETIME ONE Administration Guaifenesin/Codeine Phosphate 10 ml 01/17/20 21:48 01/17/20 21:53 Robitussin Ac PO 01/17/20 21:49 10 ml ONETIME ONE Administration Polyethylene Glycol 17 gm 01/17/20 22:11 Miralax PO 01/17/20 22:12 ONETIME ONE - Re-Assessments/Exams Free Text/Narrative Re-Assessment/Exam: 01/17/20 21:49 Minimal change with Tessalon, will try Robitussin AC 10 ml po Departure - Departure Time of Disposition: 22:20 Disposition: Home, Self-Care 01 Condition: Fair Clinical Impression: Cough, Tobacco abuse Anemia Qualifiers: Anemia type: other cause Other causes of anemia: acute posthemorrhagic Qualified Code(s): D62 - Acute posthemorrhagic anemia - Discharge Information *PRESCRIPTION DRUG MONITORING PROGRAM REVIEWED*: No *COPY OF PRESCRIPTION DRUG MONITORING REPORT IN PATIENT ALMAZ: No Prescriptions: Benzonatate [Tessalon Perle] 100 - 200 mg PO QID PRN #40 capsule PRN Reason: Cough Referrals: PCP,None [Primary Care Provider] - Forms: ED Department Discharge Additional Instructions: No smoking. Take Tessalon as needed for cough. Take Miralax daily to keep stools soft. F/U with Dr. Bird for ? colonoscopy. See your primary care provider in the interim as needed. Sepsis Event Note - Evaluation Sepsis Screening Result: No Definite Risk - Focused Exam Vital Signs: Vital Signs Temp Pulse Resp BP Pulse Ox 01/17/20 20:50 36.6 C 87 24 H 120/82 97 01/17/20 20:41 36.6 C 87 24 H 120/82 97 Date Exam was Performed: 01/17/20 Time Exam was Performed: 22:12 - My Orders Last 24 Hours: My Active Orders 01/17/20 21:42 Hemoccult [OCCULT BLOOD DIAGNOSTIC] [OP] Stat - Assessment/Plan Last 24 Hours: My Active Orders 01/17/20 21:42 Hemoccult [OCCULT BLOOD DIAGNOSTIC] [OP] Stat
[2020-01-17] MEDS ORDERED: Codeine/guaiFENesin 100mg-10 MG/5 ML Syrup 10 ML Cup PO ONE (21:48)
[2020-01-17] MEDS ORDERED: Polyethylene Glycol 3350 Powder 17 GM Packet PO ONE (22:11)
== END 2020-01-17 22:40 | disposition home or self-care (01) ==
LOC: JP.ED 20:29
DX: R05 Cough (principal); D62 Acute posthemorrhagic anemia; K21.9 Gastro-esophageal reflux disease without esophagitis; F41.9 Anxiety disorder, unspecified; F17.210 Nicotine dependence, cigarettes, uncomplicated; I10 Essential (primary) hypertension; J44.9 Chronic obstructive pulmonary disease, unspecified; Z88.5 Allergy status to narcotic agent; Z88.0 Allergy status to penicillin; Z88.8 Allergy status to other drugs, medicaments and biological substances
CPT/HCPCS: 36415; 85027; 99283; A9270

== ENCOUNTER 2020-01-20 08:15 | Inpatient (IN) | payer MEDICAID, OTHER ==
[~2020-01-20 08:15] MED LIST: Dextrose 5%-Lactated Ringers 1,000 ML IV SCH
[2020-01-20] MEDS ORDERED: fentaNYL 100 MCG/2 ML SDV ONE (09:20)
[2020-01-20] MEDS ORDERED: Midazolam 1 MG/ML 2 ML SDV ONE (09:20)
[2020-01-20] MEDS ORDERED: Propofol 200 MG/20 ML SDV ONE (09:21)
[2020-01-20] MEDS ORDERED: Ondansetron 4 MG/2 ML SDV ONE (09:37)
[2020-01-20] MEDS ORDERED: Hydrocortisone Sodium Succinate 100 MG/2 ML SDV IV PRN (11:04)
[2020-01-20] MEDS ORDERED: Famotidine 20 MG/2 ML SDV IV PRN (11:05)
[2020-01-20] MEDS ORDERED: diphenhydrAMINE 50 MG/ML SDV IV PRN (11:05)
[2020-01-20] MEDS ORDERED: Sodium Chloride 0.9% 500 ML IV SCH (11:15)
[2020-01-20] MEDS ORDERED: Cyanocobalamin (Vitamin B12) 1,000 MCG/ML SDV IM ONE (11:15)
[2020-01-20] MEDS ORDERED: Bisacodyl 5 MG Tab PO ONE ×2 (13:00→20:00)
[2020-01-20] MEDS ORDERED: Acetaminophen 650 MG Supp RECTAL PRN (13:03)
[2020-01-20] MEDS ORDERED: Loratadine 10 MG Tab PO PRN (13:31)
[2020-01-20] MEDS ORDERED: Benzonatate 100 MG Cap PO PRN (13:31)
[2020-01-20] MEDS ORDERED: Albuterol 8 GM Inhaler INH PRN (13:31)
[2020-01-20] MEDS: Pantoprazole 40 MG Vial IV SCH (13:49)
--- NOTE | 2020-01-20 13:50 | PCM.HP.2 ---
H&P History of Present Illness - General Date of Service: 01/20/20 Admit Problem/Dx: Admission Diagnosis/Problem Admission Diagnosis/Problem Bleeding from anus Source of Information: Patient History Limitations: Reports: No Limitations - History of Present Illness Initial Comments - Free Text/Narative: Malissa states she has had rectal bleeding for several months. States it is "like a period out of her rectum". This will come and go. Not associated with any foods or activity. Denies any associated signs and symptoms. Onset of Symptoms: Reports: Other (Onset several months ago.) Improves with: Reports: None Worsens with: Reports: None Associated Symptoms: Reports: Other (low hemoglobin of 8.4 in ED this week. ) - Related Data Allergies/Adverse Reactions: Allergies Allergy/AdvReac Type Severity Reaction Status Date / Time hydromorphone [From Dilaudid] Allergy Vomiting Verified 01/20/20 08:30 alprazolam [From Xanax] AdvReac Anxiety Verified 01/20/20 08:30 Penicillins AdvReac Diarrhea Verified 01/20/20 08:30 Home Medications: Home Meds Loratadine [Claritin] 10 mg PO DAILY PRN 07/21/17 [History] busPIRone HCl [busPIRone] 30 mg PO BID 07/28/18 [History] Tiotropium Br/Olodaterol HCl [Stiolto Respimat Inhal [place]] 2 puff INH DAILY 08/07 [History] Citalopram Hydrobromide [Celexa] 40 mg PO DAILY 01/16/19 [History] Pantoprazole [ProTONIX] 40 mg PO DAILY@0730 #30 tab.cr 09/27/19 [Rx] Gabapentin [Neurontin] 900 mg PO TID 01/04/20 [History] Metoprolol Succinate [Toprol Xl] 50 mg PO DAILY 01/04/20 [History] traMADol [Ultram] 50 mg PO TID 01/04/20 [History] Benzonatate [Tessalon Perle] 100 - 200 mg PO QID PRN #40 capsule 01/17/20 [Rx] Albuterol Sulfate [Albuterol Sulfate Hfa] 2 puff INH Q4H PRN 01/19/20 [History] Ibuprofen [Motrin] 600 mg PO Q6H PRN 01/19/20 [History] Past Medical History HEENT History: Reports: Impaired Vision Cardiovascular History: Reports: Arrhythmia, Hypertension, Other (See Below) Other Cardiovascular History: first degree AV block Respiratory History: Reports: Asthma, Bronchitis, Recurrent, COPD, Pneumonia, Recurrent, Other (See Below) Other Respiratory History: fungal pneumonia Gastrointestinal History: Reports: Colon Polyp, Gastritis, GERD, PUD Genitourinary History: Reports: None 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: Endometrial Ablation, Other OB/BYN History: labial cyst Musculoskeletal History: Reports: Back Pain, Chronic, Fracture Other Musculoskeletal History: mid level DJD Psychiatric History: Reports: Anxiety, Panic Attack Endocrine/Metabolic History: Reports: Obesity/BMI 30+ Hematologic History: Reports: Anemia, Blood Transfusion(s), Iron Deficiency - Infectious Disease History Infectious Disease History: Reports: Chicken Pox - Past Surgical History Head Surgeries/Procedures: Reports: None HEENT Surgical History: Reports: None Cardiovascular Surgical History: Reports: None Respiratory Surgical History: Reports: None GI Surgical History: Reports: Cholecystectomy, Colonoscopy, EGD, Hernia, Abdominal Female Surgical History: Reports: Tubal Ligation Endocrine Surgical History: Reports: None Musculoskeletal Surgical History: Reports: Other (See Below) Other Musculoskeletal Surgeries/Procedures:: had radiofrequency facet joint denervation lower lumbar Social & Family History - Family History Family Medical History: Noncontributory - Tobacco Use Smoking Status *Q: Current Every Day Smoker Years of Tobacco use: 25 Packs/Tins Daily: 0.5 - Caffeine Use Caffeine Use: Reports: Coffee, Soda - Recreational Drug Use Recreational Drug Use: No - Living Situation & Occupation Living situation: Reports: Single Occupation: Unemployed H&P Review of Systems - Review of Systems: Review Of Systems: See Below General: Reports: Fatigue HEENT: Reports: No Symptoms Pulmonary: Reports: Shortness of Breath, Wheezing, Cough (Chronic - history of pulmonary blastomycosis ) Cardiovascular: Reports: No Symptoms Gastrointestinal: Reports: Bloody Stool Genitourinary: Reports: No Symptoms Musculoskeletal: Reports: No Symptoms Skin: Reports: No Symptoms Psychiatric: Reports: No Symptoms Neurological: Reports: No Symptoms Hematologic/Lymphatic: Reports: Anemia (low ferritin ) Immunologic: Reports: No Symptoms Exam - Exam Exam: See Below - Vital Signs Vital Signs: Last Vital Signs Temp 97.3 F 01/20/20 13:05 Pulse 65 01/20/20 13:05 Resp 16 01/20/20 13:05 BP 105/55 L 01/20/20 13:05 Pulse Ox 96 01/20/20 13:05 Weight: 197 lb - Exam Quality Assessment: DVT Prophylaxis General: Alert, Oriented HEENT: PERRLA, Conjunctiva Clear, Hearing Intact Neck: Supple, Trachea Midline Lungs: Clear to Auscultation, Normal Respiratory Effort Cardiovascular: Regular Rate, Regular Rhythm GI/Abdominal Exam: Soft, Non-Tender (Female) Exam: Deferred Rectal (Female) Exam: Other (per Dario Bird MD) Extremities: Normal Inspection, Normal Range of Motion, No Pedal Edema Skin: Warm, Dry, Intact Neurological: Cranial Nerves Intact, Reflexes Equal Bilateral Neuro Extensive - Mental Status: Alert, Oriented x3, Normal Mood/Affect, Normal Cognition Neuro Extensive - Motor, Sensory, Reflexes: CN II-XII Intact Psychiatric: Alert, Normal Affect, Normal Mood - Patient Data Lab Results Last 24 hrs: Laboratory Results - last 24 hr 01/20/20 01/20/20 01/20/20 Range/Units 08:26 10:51 10:51 WBC 4.4 L (4.5-11.0) K/uL RBC 3.27 L (3.30-5.50) M/uL Hgb 7.9 L (12.0-15.0) g/dL Hct 26.6 L (36.0-48.0) % MCV 81 (80-98) fL MCH 24 L (27-31) pg MCHC 30 L (32-36) % Plt Count 340 (150-400) K/uL Sodium 137 L (140-148) mmol/L Potassium 3.9 (3.6-5.2) mmol/L Chloride 103 (100-108) mmol/L Carbon Dioxide 26 (21-32) mmol/L Anion Gap 11.9 (5.0-14.0) mmol/L BUN 7 (7-18) mg/dL Creatinine 0.8 (0.6-1.0) mg/dL Est Cr Clr Drug Dosing 82.72 mL/min Estimated GFR (MDRD) > 60 (>60) Glucose 271 H (74-106) mg/dL Calcium 7.7 L (8.5-10.1) mg/dL Phosphorus 2.8 (2.5-4.9) mg/dL Magnesium 2.0 (1.8-2.4) mg/dL Total Bilirubin 0.4 (0.2-1.0) mg/dL AST 29 (15-37) U/L ALT 62 (12-78) U/L Alkaline Phosphatase 105 (46-116) U/L Total Protein 6.1 L (6.4-8.2) g/dL Albumin 2.7 L (3.4-5.0) g/dL Globulin 3.4 (2.3-3.5) g/dL Albumin/Globulin Ratio 0.8 L (1.2-2.2) Vitamin B12 (193-986) pg/ml Folate > 20.0 (8.6-58.9) ng/ml Urine HCG, Qual Negative Blood Type Gel Antibody Screen Crossmatch 01/20/20 01/20/20 Range/Units 10:51 10:51 WBC (4.5-11.0) K/uL RBC (3.30-5.50) M/uL Hgb (12.0-15.0) g/dL Hct (36.0-48.0) % MCV (80-98) fL MCH (27-31) pg MCHC (32-36) % Plt Count (150-400) K/uL Sodium (140-148) mmol/L Potassium (3.6-5.2) mmol/L Chloride (100-108) mmol/L Carbon Dioxide (21-32) mmol/L Anion Gap (5.0-14.0) mmol/L BUN (7-18) mg/dL Creatinine (0.6-1.0) mg/dL Est Cr Clr Drug Dosing mL/min Estimated GFR (MDRD) (>60) Glucose (74-106) mg/dL Calcium (8.5-10.1) mg/dL Phosphorus (2.5-4.9) mg/dL Magnesium (1.8-2.4) mg/dL Total Bilirubin (0.2-1.0) mg/dL AST (15-37) U/L ALT (12-78) U/L Alkaline Phosphatase (46-116) U/L Total Protein (6.4-8.2) g/dL Albumin (3.4-5.0) g/dL Globulin (2.3-3.5) g/dL Albumin/Globulin Ratio (1.2-2.2) Vitamin B12 803 (193-986) pg/ml Folate (8.6-58.9) ng/ml Urine HCG, Qual Blood Type A POSITIVE Gel Antibody Screen Negative Crossmatch See Detail Result Diagrams: 01/20/20 10:51 01/20/20 10:51 Sepsis Event Note - Evaluation Sepsis Screening Result: No Definite Risk - Focused Exam Vital Signs: Vital Signs Temp Temp Pulse Resp BP Pulse Ox 01/20/20 13:05 97.3 F 65 16 105/55 L 96 01/20/20 11:49 73 115/76 01/20/20 11:13 75 16 105/72 01/20/20 10:51 72 16 114/69 97 01/20/20 10:36 76 16 118/68 97 01/20/20 10:21 73 16 127/79 96 01/20/20 10:15 95.2 F L 80 16 136/83 96 01/20/20 10:10 74 16 120/73 98 01/20/20 10:05 76 16 125/76 98 01/20/20 10:00 88 15 108/58 L 98 01/20/20 09:55 95.2 F L 108 H 15 108/61 98 01/20/20 09:00 96.3 F L 82 16 140/81 99 Date Exam was Performed: 01/20/20 Time Exam was Performed: 13:45 - Problem List (1) Rectal bleeding SNOMED Code(s): 19483092 ICD Code: K62.5 - HEMORRHAGE OF ANUS AND RECTUM Status: Acute Current Visit: Yes Problem List Initiated/Reviewed/Updated: Yes Orders Last 24hrs: Active Orders 24 hr Category Date Time Status Admission Status [Patient Status] [ADT] Routine ADT 01/20/20 12:15 Active Communication Order [RC] ASDIRECTED Care 01/20/20 13:12 Active Up ad Tina [RC] ASDIRECTED Care 01/20/20 13:09 Active Verify Patient Consent Obtain [RC] ASDIRECTED Care 01/20/20 13:11 Active Vital Signs [RC] Q4H Care 01/20/20 13:09 Active Clear Liquid Diet [DIET] Diet 01/20/20 Dinner Active NPO After Midnight [Nothing per Oral After Midnight Diet 01/20/20 Dinner Ordered Diet] [DIET] CBC W/O DIFF,HEMOGRAM [HEME] Routine Lab 01/21/20 04:00 Ordered COMPREHENSIVE METABOLIC PN,CMP [CHEM] Routine Lab 01/21/20 04:00 Ordered GLYCOSYLATED HEMOGLOBIN,HGBA1C [CHEM] Routine Lab 01/20/20 13:44 Ordered MAGNESIUM [CHEM] Routine Lab 01/21/20 04:00 Ordered PHOSPHORUS [CHEM] Routine Lab 01/21/20 04:00 Ordered RED BLOOD CELLS LP [BBK] Routine Lab 01/20/20 10:51 Results TYPE AND SCREEN [BBK] Routine Lab 01/20/20 10:51 Results Acetaminophen [Tylenol] Med 01/20/20 13:03 Active 650 mg PO Q4H PRN Acetaminophen [Tylenol] Med 01/20/20 13:03 Active 650 mg RECTAL Q4H PRN Albuterol [Ventolin HFA] Med 01/20/20 13:31 Ordered 2 puff INH Q4H PRN Benzonatate [Tessalon Perles] Med 01/20/20 13:31 Ordered 100 mg PO QID PRN Citalopram Hydrobromide [Celexa] Med 01/20/20 13:45 Ordered 40 mg PO DAILY Dextrose 5%-Lactated Ringers 1,000 ml Med 01/20/20 13:15 Active IV ASDIRECTED Famotidine [Pepcid] Med 01/20/20 11:05 Active 20 mg IV ASDIRECTED PRN Gabapentin [Neurontin] Med 01/20/20 14:00 Ordered 900 mg PO TID Hydrocortisone Sod Succinate [Solu-CORTEF] Med 01/20/20 11:04 Active 100 mg IV ASDIRECTED PRN Loratadine [Claritin] Med 01/20/20 13:31 Ordered 10 mg PO DAILY PRN Metoprolol Succinate [Toprol XL] Med 01/21/20 09:00 Ordered 50 mg PO DAILY Pantoprazole [ProTONIX IV] Med 01/20/20 14:00 Active 40 mg IV Q12H Tiotropium Br/Olodaterol HCl [Stiolto Respimat Inhal Med 01/21/20 09:00 Ordered [place]] 2 puff INH DAILY bisacodyL [Dulcolax] Med 01/20/20 20:00 Once 10 mg PO ONETIME ONE busPIRone HCl [busPIRone] Med 01/20/20 21:00 Ordered 30 mg PO BID diphenhydrAMINE [Benadryl] Med 01/20/20 11:05 Active 50 mg IV ASDIRECTED PRN polyethylene glycoL 3350 [MiraLAX] Med 01/20/20 17:00 Once 238 gm PO ONETIME ONE traMADol [Ultram] Med 01/20/20 13:31 Ordered 50 mg PO TID PRN Sequential Compression Device [OM.PC] Routine Oth 01/20/20 13:11 Ordered Transfuse Red Blood Cells [COMM] Routine Oth 01/20/20 13:18 Ordered Medication Orders Acetaminophen (Tylenol) 650 mg PO Q4H PRN PRN Reason: FEVER/PAIN Acetaminophen (Tylenol) 650 mg RECTAL Q4H PRN PRN Reason: FEVER/PAIN Albuterol (Ventolin Hfa) gm INH Q4H PRN PRN Reason: dypnea Benzonatate (Tessalon Perles) 100 mg PO QID PRN PRN Reason: Cough Bisacodyl (Dulcolax) 10 mg PO ONETIME ONE Stop: 01/20/20 20:01 Diphenhydramine HCl (Benadryl) 50 mg IV ASDIRECTED PRN PRN Reason: ALLERGIES Stop: 01/20/20 16:00 Famotidine (Pepcid) 20 mg IV ASDIRECTED PRN PRN Reason: ALLERIGES Stop: 01/20/20 16:00 Gabapentin (Neurontin) 900 mg PO TID ARIEL Hydrocortisone Sodium Succinate (Solu-Cortef) 100 mg IV ASDIRECTED PRN PRN Reason: ALLERGIES Stop: 01/20/20 16:00 Dextrose/Lactated Ringer's (Dextrose 5%-Lactated Ringers) 1,000 mls @ 125 mls/ hr IV ASDIRECTED ARIEL Loratadine (Claritin) 10 mg PO DAILY PRN PRN Reason: Allergies Metoprolol Succinate (Toprol Xl) 50 mg PO DAILY ARIEL Non-Formulary Medication (Buspirone Hcl [Buspirone]) 30 mg PO BID ARIEL Non-Formulary Medication (Citalopram Hydrobromide [Celexa]) 40 mg PO DAILY ARIEL Non-Formulary Medication (Tiotropium Br/Olodaterol Hcl [Stiolto Respimat Inhal [place]]) 2 puff INH DAILY ARIEL Pantoprazole Sodium (Protonix Iv) 40 mg IV Q12H ARIEL Polyethylene Glycol (Miralax) 238 gm PO ONETIME ONE Stop: 01/20/20 17:01 Tramadol HCl (Ultram) 50 mg PO TID PRN PRN Reason: Pain Assessment/Plan Comment:: Assessment: Rectal Bleeding Anemia - hemoglobin 7.9 Low Ferritin Pulmonary Blastomyocosis Reactive Airway Disease with wheezing First Degree Atrioventricular block Lumbar degenerative disease Arthritis low back Nicotine Addiction Anxiety and Depression Plan: Admit to Dario Bird MD Plan to give colon prep today and to repeat colonoscopy in AM Type and Cross 2 units of RBCs Give 2 Units of RBCs today Repeat Colonoscopy in AM - in adequate prep Check CBC 2 hours after second unit of blood has been transfused. Check labs in AM - CBC, CMP, Magnesium and Phosphorous Home meds were ordered. Plan is to have a proctoplexy on 01/22/2020 if colonoscopy is negative. Hospital Stay would be estimated at 2 - 3 nights and 3 - 4 days. Rena Case
[2020-01-20 14:43] LABS: HEMOGLOBIN A1C 6.7 % (4.5-6.2)
[2020-01-20] MEDS: Citalopram 20 MG Tab PO SCH (15:45)
[2020-01-20] MEDS: Gabapentin 300 MG Cap PO SCH ×2 (15:45→21:05)
[2020-01-20] MEDS ORDERED: Polyethylene Glycol 3350 Powder 238 GM Bot PO ONE (17:00)
[2020-01-20] MEDS: traMADol 50 MG Tab PO PRN (19:43)
[2020-01-20] MEDS: Melatonin 3 MG Tab PO SCH (21:03)
[2020-01-20] MEDS: Acetaminophen 325 MG Tab PO PRN (21:03)
[2020-01-20] MEDS: busPIRone 10 MG Tab PO SCH (21:04)
[2020-01-20] MEDS: Dextrose 5%-Lactated Ringers 1,000 ML IV SCH (21:16)
[2020-01-21] MEDS: Pantoprazole 40 MG Vial IV SCH ×2 (02:44→14:17)
[2020-01-21] MEDS: Dextrose 5%-Lactated Ringers 1,000 ML IV SCH ×2 (05:10→17:50)
[2020-01-21] MEDS: Acetaminophen 325 MG Tab PO PRN ×2 (07:21→19:51)
[2020-01-21] MEDS: traMADol 50 MG Tab PO PRN (07:21)
[2020-01-21] MEDS: Indacaterol/Glycopyrrolate 1 EA Cap.W.Dev Kit of 6 IH SCH ×2 (07:22→20:47)
[2020-01-21] MEDS: Citalopram 20 MG Tab PO SCH (08:57)
[2020-01-21] MEDS: busPIRone 10 MG Tab PO SCH ×2 (08:57→20:47)
[2020-01-21] MEDS: Metoprolol Succinate 50 MG Tab.ER PO SCH (08:58)
[2020-01-21] MEDS: Gabapentin 300 MG Cap PO SCH ×3 (08:58→20:47)
[2020-01-21] MEDS ORDERED: Propofol 200 MG/20 ML SDV ONE (10:15)
[2020-01-21] MEDS ORDERED: fentaNYL 100 MCG/2 ML SDV ONE (10:15)
[2020-01-21] MEDS ORDERED: Midazolam 1 MG/ML 2 ML SDV ONE (10:16)
--- NOTE | 2020-01-21 11:39 | PN ---
DATE OF SERVICE: 01/21/2020 SUBJECTIVE: Malissa has had no further rectal bleeding. She got 2 units of packed red blood cells yesterday. Hemoglobin this morning was 10.2. Hemoglobin A1c was 6.7, and her blood sugar this morning was 134. The colon prep was repeated and she is having clear stools. REVIEW OF SYSTEMS: Remainder of review of systems negative for any pertinent positives and negatives. OBJECTIVE: GENERAL: Malissa Francis is a pleasant 49-year-old female. Alert, orientated. VITAL SIGNS: TPR at 0700, 99; 75; 16; blood pressure 139/82. HEENT: Negative. NECK: Supple. HEART: Regular rate and rhythm. LUNGS: Clear. ABDOMEN: Soft, nontender. EXTREMITIES: Without peripheral edema. ASSESSMENT: 1. Rectal bleeding, anemia, requiring 2 units of packed red blood cells. 2. Low ferritin. 3. Pulmonary blastomycosis. 4. Reactive airway disease. 5. First degree AV block. 6. Lumbar degenerative disease. 7. Arthritis. 8. Nicotine addiction. 9. Anxiety and depression. PLAN: 1. Hemoglobin A1c was 6.7. Check Accu-Cheks q.i.d. and at bedtime. 2. Sliding scale insulin. 3. Orders to be written post colonoscopy. 4. We will evaluate p.r.n. or in a.m. Rena Ocampo PA-C /[id number]
[2020-01-21] MEDS ORDERED: Ondansetron 4 MG/2 ML SDV ONE (11:56)
[2020-01-21] MEDS ORDERED: Lactated Ringers 1,000 ML ONE (12:02)
[2020-01-21] MEDS: Insulin Lispro 100 Unit/ML 3 ML KwikPen SUBCUT SCH ×3 (13:14→21:31)
[2020-01-21] MEDS: Melatonin 3 MG Tab PO SCH (20:47)
[2020-01-22] MEDS: Pantoprazole 40 MG Vial IV SCH (01:45)
[2020-01-22] MEDS: Dextrose 5%-Lactated Ringers 1,000 ML IV SCH (01:46)
[2020-01-22] MEDS: Acetaminophen 325 MG Tab PO PRN ×3 (04:58→20:36)
[2020-01-22] MEDS ORDERED: Bupivacaine 0.5%/EPINEPHrine 1:200,000 50 ML MDV ONE (06:25)
[2020-01-22] MEDS ORDERED: fentaNYL 250 MCG/5 ML SDV ONE (07:14)
[2020-01-22] MEDS ORDERED: Dexamethasone 4 MG/ML SDV ONE (07:14)
[2020-01-22] MEDS ORDERED: Propofol 200 MG/20 ML SDV ONE (07:14)
[2020-01-22] MEDS ORDERED: Neostigmine Methylsulfate 1 MG/ML 5 ML Syringe ONE (07:14)
[2020-01-22] MEDS ORDERED: Rocuronium 50 MG/5 ML Vial ONE (07:14)
[2020-01-22] MEDS ORDERED: Ondansetron 4 MG/2 ML SDV ONE (07:14)
[2020-01-22] MEDS ORDERED: Succinylcholine 200 MG/10 ML MDV ONE (07:14)
[2020-01-22] MEDS ORDERED: Glycopyrrolate 0.2 MG/ML 5 ML MDV ONE (07:14)
[2020-01-22] MEDS: Indacaterol/Glycopyrrolate 1 EA Cap.W.Dev Kit of 6 IH SCH ×2 (07:36→22:05)
[2020-01-22] MEDS: Insulin Lispro 100 Unit/ML 3 ML KwikPen SUBCUT SCH ×4 (07:55→21:53)
[2020-01-22] MEDS ORDERED: Meropenem 500 MG in Sodium Chloride 0.9% 50 ML IV ONE (08:00)
[2020-01-22] MEDS: Gabapentin 300 MG Cap PO SCH ×3 (08:01→20:36)
[2020-01-22] MEDS: Metoprolol Succinate 50 MG Tab.ER PO SCH (08:02)
[2020-01-22] MEDS: busPIRone 10 MG Tab PO SCH ×2 (08:02→20:37)
[2020-01-22] MEDS: Citalopram 20 MG Tab PO SCH (08:02)
[2020-01-22] MEDS ORDERED: Sodium Ferric Gluconate Cmplex 250 MG in Sodium Chloride 0.9% 100 ML IV ONE (12:00)
[2020-01-22] MEDS: oxyCODONE 5 MG Tab PO PRN ×3 (12:34→23:59)
[2020-01-22] MEDS: Meropenem 500 MG in Sodium Chloride 0.9% 50 ML IV SCH ×2 (14:58→19:47)
[2020-01-22] MEDS: Docusate Sodium 100 MG Cap PO SCH ×2 (14:59→20:37)
[2020-01-22] MEDS: Potassium Chloride 20 MEQ Tab.ER PO SCH ×2 (14:59→20:36)
[2020-01-22] MEDS: Magnesium Sulfate/Water 2 GM in Premix Bag 1 BAG IV SCH ×2 (16:08→20:35)
[2020-01-22] MEDS: traMADol 50 MG Tab PO PRN (16:17)
[2020-01-22] MEDS: Pantoprazole 40 MG Tab.CR PO SCH (16:21)
[2020-01-22] MEDS: Melatonin 3 MG Tab PO SCH (20:36)
[2020-01-23] MEDS: Meropenem 500 MG in Sodium Chloride 0.9% 50 ML IV SCH ×2 (02:15→08:17)
[2020-01-23] MEDS: traMADol 50 MG Tab PO PRN (03:29)
[2020-01-23] MEDS: Magnesium Sulfate/Water 2 GM in Premix Bag 1 BAG IV SCH ×2 (03:30→09:46)
[2020-01-23] MEDS: oxyCODONE 5 MG Tab PO PRN (04:09)
[2020-01-23] MEDS: Indacaterol/Glycopyrrolate 1 EA Cap.W.Dev Kit of 6 IH SCH (07:34)
[2020-01-23] MEDS: Insulin Lispro 100 Unit/ML 3 ML KwikPen SUBCUT SCH ×2 (08:08→11:41)
[2020-01-23] MEDS: busPIRone 10 MG Tab PO SCH (08:10)
[2020-01-23] MEDS: Pantoprazole 40 MG Tab.CR PO SCH (08:10)
[2020-01-23] MEDS: Citalopram 20 MG Tab PO SCH (08:10)
[2020-01-23] MEDS: Gabapentin 300 MG Cap PO SCH (08:11)
[2020-01-23] MEDS: Metoprolol Succinate 50 MG Tab.ER PO SCH (08:12)
[2020-01-23 10:53] VITALS: BP 132/88; PULSE 71
[2020-01-23] MEDS: Docusate Sodium 100 MG Cap PO SCH (11:57)
--- NOTE | 2020-01-24 13:40 | DISCH ---
FINAL DIAGNOSES: 1. Severe iron-deficiency anemia, secondary to bleeding hemorrhoids. 2. Generalized rectal prolapse with severe engorged and bleeding hemorrhoids. 3. Type 2 diabetes mellitus, not presently on treatment. 4. History of chronic obstructive pulmonary disease. 5. Tobacco dependence. 6. History of pulmonary blastomycosis. 7. History of asthma. 8. History of first-degree AV block. 9. History of gastroesophageal reflux disease. OPERATIVE PROCEDURE: On 01/19, flexible colonoscopy that was not entirely completed due to poor prep. Then on 01/20, flexible colonoscopy. Then, on 01/21, proctopexy via perineal approach along with hemorrhoidectomy. SUMMARY: This is a 49-year-old presenting with severe anemia with hemoglobin in the 8 range and with a very low ferritin. Following hydration, her hemoglobin was in the 7 range. The patient did end up receiving a total of 3 units packed RBCs. Initially, the patient underwent a colonoscopy, which was not entirely completed due to very poor prep. She was admitted for bowel prep and had a satisfactory colonoscopy on 01/20, which showed only the severe hemorrhoidal disease along with rectal prolapse. On 01/21, the patient underwent the proctopexy and hemorrhoidectomy. She had a fair bit of pain and discomfort, but this appeared to be controlled reasonably well. The patient wishes to go home at this time. She will be discharged home on her usual medications plus Percocet 5/325, 1 tablet q.4 hours p.r.n. pain, #40; Colace 100 mg p.o. b.i.d. x1 month and then p.r.n.; Nupercainal ointment to anal area t.i.d., and 3 doses of milk of magnesia, which will be sent home with the patient. She will be instructed to take ibuprofen 400 to 600 mg q.i.d. as well, and she has some of that already at home. She will be sent home with a tube of Nupercainal ointment and multiple other prescription otherwise, functioning satisfactorily. The patient will be following up with Dr. Bird at [facility] on 02/02/2020 with a CBC, ferritin, BMP, B12 levels at that appointment.
--- NOTE | 2020-01-24 13:49 | PN ---
DATE OF SERVICE: 01/21/2020 The patient underwent a colonoscopy today and did have a good prep. No polyps or other problems were seen other than the rectal prolapse and large grossly distended hemorrhoid. It is possible this may be more of a solid mass, but will best be resected with a stapled proctopexy. Potential risks of the procedure were reviewed with the patient and she wishes to proceed. Surgery will be undertaken tomorrow morning. Dario Bird MD /[id number]
--- NOTE | 2020-01-26 14:00 | OR ---
DATE OF PROCEDURE: 01/22/2020 SURGEON: Dario Bird MD PREOPERATIVE DIAGNOSIS: Rectal prolapse with extensive hemorrhoidal bleeding. PROCEDURES: 1. Proctopexy via peritoneal approach (06696). 2. Hemorrhoidectomy (32249). ANESTHESIA: General. INDICATIONS FOR PROCEDURE: The patient presents with severe hemorrhoid bleeding, being admitted with hemoglobin in the 7.5 range, requiring transfusions. Workup included colon pathology other than the hemorrhoid issue and associated rectal prolapse. The rectal prolapse was circumferential and includes significant degree of muscular prolapse in addition to the mucosal prolapse. Plan is to proceed with a proctopexy via peritoneal approach and then hemorrhoidectomy removing the columns that appear to be prone to bleeding. Potential risks of the procedure including bleeding, infection, possible problems with fecal incontinence following the procedure along with remote possibility of cardiopulmonary, septic, or hemorrhagic complications leading to were all discussed, and the patient wishes to proceed. DETAILS OF PROCEDURE: The patient was taken to the operating room and placed in a supine position. After general endotracheal anesthesia was induced, she was converted to a lithotomy position and the perianal prep performed. Initial anoscopic examination confirmed the colonoscopy findings seen yesterday. Following this, a pursestring stitch of 3-0 Prolene stitch was placed at a point roughly 4 cm above the dentate line. placed circumferentially. The proctopexy stapler was inserted, and after confirming there is no pinching of the vagina, . Upon its removal, there was a circumferential area of rectal mucosa excised and there appeared to be a very good upward positioning of the anorectal area and the prolapse appeared to be well treated. At this point, 2 larger hemorrhoidal columns were excised and suture ligated with 3-0 Vicryl stitch. Two other smaller areas that were quite engorged were treated by figure- of-eight stitches and left in place so as to minimize the amount of vaginal mucosal excision and potential complications related to that. At this point, the area was anesthetized with 0.5% Marcaine and the procedure concluded. The patient was taken to the recovery room in satisfactory condition. Dario Bird MD /[id number]
--- NOTE | 2020-01-26 14:29 | OR ---
DATE OF PROCEDURE: 01/21/2020 SURGEON: Dario Bird MD PREOPERATIVE DIAGNOSIS: Rectal bleeding. POSTOPERATIVE DIAGNOSES: Rectal bleeding secondary to rectal prolapse with associated excoriated hemorrhoids. OPERATIVE PROCEDURE: Flexible colonoscopy. ANESTHESIA: IV sedation. INDICATION FOR PROCEDURE: The patient admitted yesterday for colonoscopy. A colonoscopy was attempted but was not able to be completed due to very poor prep. She was admitted with a hemoglobin of 7.5 due to ongoing rectal bleeding and received some transfusions and underwent a repeat bowel prep to undergo colonoscopy. Potential risks of procedure including bleeding and perforation were discussed, and the patient wishes to proceed. DETAILS OF PROCEDURE: The patient was taken to the operating room and placed in the left lateral decubitus position. IV sedation was administered, after which the initial digital rectal exam was performed. As noted, she had significant rectal prolapse and visible excoriated hemorrhoids, one of which would likely be bleeding site. As we passed colonoscope and retroflexed, this was confirmed as well. Otherwise, scope was passed to the level of the cecum. The prep today was very good and there was no evident additional pathology, no polyps or any signs of neoplasia. No colitis or diverticula. Scope was then withdrawn and the procedure was then concluded. The plan at this point will be to proceed with a proctopexy procedure tomorrow to address prolapse along with a focused hemorrhoidectomy to control the overall problem which we discussed with the patient later on today. Dario Bird MD /[id number]
--- NOTE | 2020-01-29 09:11 | OR ---
DATE OF PROCEDURE: 01/20/2020 SURGEON: Dario Bird MD PREOPERATIVE DIAGNOSES: 1. Rectal prolapse with excoriated hemorrhoids. 2. Normal colonic examination of transverse colon but with extremely poor prep. OPERATIVE PROCEDURES: Flexible colonoscopy to local transverse colon. INDICATION FOR PROCEDURE: This is a 49-year-old presenting with ongoing episodes of rectal bleeding. Hemoglobin today is noted to be at 7.9 and last week, her ferritin levels were noted to be extremely low. Our plan is to proceed with flexible colonoscopy with biopsies and polypectomy as indicated. Potential risks including bleeding and perforation were discussed, and the patient wishes to proceed. DETAILS OF PROCEDURE: The patient was taken to the operating room and placed in left lateral decubitus position. Initial external anal examination showed some extensive circumferential rectal prolapse with acute two columns of hemorrhoids which were extremely excoriated, one of which had tendency to bleed somewhat on manipulation. The scope was then passed into the rectum with retroflexion revealing the excoriated hemorrhoid columns once again. The prep in this case was extremely poor. We were able to get to the mid transverse colon, but to that level, the large surfaces were not well seen. Given this, the scope then was withdrawn and the procedure then concluded. Apart from the excoriated hemorrhoids and rectal polyps, no additional pathology was seen. Plan will be to admit the patient for transfusion of packed RBCs today and then we will redo her prep and repeat colonoscopy tomorrow hopefully with a better prep. Dario Bird MD /[id number]
== END 2020-01-23 12:20 | disposition home or self-care (01) | DRG 330 ==
LOC: JP.SDS 08:15 → JP.MS 08:15 → EDSTATUS 10:15 → JP.MS 12:40
PROVIDERS: ADMIT Surgery; ATTEND Surgery
PROC: 30233N1 Transfusion of Nonautologous Red Blood Cells into Peripheral Vein, Percutaneous Approach (ICD-10-PCS; principal; 2020-01-20)
PROC: 0DJD8ZZ Inspection of Lower Intestinal Tract, Via Natural or Artificial Opening Endoscopic (ICD-10-PCS; 2020-01-20)
PROC: 0DQP0ZZ Repair Rectum, Open Approach (ICD-10-PCS; 2020-01-21)
PROC: 06BY0ZC Excision of Hemorrhoidal Plexus, Open Approach (ICD-10-PCS; 2020-01-21)
PROC: 0DJD8ZZ Inspection of Lower Intestinal Tract, Via Natural or Artificial Opening Endoscopic (ICD-10-PCS; 2020-01-21)
DX: K62.3 Rectal prolapse (principal); B40.1 Chronic pulmonary blastomycosis; K64.8 Other hemorrhoids; D50.0 Iron deficiency anemia secondary to blood loss (chronic); E11.9 Type 2 diabetes mellitus without complications; J44.9 Chronic obstructive pulmonary disease, unspecified; F17.210 Nicotine dependence, cigarettes, uncomplicated; I44.0 Atrioventricular block, first degree; K21.9 Gastro-esophageal reflux disease without esophagitis; H54.7 Unspecified visual loss; I10 Essential (primary) hypertension; G89.29 Other chronic pain; M54.9 Dorsalgia, unspecified; F41.0 Panic disorder [episodic paroxysmal anxiety]; E66.9 Obesity, unspecified; F32.9 Major depressive disorder, single episode, unspecified; M51.36 Other intervertebral disc degeneration, lumbar region; Z88.0 Allergy status to penicillin; Z88.8 Allergy status to other drugs, medicaments and biological substances; Z87.11 Personal history of peptic ulcer disease; Z86.010 Personal history of colon polyps; Z87.01 Personal history of pneumonia (recurrent); Z98.51 Tubal ligation status; Z90.49 Acquired absence of other specified parts of digestive tract; Z68.39 Body mass index [BMI] 39.0-39.9, adult
CPT/HCPCS: 36415; 36430; 80053; 81025; 82607; 82746; 82962; 83036; 83735; 84100; 85027; 86850; 86900; 86901; 86920; 86922; 88304; 88305; 94640; A9270-GY; C9113; J0330; J1100; J1790; J1815; J2185; J2250; J2405; J2704; J2710; J2916; J3010; J3420; J3475; J3490; J7040; J7050; J7120; J7121; P9016; Q0138

== ENCOUNTER 2020-03-18 23:29 | Emergency (ER) | payer MEDICAID ==
[2020-03-18 23:40] VITALS: BP 129/85; PULSE 88
--- NOTE | 2020-03-19 00:16 | EDM.PDOC ---
ED HPI GENERAL MEDICAL PROBLEM - General Chief Complaint: Cardiovascular Problem Stated Complaint: MEDICAL VIA [facility] Time Seen by Provider: 03/18/20 23:45 Source of Information: Reports: Patient, RN, RN Notes Reviewed History Limitations: Reports: No Limitations - History of Present Illness INITIAL COMMENTS - FREE TEXT/NARRATIVE: Malissa is a 49 yo female that comes to ER via EMS for concerns of her blood pressure. She states that her PCP is weaning her beta familia down and increasing her lisinopril. She is not sure of the exact reason of why her PCP is making these changes but thinks it's due to "QT interval prolongation". She also has a four day history of a headache that feels like "someone is squeezing my head from both sides" and associated neck tightness. She currently rates her headache 04/28 and says there are no alleviating or aggravating factors. Denies any nausea or vomiting, vision changes, or muscle weakness. Malissa has tried 600mg ibuprofen without relief. Appetite is good and no concerns with bowel or bladder. Onset: Gradual Duration: Day(s): (4) Location: Reports: Head Quality: Reports: Other (squeezing) Severity: Severe Improves with: Reports: None Worsens with: Reports: None Associated Symptoms: Reports: No Other Symptoms general headache Pain Score (Numeric/FACES): 7 - Related Data Allergies Allergy/AdvReac Type Severity Reaction Status Date / Time hydromorphone [From Dilaudid] Allergy Vomiting Verified 03/19/20 00:21 alprazolam [From Xanax] AdvReac Anxiety Verified 03/19/20 00:21 Penicillins AdvReac Diarrhea Verified 03/19/20 00:21 Home Meds: Home Meds RX: Loratadine [Claritin] 10 mg PO DAILY PRN 07/21/17 [History] RX: busPIRone HCl [busPIRone] 30 mg PO BID 07/28/18 [History] RX: Tiotropium Br/Olodaterol HCl [Stiolto Respimat Inhal Recl[place]] 2 puff INH DAILY 12/27/18 [History] RX: Citalopram Hydrobromide [Celexa] 40 mg PO DAILY 01/16/19 [History] RX: Pantoprazole [ProTONIX] 40 mg PO DAILY@0730 #30 tab.cr 09/27/19 [Rx] RX: Gabapentin [Neurontin] 900 mg PO TID 01/04/20 [History] RX: Metoprolol Succinate [Toprol Xl] 50 mg PO DAILY 01/04/20 [History] RX: traMADol [Ultram] 50 mg PO TID 01/04/20 [History] RX: Benzonatate [Tessalon Perle] 100 - 200 mg PO QID PRN #40 capsule 01/17/20 [ Rx] RX: Albuterol Sulfate [Albuterol Sulfate Hfa] 2 puff INH Q4H PRN 01/19/20 [ History] RX: Ibuprofen [Motrin] 600 mg PO Q6H PRN 01/19/20 [History] Acetaminophen/oxyCODONE [Percocet 325-5 MG] 1 each PO Q4H #40 tab 01/23/20 [Rx] Dibucaine [Nupercainal] 60 gm RC TID #60 oint...g. 01/23/20 [Rx] Docusate Sodium [Colace] 100 mg PO BID #60 cap 01/23/20 [Rx] RX: Indacaterol/Glycopyrrolate [Utibron Neohaler 27.5-15.6 MCG] 0 each IH BIDRT kit 01/23/20 [Rx] Past Medical History HEENT History: Reports: Impaired Vision Cardiovascular History: Reports: Arrhythmia, Hypertension, Other (See Below) Other Cardiovascular History: first degree AV block Respiratory History: Reports: Asthma, Bronchitis, Recurrent, COPD, Pneumonia, Recurrent, Other (See Below) Other Respiratory History: fungal pneumonia Gastrointestinal History: Reports: Colon Polyp, Gastritis, GERD, PUD Genitourinary History: Reports: None 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: Endometrial Ablation, 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 REED PRESS FEEDER History: labial cyst Musculoskeletal History: Reports: Back Pain, Chronic, Fracture Other Musculoskeletal History: mid level DJD Psychiatric History: Reports: Anxiety, Panic Attack Endocrine/Metabolic History: Reports: Obesity/BMI 30+ Hematologic History: Reports: Anemia, Blood Transfusion(s), Iron Deficiency - Infectious Disease History Infectious Disease History: Reports: Chicken Pox - Past Surgical History Head Surgeries/Procedures: Reports: None HEENT Surgical History: Reports: None Cardiovascular Surgical History: Reports: None Respiratory Surgical History: Reports: None GI Surgical History: Reports: Cholecystectomy, Colonoscopy, EGD, Hernia, Abdominal Female Surgical History: Reports: Tubal Ligation Endocrine Surgical History: Reports: None Musculoskeletal Surgical History: Reports: Other (See Below) Other Musculoskeletal Surgeries/Procedures:: had radiofrequency facet joint denervation lower lumbar Social & Family History - Family History Family Medical History: Noncontributory - Caffeine Use Caffeine Use: Reports: Coffee, Soda - Living Situation & Occupation Living situation: Reports: Single Occupation: Unemployed ED ROS GENERAL - Review of Systems Review Of Systems: Comprehensive ROS is negative, except as noted in HPI. ED EXAM, GENERAL - Physical Exam Exam: See Below Exam Limited By: No Limitations General Appearance: Alert, No Apparent Distress Eye Exam: Bilateral Eye: PERRL Ears: Normal External Exam, Normal Canal, Hearing Grossly Normal, Normal TMs Nose: Normal Inspection, Normal Mucosa Throat/Mouth: Normal Inspection, Normal Oropharynx Head: Atraumatic, Normocephalic Neck: Normal Inspection, Supple, Non-Tender Respiratory/Chest: No Respiratory Distress, Lungs Clear, Normal Breath Sounds Cardiovascular: Regular Rate, Rhythm, No Murmur GI/Abdominal: Normal Bowel Sounds, Soft, Non-Tender, No Organomegaly (Female) Exam: Deferred Rectal (Female) Exam: Deferred Extremities: Normal Inspection Neurological: Alert, Oriented Skin Exam: Warm, Dry Lymphatic: No Adenopathy Course - Vital Signs Last Recorded V/S: Last Vital Signs Temp 97.7 F 03/19/20 00:06 Pulse 88 03/19/20 00:06 Resp 16 03/19/20 00:06 BP 129/85 03/19/20 00:06 Pulse Ox 96 03/19/20 00:06 - Orders/Labs/Meds Labs: Laboratory Tests 03/19/20 Range/Units 00:40 Urine Color Yellow (YELLOW) Urine Appearance Slightly cloudy A (CLEAR) Urine pH 6.0 (5.0-8.0) Ur Specific [place] >= 1.030 (1.008-1.030) Urine Protein Negative (NEGATIVE) mg/dL Urine Glucose (UA) Negative (NEGATIVE) mg/dL Urine Ketones Negative (NEGATIVE) mg/dL Urine Occult Blood Negative (NEGATIVE) Urine Nitrite Negative (NEGATIVE) Urine Bilirubin Negative (NEGATIVE) Urine Urobilinogen 0.2 (0.2-1.0) EU/dL Ur Leukocyte Esterase Negative (NEGATIVE) Urine RBC 0-5 (0-5) Urine WBC 0-5 (0-5) Ur Epithelial Cells Few Amorphous Sediment Not seen Urine Bacteria Few Urine Mucus Not seen Meds: Medications Discontinued Medications Generic Name Dose Route Start Last Admin Trade Name Jayna PRN Reason Stop Dose Admin Diphenhydramine HCl 50 mg 03/19/20 00:20 03/19/20 00:43 Benadryl IVPUSH 03/19/20 00:21 50 mg ONETIME ONE Administration Sodium Chloride 1,000 mls @ 500 mls/hr 03/19/20 00:30 03/19/20 00:35 Normal Saline IV 500 mls/hr ASDIRECTED ARIEL Administration Ketorolac Tromethamine 30 mg 03/19/20 00:20 03/19/20 00:41 Toradol IVPUSH 03/19/20 00:21 30 mg ONETIME ONE Administration Prochlorperazine Edisylate 5 mg 03/19/20 00:20 03/19/20 00:37 Compazine IVPUSH 03/19/20 00:21 5 mg ONETIME ONE Administration Sodium Chloride 10 ml 03/19/20 00:20 03/19/20 00:43 Saline Flush FLUSH 10 ml ASDIRECTED PRN Administration Keep Vein Open - Re-Assessments/Exams Free Text/Narrative Re-Assessment/Exam: 03/19/20 01:12 Patient sleeping- needed to be shook awake. Patient still rating her headache at 7/10. 03/19/20 01:29 Patient now rates her pain 0/10 03/23/20 18:11 Free Text/Narrative Re-Assessment/Exam: 03/19/20 02:17 Malissa is sleeping in her room. no further complaints of headache Departure - Departure Time of Disposition: 02:20 Disposition: Home, Self-Care 01 Clinical Impression: Headache, acute, Dehydration Instructions: General Headache Without Cause Referrals: PCP,None [Primary Care Provider] - Forms: ED Department Discharge Care Plan Goals: continue your scheduled medications. follow-up with your PCP in 3-5 days. Return to ED with any worsening of symptoms or concerns Sepsis Event Note - Focused Exam Date Exam was Performed: 03/23/20 Time Exam was Performed: 18:10 - Assessment/Plan Assessment:: Pt received migraine treatment of: IVP toradol, benadryl, and compazine with relief. UA is negative. IVF given for dehydration. Plan: plan to discharge home. f/u with PCP in 3-5 days and return to ED with any worsening of symptoms
[2020-03-19] MEDS ORDERED: diphenhydrAMINE 50 MG/ML SDV IVPUSH ONE (00:20)
[2020-03-19] MEDS ORDERED: Ketorolac 30 MG/ML SDV IVPUSH ONE (00:20)
[2020-03-19] MEDS ORDERED: Sodium Chloride 0.9% 10 ML Syringe FLUSH PRN (00:20)
[2020-03-19] MEDS ORDERED: Prochlorperazine 10 MG/2 ML SDV IVPUSH ONE (00:20)
[2020-03-19] MEDS ORDERED: Sodium Chloride 0.9% 1,000 ML IV SCH (00:30)
== END 2020-03-19 07:21 | disposition home or self-care (01) ==
LOC: JP.ED 23:29
DX: E86.0 Dehydration (principal); I10 Essential (primary) hypertension; J44.9 Chronic obstructive pulmonary disease, unspecified; K21.9 Gastro-esophageal reflux disease without esophagitis; F41.9 Anxiety disorder, unspecified; E66.9 Obesity, unspecified; Z68.30 Body mass index [BMI] 30.0-30.9, adult; Z88.5 Allergy status to narcotic agent; Z88.0 Allergy status to penicillin; Z88.8 Allergy status to other drugs, medicaments and biological substances
CPT/HCPCS: 81001; 96361; 96374; 96375; 99284; J0780; J1200; J1885; J7030

== ENCOUNTER 2020-03-20 23:30 | Emergency (ER) | payer MEDICAID ==
[2020-03-20 23:38] VITALS: BP 142/91; PULSE 90
[2020-03-20] MEDS ORDERED: LORazepam 1 MG Tab PO ONE (23:47)
--- NOTE | 2020-03-20 23:51 | EDM.PDOC ---
ED HPI GENERAL MEDICAL PROBLEM - General Chief Complaint: General Stated Complaint: MEDICAL VIA [facility] Time Seen by Provider: 03/20/20 23:38 Source of Information: Reports: Patient, Old Records, RN Notes Reviewed History Limitations: Reports: No Limitations - History of Present Illness INITIAL COMMENTS - FREE TEXT/NARRATIVE: 49-year-old female presents emergency department a complaint of chest pain, she states about 6 hours ago it started she was at rest she describes it as a constant pressure there is an increase in tenderness when you push on her chest she does feel short of breath with the pain no nausea no diaphoresis she has no cardiac history she does use tobacco products and she does admit that her anxiety is quite high at this time - Related Data Allergies Allergy/AdvReac Type Severity Reaction Status Date / Time hydromorphone [From Dilaudid] Allergy Vomiting Verified 03/19/20 00:21 alprazolam [From Xanax] AdvReac Anxiety Verified 03/19/20 00:21 Penicillins AdvReac Diarrhea Verified 03/19/20 00:21 Home Meds: Home Meds Loratadine [Claritin] 10 mg PO DAILY PRN 07/21/17 [History] busPIRone HCl [busPIRone] 30 mg PO BID 07/28/18 [History] Tiotropium Br/Olodaterol HCl [Stiolto Respimat Inhal [place]] 2 puff INH DAILY 08/07 [History] Citalopram Hydrobromide [Celexa] 40 mg PO DAILY 01/16/19 [History] Pantoprazole [ProTONIX] 40 mg PO DAILY@0730 #30 tab.cr 09/27/19 [Rx] Gabapentin [Neurontin] 900 mg PO TID 01/04/20 [History] Metoprolol Succinate [Toprol Xl] 50 mg PO DAILY 01/04/20 [History] traMADol [Ultram] 50 mg PO TID 01/04/20 [History] Benzonatate [Tessalon Perle] 100 - 200 mg PO QID PRN #40 capsule 01/17/20 [Rx] Albuterol Sulfate [Albuterol Sulfate Hfa] 2 puff INH Q4H PRN 01/19/20 [History] Ibuprofen [Motrin] 600 mg PO Q6H PRN 01/19/20 [History] Acetaminophen/oxyCODONE [Percocet 325-5 MG] 1 each PO Q4H #40 tab 01/23/20 [Rx] Dibucaine [Nupercainal] 60 gm RC TID #60 oint...g. 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: Endometrial Ablation, 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: labial cyst Musculoskeletal History: Reports: Back Pain, Chronic, Fracture Other Musculoskeletal History: mid level DJD Psychiatric History: Reports: Anxiety, Panic Attack Endocrine/Metabolic History: Reports: Obesity/BMI 30+ Hematologic History: Reports: Anemia, Blood Transfusion(s), Iron Deficiency - Infectious Disease History Infectious Disease History: Reports: Chicken Pox - Past Surgical History Head Surgeries/Procedures: Reports: None HEENT Surgical History: Reports: None Cardiovascular Surgical History: Reports: None Respiratory Surgical History: Reports: None GI Surgical History: Reports: Cholecystectomy, Colonoscopy, EGD, Hernia, Abdominal Female Surgical History: Reports: Tubal Ligation Endocrine Surgical History: Reports: None Musculoskeletal Surgical History: Reports: Other (See Below) Other Musculoskeletal Surgeries/Procedures:: had radiofrequency facet joint denervation lower lumbar Social & Family History - Family History Family Medical History: Noncontributory - Tobacco Use Smoking Status *Q: Current Every Day Smoker Years of Tobacco use: 30 Packs/Tins Daily: 0.5 - Caffeine Use Caffeine Use: Reports: Coffee - Recreational Drug Use Recreational Drug Use: No - Living Situation & Occupation Living situation: Reports: Single Occupation: Unemployed ED ROS GENERAL - Review of Systems Review Of Systems: See Below Constitutional: Reports: No Symptoms. Denies: Diaphoresis HEENT: Reports: No Symptoms Respiratory: Reports: Shortness of Breath Cardiovascular: Reports: Chest Pain GI/Abdominal: Reports: No Symptoms. Denies: Nausea, Vomiting : Reports: No Symptoms Musculoskeletal: Reports: No Symptoms ED EXAM, GENERAL - Physical Exam Exam: See Below Exam Limited By: No Limitations General Appearance: Alert, WD/WN, No Apparent Distress Neck: Normal Inspection, Supple, Non-Tender, Full Range of Motion Respiratory/Chest: No Respiratory Distress, Lungs Clear, Normal Breath Sounds, No Accessory Muscle Use, Chest Non-Tender Cardiovascular: Regular Rate, Rhythm, No Murmur GI/Abdominal: Soft, Non-Tender Extremities: No Pedal Edema Course - Vital Signs Last Recorded V/S: Last Vital Signs Temp 97.4 F 03/20/20 23:37 Pulse 90 03/20/20 23:37 Resp 18 03/20/20 23:37 BP 142/91 H 03/20/20 23:37 Pulse Ox 96 03/20/20 23:37 - Orders/Labs/Meds Orders: Active Orders 24 hr Category Date Time Status Cardiac Monitoring [RC] .As Directed Care 03/20/20 23:46 Active Labs: Laboratory Tests 03/20/20 03/20/20 Range/Units 23:58 23:58 WBC 6.7 (4.5-11.0) K/uL RBC 4.71 (3.30-5.50) M/uL Hgb 12.7 D (12.0-15.0) g/dL Hct 40.0 (36.0-48.0) % MCV 85 (80-98) fL MCH 27 (27-31) pg MCHC 32 (32-36) % Plt Count 208 (150-400) K/uL Neut % (Auto) 63 (36-66) % Lymph % (Auto) 22 L (24-44) % [place] % (Auto) 8 H (2-6) % Eos % (Auto) 6 H (2-4) % Baso % (Auto) 0 (0-1) % Sodium 142 (140-148) mmol/L Potassium 4.1 (3.6-5.2) mmol/L Chloride 106 (100-108) mmol/L Carbon Dioxide 27 (21-32) mmol/L Anion Gap 8.7 (5.0-14.0) mmol/L BUN 18 D (7-18) mg/dL Creatinine 0.9 (0.6-1.0) mg/dL Est Cr Clr Drug Dosing 73.53 mL/min Estimated GFR (MDRD) > 60 (>60) Glucose 137 H (74-106) mg/dL Calcium 8.5 (8.5-10.1) mg/dL Total Bilirubin 0.3 (0.2-1.0) mg/dL AST 29 (15-37) U/L ALT 100 H (12-78) U/L Alkaline Phosphatase 107 (46-116) U/L Troponin I < 0.017 (0.000-0.056) ng/mL Total Protein 6.8 (6.4-8.2) g/dL Albumin 3.4 (3.4-5.0) g/dL Globulin 3.4 (2.3-3.5) g/dL Albumin/Globulin Ratio 1.0 L (1.2-2.2) Meds: Medications Discontinued Medications Generic Name Dose Route Start Last Admin Trade Name Freq PRN Reason Stop Dose Admin Lorazepam 1 mg 03/20/20 23:47 03/20/20 23:55 Ativan PO 03/20/20 23:48 1 mg ONETIME ONE Administration Departure - Departure Time of Disposition: 00:35 Disposition: Home, Self-Care 01 Condition: Fair Clinical Impression: Panic attack - Discharge Information Referrals: PCP,None [Primary Care Provider] - Forms: ED Department Discharge Additional Instructions: Use Ativan as needed for chest pain shortness of breath anxiety symptoms, please followup with your primary care provider in 3-5 days if not better, please call return to the emergency department with worsening of symptoms. Sepsis Event Note - Evaluation Sepsis Screening Result: No Definite Risk - Focused Exam Vital Signs: Vital Signs Temp Pulse Resp BP Pulse Ox 03/20/20 23:37 97.4 F 90 18 142/91 H 96 Date Exam was Performed: 03/21/20 Time Exam was Performed: 00:34 - My Orders Last 24 Hours: My Active Orders 03/20/20 23:46 Cardiac Monitoring [RC] .As Directed - Assessment/Plan Last 24 Hours: My Active Orders 03/20/20 23:46 Cardiac Monitoring [RC] .As Directed Plan: Assessment Acuity = acute Site and laterality = panic attack Etiology = generalized anxiety disorder Manifestations = none Location of injury = Home Lab values = CBC unremarkable ALT elevated at 100 consistent elevated liver enzymes, troponin negative EKG demonstrates sinus rhythm no ST elevations or depressions Plan Good relief with 1 mg Ativan provided, prescription written for Ativan 1 mg p.o. 3 times daily PRN total #10 follow-up primary care 3 to 5 days if not better This note was dictated using [employer] recognition software please call with any questions on syntax or grammar.
== END 2020-03-21 02:58 | disposition home or self-care (01) ==
LOC: JP.ED 23:30
DX: F41.0 Panic disorder [episodic paroxysmal anxiety] (principal); I10 Essential (primary) hypertension; J44.9 Chronic obstructive pulmonary disease, unspecified; K21.9 Gastro-esophageal reflux disease without esophagitis; F17.210 Nicotine dependence, cigarettes, uncomplicated; E66.9 Obesity, unspecified; Z68.30 Body mass index [BMI] 30.0-30.9, adult; Z88.5 Allergy status to narcotic agent; Z88.8 Allergy status to other drugs, medicaments and biological substances; Z88.0 Allergy status to penicillin; Z79.899 Other long term (current) drug therapy
CPT/HCPCS: 36415; 80053; 84484; 85025; 99284; A9270

== ENCOUNTER 2020-08-11 10:17 | Emergency (ER) | payer MEDICAID ==
[2020-08-11 10:38] VITALS: BP 153/94; PULSE 95
[2020-08-11] MEDS ORDERED: Ketorolac 60 MG/2 ML SDV IM ONE (10:57)
--- NOTE | 2020-08-11 11:52 | EDM.PDOC ---
ED HPI GENERAL MEDICAL PROBLEM - General Chief Complaint: Upper Extremity Injury/Pain Stated Complaint: BACK PAIN Time Seen by Provider: 08/11/20 10:40 Source of Information: Reports: Patient History Limitations: Reports: No Limitations - History of Present Illness INITIAL COMMENTS - FREE TEXT/NARRATIVE: pt arrived with increased pain in the back radiating down the left leg. Onset: Today Duration: Hour(s): Location: Reports: Back, Other ( she has a increase in her back pain. ) Associated Symptoms: Reports: No Other Symptoms Left Back Pain Score (Numeric/FACES): 10 - Related Data Allergies Allergy/AdvReac Type Severity Reaction Status Date / Time hydromorphone [From Dilaudid] Allergy Vomiting Verified 08/11/20 10:32 alprazolam [From Xanax] AdvReac Anxiety Verified 08/11/20 10:32 Penicillins AdvReac Diarrhea Verified 08/11/20 10:32 Home Meds: Home Meds Loratadine [Claritin] 10 mg PO DAILY PRN 07/21/17 [History] busPIRone HCl [busPIRone] 30 mg PO BID 07/28/18 [History] Tiotropium Br/Olodaterol HCl [Stiolto Respimat Inhal [place]] 2 puff INH DAILY 12/27/18 [History] Citalopram Hydrobromide [Celexa] 40 mg PO DAILY 01/16/19 [History] Pantoprazole [ProTONIX] 40 mg PO DAILY@0730 #30 tab.cr 09/27/19 [Rx] Gabapentin [Neurontin] 1,200 mg PO TID 01/04/20 [History] Metoprolol Succinate [Toprol Xl] 50 mg PO DAILY 01/04/20 [History] Benzonatate [Tessalon [place]le] 100 - 200 mg PO QID PRN #40 capsule 01/17/20 [Rx] Albuterol Sulfate [Albuterol Sulfate Hfa] 2 puff INH Q4H PRN 01/19/20 [History] Ibuprofen [Motrin] 600 mg PO Q6H PRN 01/19/20 [History] Dibucaine [Nupercainal] 60 gm RC TID #60 oint...g. 01/23/20 [Rx] Docusate Sodium [Colace] 100 mg PO BID #60 cap 01/23/20 [Rx] Indacaterol/Glycopyrrolate [Utibron Neohaler 27.5-15.6 MCG] 0 each IH BIDRT kit 01/23/20 [Rx] Hydrocodone/Acetaminophen [Hydrocodon-Acetaminophen 5-325] 1 tab PO QID 08/11/20 [History] metFORMIN [Glucophage] 1,000 mg PO BID 08/11/20 [History] Past Medical History HEENT History: Reports: Impaired Vision Cardiovascular History: Reports: Arrhythmia, Hypertension, Other (See Below) Other Cardiovascular History: first degree AV block Respiratory History: Reports: Asthma, Bronchitis, Recurrent, COPD, Pneumonia, Recurrent, Other (See Below) Other Respiratory History: fungal pneumonia Gastrointestinal History: Reports: Colon Polyp, Gastritis, GERD, PUD Genitourinary History: Reports: None 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, 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: labial cyst Musculoskeletal History: Reports: Back Pain, Chronic, Fracture Other Musculoskeletal History: mid level DJD Psychiatric History: Reports: Anxiety, Panic Attack Endocrine/Metabolic History: Reports: Diabetes, Type II, Obesity/BMI 30+ Hematologic History: Reports: Anemia, Blood Transfusion(s), Iron Deficiency - Infectious Disease History Infectious Disease History: Reports: Chicken Pox - Past Surgical History Head Surgeries/Procedures: Reports: None HEENT Surgical History: Reports: None Cardiovascular Surgical History: Reports: None Respiratory Surgical History: Reports: None GI Surgical History: Reports: Cholecystectomy, Colonoscopy, EGD, Hernia, Abdominal Female Surgical History: Reports: Tubal Ligation Endocrine Surgical History: Reports: None Musculoskeletal Surgical History: Reports: Other (See Below) Other Musculoskeletal Surgeries/Procedures:: had radiofrequency facet joint denervation lower lumbar Dermatological Surgical History: Reports: None Social & Family History - Family History Family Medical History: Noncontributory - Tobacco Use Tobacco Use Status *Q: Current Every Day Tobacco User Years of Tobacco use: 20 Packs/Tins Daily: 0.5 Used Tobacco, but Quit: No Second Hand Smoke Exposure: Yes - Caffeine Use Caffeine Use: Reports: Coffee, Soda - Recreational Drug Use Recreational Drug Use: No - Living Situation & Occupation Living situation: Reports: Single Occupation: Unemployed Review of Systems - Review of Systems Review Of Systems: See Below Constitutional: Reports: No Symptoms Eyes: Reports: No Symptoms Ears: Reports: No Symptoms Nose: Reports: No Symptoms Mouth/Throat: Reports: No Symptoms Respiratory: Reports: No Symptoms Cardiovascular: Reports: No Symptoms GI/Abdominal: Reports: No Symptoms Genitourinary: Reports: No Symptoms Musculoskeletal: Reports: Leg Pain, Other (pt has pain going down the left leg. She was to have a stimulator placed and that was refused by insurance. sHe will be scheduled for surgery if possible. [facility] ) Skin: Reports: No Symptoms Neurological: Reports: No Symptoms ED EXAM, GENERAL - Physical Exam Exam: See Below Free Text/Narrative:: pt arrived with increased low back pain and pain going down the left leg. She has not been able to rest. Exam Limited By: No Limitations General Appearance: Alert, Anxious, Moderate Distress Ears: Normal TMs Nose: Normal Inspection Throat/Mouth: Normal Inspection Head: Atraumatic Back Exam: Other ( tender on the left side. She has a positive straight leg raising sign) Extremities: Normal Inspection Course - Vital Signs Last Recorded V/S: Last Vital Signs Temp 37.1 C 08/11/20 10:38 Pulse 95 08/11/20 10:38 Resp 16 08/11/20 10:38 BP 153/94 H 08/11/20 10:38 Pulse Ox 96 08/11/20 10:38 - Orders/Labs/Meds Meds: Medications Discontinued Medications Generic Name Dose Route Start Last Admin Trade Name Jayna PRN Reason Stop Dose Admin Ketorolac Tromethamine 60 mg 08/11/20 10:57 08/11/20 11:05 Toradol IM 08/11/20 10:58 60 mg ONETIME ONE Administration - Re-Assessments/Exams Free Text/Narrative Re-Assessment/Exam: 08/11/20 13:01 pt was given torodol 60 mg im and her paind did go down to a 4. Departure - Departure Time of Disposition: 11:52 Disposition: Home, Self-Care 01 Condition: Fair Clinical Impression: Lumbar disc disease - Discharge Information Instructions: Neuropathic Pain Referrals: PCP,None [Primary Care Provider] - Forms: ED Department Discharge, ED Return to Work/School Form Care Plan Goals: continue same meds, for 5 days add a burst of torodol call pain clinic in [place] and indicate the increase in pain. torodol 10mg tid for the next 5 days,. Sepsis Event Note (ED) - Evaluation Sepsis Screening Result: No Definite Risk - Focused Exam Vital Signs: Vital Signs Temp Pulse Resp BP Pulse Ox 08/11/20 10:38 37.1 C 95 16 153/94 H 96 08/11/20 10:37 37.1 C 95 16 153/94 H 96
== END 2020-08-11 12:00 | disposition home or self-care (01) ==
LOC: JP.ED 10:17
DX: M51.86 Other intervertebral disc disorders, lumbar region (principal); I10 Essential (primary) hypertension; F17.210 Nicotine dependence, cigarettes, uncomplicated; J44.9 Chronic obstructive pulmonary disease, unspecified; K21.9 Gastro-esophageal reflux disease without esophagitis; E11.9 Type 2 diabetes mellitus without complications; E66.9 Obesity, unspecified; F41.9 Anxiety disorder, unspecified; Z88.0 Allergy status to penicillin; Z79.84 Long term (current) use of oral hypoglycemic drugs; Z88.8 Allergy status to other drugs, medicaments and biological substances; Z88.5 Allergy status to narcotic agent; Z79.899 Other long term (current) drug therapy; Z90.49 Acquired absence of other specified parts of digestive tract; Z98.51 Tubal ligation status; Z68.31 Body mass index [BMI] 31.0-31.9, adult
CPT/HCPCS: 96372; 99283; J1885

== ENCOUNTER 2020-12-07 22:57 | Emergency (ER) | payer MEDICAID ==
[2020-12-07 23:14] VITALS: BP 148/100; PULSE 115
[2020-12-07] MEDS ORDERED: Ketorolac 30 MG/ML SDV IM ONE (23:31)
--- NOTE | 2020-12-07 23:35 | EDM.PDOC ---
ED HPI GENERAL MEDICAL PROBLEM - General Chief Complaint: Diabetic Complaint Stated Complaint: MEDICAL VIA [place] Time Seen by Provider: 12/07/20 23:26 Source of Information: Reports: Patient, RN Notes Reviewed History Limitations: Reports: No Limitations - History of Present Illness INITIAL COMMENTS - FREE TEXT/NARRATIVE: 49-year-old female presents emergency department with a complaint of body aches and elevated blood sugars, she states she had steroid injections today has had this procedure multiple times but later on this evening had increasing pain body aches all of her joints and has elevated blood sugars. Home measurement was 380. Denies any fever or sick contacts no shortness of breath or chest pain Generalized Pain Score (Numeric/FACES): 6 - Related Data Allergies Allergy/AdvReac Type Severity Reaction Status Date / Time hydromorphone [From Dilaudid] Allergy Vomiting Verified 12/07/20 23:00 alprazolam [From Xanax] AdvReac Anxiety Verified 12/07/20 23:00 Penicillins AdvReac Diarrhea Verified 12/07/20 23:00 Home Meds: Home Meds Loratadine [Claritin] 10 mg PO DAILY PRN 07/21/17 [History] busPIRone HCl [busPIRone] 30 mg PO BID 07/28/18 [History] Tiotropium Br/Olodaterol HCl [Stiolto Respimat Inhal [place]] 2 puff INH DAILY 12/27/18 [History] Citalopram Hydrobromide [Celexa] 40 mg PO DAILY 01/16/19 [History] Gabapentin [Neurontin] 1,200 mg PO TID 01/04/20 [History] Metoprolol Succinate [Toprol Xl] 50 mg PO DAILY 01/04/20 [History] Albuterol Sulfate [Albuterol Sulfate Hfa] 2 puff INH Q4H PRN 01/19/20 [History] Ibuprofen [Motrin] 600 mg PO Q6H PRN 01/19/20 [History] Dibucaine [Nupercainal] 60 gm RC TID #60 oint...g. 01/23/20 [Rx] Indacaterol/Glycopyrrolate [Utibron Neohaler 27.5-15.6 MCG] 0 each IH BIDRT kit 01/23/20 [Rx] metFORMIN [Glucophage] 1,000 mg PO BID 08/11/20 [History] Omeprazole 1 cap PO DAILY 12/07/20 [History] lisinopriL [Lisinopril] 1 tab PO DAILY 12/07/20 [History] oxyCODONE 1 tab PO QID PRN 12/07/20 [History] oxyCODONE HCl [Roxicodone] 1 tab PO QID PRN 12/07/20 [History] Past Medical History HEENT History: Reports: Impaired Vision Cardiovascular History: Reports: Arrhythmia, Hypertension, Other (See Below) Other Cardiovascular History: first degree AV block Respiratory History: Reports: Asthma, Bronchitis, Recurrent, COPD, Pneumonia, Recurrent, Other (See Below) Other Respiratory History: fungal pneumonia Gastrointestinal History: Reports: Colon Polyp, Gastritis, GERD, PUD 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: Endometrial Ablation, 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 TESTING History: labial cyst Musculoskeletal History: Reports: Back Pain, Chronic, Fracture Other Musculoskeletal History: mid level DJD Psychiatric History: Reports: Anxiety, Panic Attack Endocrine/Metabolic History: Reports: Diabetes, Type II, Obesity/BMI 30+ Hematologic History: Reports: Anemia, Blood Transfusion(s), Iron Deficiency - Infectious Disease History Infectious Disease History: Reports: Chicken Pox - Past Surgical History Head Surgeries/Procedures: Reports: None HEENT Surgical History: Reports: None Cardiovascular Surgical History: Reports: None Respiratory Surgical History: Reports: None Other Respiratory Surgeries/Procedures: had influenza A in August of 2018 GI Surgical History: Reports: Cholecystectomy, Colonoscopy, EGD, Hernia, Abdominal Female Surgical History: Reports: Tubal Ligation Endocrine Surgical History: Reports: None Musculoskeletal Surgical History: Reports: Other (See Below) Other Musculoskeletal Surgeries/Procedures:: had radiofrequency facet joint denervation lower lumbar Dermatological Surgical History: Reports: None Social & Family History - Family History Family Medical History: No Pertinent Family History - Tobacco Use Tobacco Use Status *Q: Current Every Day Tobacco User Years of Tobacco use: 20 Packs/Tins Daily: 0.5 - Caffeine Use Caffeine Use: Reports: Coffee, Soda - Recreational Drug Use Recreational Drug Type: Reports: Marijuana/Hashish Other Recreational Drug Type: pt states she has medical marijuana that she vapes - Living Situation & Occupation Living situation: Reports: Single Occupation: Unemployed ED ROS GENERAL - Review of Systems Review Of Systems: See Below Constitutional: Reports: Other (Body aches). Denies: Fever, Chills HEENT: Reports: No Symptoms Respiratory: Reports: No Symptoms Cardiovascular: Reports: No Symptoms Endocrine: Reports: High Glucose GI/Abdominal: Reports: Nausea : Reports: No Symptoms Musculoskeletal: Reports: Muscle Pain Skin: Reports: No Symptoms Neurological: Reports: No Symptoms ED EXAM GENERAL NO PERIP PULSE - Physical Exam Exam: See Below Exam Limited By: No Limitations General Appearance: Alert, WD/WN, No Apparent Distress Respiratory/Chest: No Respiratory Distress, Lungs Clear, Normal Breath Sounds, No Accessory Muscle Use, Chest Non-Tender Cardiovascular: Regular Rate, Rhythm, No Murmur GI/Abdominal: Soft, Non-Tender Extremities: No Pedal Edema Course - Vital Signs Last Recorded V/S: Last Vital Signs Temp 97.5 F 12/07/20 23:13 Pulse 115 H 12/07/20 23:13 Resp 16 12/07/20 23:13 BP 148/100 H 12/07/20 23:13 Pulse Ox 97 12/07/20 23:13 - Orders/Labs/Meds Labs: Laboratory Tests 12/07/20 12/07/20 12/07/20 Range/Units 23:32 23:34 23:41 WBC 7.1 (4.5-11.0) K/uL RBC 5.13 (3.30-5.50) M/uL Hgb 14.3 (12.0-15.0) g/dL Hct 44.3 (36.0-48.0) % MCV 86 (80-98) fL MCH 28 (27-31) pg MCHC 32 (32-36) % Plt Count 254 (150-400) K/uL Neut % (Auto) 92 H (36-66) % Lymph % (Auto) 6 L (24-44) % [place] % (Auto) 2 (2-6) % Eos % (Auto) 0 L (2-4) % Baso % (Auto) 0 (0-1) % Sodium (140-148) mmol/L Potassium (3.6-5.2) mmol/L Chloride (100-108) mmol/L Carbon Dioxide (21-32) mmol/L Anion Gap (5.0-14.0) mmol/L BUN (7-18) mg/dL Creatinine (0.6-1.0) mg/dL Est Cr Clr Drug Dosing mL/min Estimated GFR (MDRD) (>60) Glucose (74-106) mg/dL Lactic Acid (0.4-2.0) mmol/L Calcium (8.5-10.1) mg/dL Total Bilirubin (0.2-1.0) mg/dL AST (15-37) U/L ALT (12-78) U/L Alkaline Phosphatase (46-116) U/L Troponin I (0.000-0.056) ng/mL Total Protein (6.4-8.2) g/dL Albumin (3.4-5.0) g/dL Globulin (2.3-3.5) g/dL Albumin/Globulin Ratio (1.2-2.2) Lipase (73-393) U/L Urine Color Yellow (YELLOW) Urine Appearance Clear (CLEAR) Urine pH 7.0 (5.0-8.0) Ur Specific Lindsay 1.015 (1.008-1.030) Urine Protein Negative (NEGATIVE) mg/dL Urine Glucose (UA) 500 H (NEGATIVE) mg/dL Urine Ketones Negative (NEGATIVE) mg/dL Urine Occult Blood Trace-intact H (NEGATIVE) Urine Nitrite Negative (NEGATIVE) Urine Bilirubin Negative (NEGATIVE) Urine Urobilinogen 0.2 (0.2-1.0) EU/dL Ur Leukocyte Esterase Negative (NEGATIVE) Urine RBC 0-5 (0-5) Urine WBC Not seen (0-5) Ur Epithelial Cells Few Amorphous Sediment Not seen Urine Bacteria Not seen Urine Mucus Not seen Influenza Type A RNA Negative (NEGATIVE) RSV RNA (INAAT) Negative (NEGATIVE) Influenza Type B RNA Negative (NEGATIVE) SARS-CoV-2 RNA (STEVE) Negative (NEGATIVE) 12/07/20 12/07/20 Range/Units 23:41 23:41 WBC (4.5-11.0) K/uL RBC (3.30-5.50) M/uL Hgb (12.0-15.0) g/dL Hct (36.0-48.0) % MCV (80-98) fL MCH (27-31) pg MCHC (32-36) % Plt Count (150-400) K/uL Neut % (Auto) (36-66) % Lymph % (Auto) (24-44) % [place] % (Auto) (2-6) % Eos % (Auto) (2-4) % Baso % (Auto) (0-1) % Sodium 141 (140-148) mmol/L Potassium 4.6 (3.6-5.2) mmol/L Chloride 105 (100-108) mmol/L Carbon Dioxide 24 (21-32) mmol/L Anion Gap 12.4 (5.0-14.0) mmol/L BUN 12 (7-18) mg/dL Creatinine 0.9 (0.6-1.0) mg/dL Est Cr Clr Drug Dosing 73.53 mL/min Estimated GFR (MDRD) > 60 (>60) Glucose 195 H (74-106) mg/dL Lactic Acid 3.6 H (0.4-2.0) mmol/L Calcium 9.1 (8.5-10.1) mg/dL Total Bilirubin 0.2 (0.2-1.0) mg/dL AST 17 (15-37) U/L ALT 91 H (12-78) U/L Alkaline Phosphatase 118 H (46-116) U/L Troponin I < 0.017 (0.000-0.056) ng/mL Total Protein 7.3 (6.4-8.2) g/dL Albumin 3.6 (3.4-5.0) g/dL Globulin 3.7 H (2.3-3.5) g/dL Albumin/Globulin Ratio 1.0 L (1.2-2.2) Lipase 72 L (73-393) U/L Urine Color (YELLOW) Urine Appearance (CLEAR) Urine pH (5.0-8.0) Ur Specific Lindsay (1.008-1.030) Urine Protein (NEGATIVE) mg/dL Urine Glucose (UA) (NEGATIVE) mg/dL Urine Ketones (NEGATIVE) mg/dL Urine Occult Blood (NEGATIVE) Urine Nitrite (NEGATIVE) Urine Bilirubin (NEGATIVE) Urine Urobilinogen (0.2-1.0) EU/dL Ur Leukocyte Esterase (NEGATIVE) Urine RBC (0-5) Urine WBC (0-5) Ur Epithelial Cells Amorphous Sediment Urine Bacteria Urine Mucus Influenza Type A RNA (NEGATIVE) RSV RNA (INAAT) (NEGATIVE) Influenza Type B RNA (NEGATIVE) SARS-CoV-2 RNA (STEVE) (NEGATIVE) Meds: Medications Discontinued Medications Generic Name Dose Route Start Last Admin Trade Name Freq PRN Reason Stop Dose Admin Ketorolac Tromethamine 30 mg 12/07/20 23:31 12/07/20 23:44 Toradol IM 12/07/20 23:32 30 mg ONETIME ONE Administration Departure - Departure Time of Disposition: 00:44 Disposition: Home, Self-Care 01 Condition: Fair Clinical Impression: Hyperglycemia, Body aches - Discharge Information Instructions: Hyperglycemia Referrals: PCP,None [Primary Care Provider] - Forms: ED Department Discharge Additional Instructions: Continue to use Tylenol or Motrin as needed as for an anti-inflammatory, continue taking your regular medications, please followup with your primary care provider in 3-5 days if not better, please call return to the emergency department with worsening of symptoms. Sepsis Event Note (ED) - Evaluation Sepsis Screening Result: No Definite Risk - Focused Exam Vital Signs: Vital Signs Temp Pulse Resp BP Pulse Ox 12/07/20 23:13 97.5 F 115 H 16 148/100 H 97 - Assessment/Plan Plan: Assessment Acuity = acute Site and laterality = elevated blood sugars and body aches Etiology = unknown Manifestations = none Location of injury = Home Lab values = WBC unremarkable, glucose elevated 195 consistent hyperglycemia lactic acid elevated 3.6 consistent with lactic acidosis, ALT elevated 91 consistent with liver enzyme elevation troponin was negative Covid was negative influenza negative urinalysis also unremarkable Plan I did review lab work with her she felt she got some relief from the Toradol provided was able to sleep well in the emergency department plan is discharged home follow-up primary care 3 to 5 days if not better This note was dictated using jiffstore voice recognition software please call with any questions on syntax or grammar.
[2020-12-08 00:33] LABS: CORONAVIRUS COVID-19 NAA NEGATIVE (NEGATIVE)
== END 2020-12-08 00:56 | disposition home or self-care (01) ==
LOC: JP.ED 22:57
DX: E11.65 Type 2 diabetes mellitus with hyperglycemia (principal); I10 Essential (primary) hypertension; J44.9 Chronic obstructive pulmonary disease, unspecified; K21.9 Gastro-esophageal reflux disease without esophagitis; Z79.84 Long term (current) use of oral hypoglycemic drugs; Z79.899 Other long term (current) drug therapy; Z88.5 Allergy status to narcotic agent; Z88.8 Allergy status to other drugs, medicaments and biological substances; Z88.0 Allergy status to penicillin; Z72.0 Tobacco use; Z20.822 Contact with and (suspected) exposure to COVID-19
CPT/HCPCS: 0241U; 36415; 80053; 81001; 83605; 83690; 84484; 85025; 96372; 99285; J1885; 99283

== ENCOUNTER 2021-04-10 13:04 | Emergency (ER) | payer MEDICAID, SELFPAY ==
[2021-04-10 13:06] VITALS: BP 129/69; PULSE 78
[2021-04-10] MEDS ORDERED: Ketorolac 60 MG/2 ML SDV IM ONE (13:40)
--- NOTE | 2021-04-10 13:46 | EDM.PDOC ---
ED HPI GENERAL MEDICAL PROBLEM - General Chief Complaint: Headache Stated Complaint: ILLNESS Time Seen by Provider: 04/10/21 13:30 Source of Information: Reports: Patient, Old Records History Limitations: Reports: No Limitations - History of Present Illness INITIAL COMMENTS - FREE TEXT/NARRATIVE: 50 yo NA female presents with a complaint of an intermittent CAMPO for a month that is getting worse. She has photophobia generally as her only associated sx. Ibuprofen does not help. Today she saw spots with her R eye so went home from her daughter's home and called 911. No numbness or weakness or nausea or fever. Denies a hx of migraine. No recent head trauma. Has not discussed these CAMPO's with her primary care provider. Onset: Today, Gradual Onset Date: 04/10/21 Duration: Hour(s):, Constant Location: Reports: Head Quality: Reports: Ache Severity: Moderate Improves with: Reports: Other (sleeping) Worsens with: Reports: Other (unsure) Context: Reports: Other (See HPI) Associated Symptoms: Reports: Headaches, Other (photophobia, sees spots with R eye today. ). Denies: Fever/Chills, Nausea/Vomiting Treatments HORSE DOCTOR: Reports: Other (see below) (none today) Headache Pain Score (Numeric/FACES): 4 - Related Data Allergies Allergy/AdvReac Type Severity Reaction Status Date / Time hydromorphone [From Dilaudid] Allergy Vomiting Verified 04/10/21 13:10 alprazolam [From Xanax] AdvReac Anxiety Verified 04/10/21 13:10 Penicillins AdvReac Diarrhea Verified 04/10/21 13:10 Home Meds: Home Meds Loratadine [Claritin] 10 mg PO DAILY PRN 07/21/17 [History] busPIRone HCl [busPIRone] 30 mg PO BID 07/28/18 [History] Citalopram Hydrobromide [Celexa] 40 mg PO DAILY 01/16/19 [History] Gabapentin [Neurontin] 1,200 mg PO TID 01/04/20 [History] Albuterol Sulfate [Albuterol Sulfate Hfa] 2 puff INH Q4H PRN 01/19/20 [History] Ibuprofen [Motrin] 600 mg PO Q6H PRN 01/19/20 [History] Dibucaine [Nupercainal] 60 gm RC TID #60 oint...g. 01/23/20 [Rx] metFORMIN [Glucophage] 1,000 mg PO BID 08/11/20 [History] Omeprazole 1 cap PO DAILY 12/07/20 [History] lisinopriL [Lisinopril] 1 tab PO DAILY 12/07/20 [History] oxyCODONE 1 tab PO QID PRN 12/07/20 [History] Fluticasone Propion/Salmeterol [Advair 250-50 Diskus] 2 puff INH DAILY 04/10/21 [History] Past Medical History HEENT History: Reports: Impaired Vision Cardiovascular History: Reports: Arrhythmia, Hypertension, Other (See Below) Other Cardiovascular History: first degree AV block Respiratory History: Reports: Asthma, Bronchitis, Recurrent, COPD, Pneumonia, Recurrent, Other (See Below) Other Respiratory History: fungal pneumonia 2017 Gastrointestinal History: Reports: Colon Polyp, Gastritis, GERD, PUD Genitourinary History: Reports: None 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: Endometrial Ablation, Other WASHER AND CRUSHER TENDER History: labial cyst Musculoskeletal History: Reports: Back Pain, Chronic, Fracture Other Musculoskeletal History: mid level DJD Psychiatric History: Reports: Anxiety, Depression, Panic Attack Endocrine/Metabolic History: Reports: Diabetes, Type II Hematologic History: Reports: Anemia, Blood Transfusion(s), Iron Deficiency - Infectious Disease History Infectious Disease History: Reports: Chicken Pox - Past Surgical History Head Surgeries/Procedures: Reports: None HEENT Surgical History: Reports: None Cardiovascular Surgical History: Reports: None Respiratory Surgical History: Reports: None GI Surgical History: Reports: Cholecystectomy, Colonoscopy, EGD, Hernia, Abdominal Female Surgical History: Reports: Tubal Ligation Endocrine Surgical History: Reports: None Musculoskeletal Surgical History: Reports: Other (See Below) Other Musculoskeletal Surgeries/Procedures:: had radiofrequency facet joint denervation lower lumbar Dermatological Surgical History: Reports: None Social & Family History - Family History Family Medical History: No Pertinent Family History - Tobacco Use Tobacco Use Status *Q: Current Every Day Tobacco User Years of Tobacco use: 20 Packs/Tins Daily: 0.5 - Caffeine Use Caffeine Use: Reports: Coffee, Soda - Recreational Drug Use Recreational Drug Use: Yes Recreational Drug Type: Reports: Marijuana/Hashish, Other (see below) Other Recreational Drug Type: medical marijuana - Living Situation & Occupation Living situation: Reports: Single Occupation: Unemployed ED ROS GENERAL - Review of Systems Review Of Systems: See Below Constitutional: Reports: No Symptoms HEENT: Reports: No Symptoms, Vision Change (spots with R eye). Denies: Eye Pain Respiratory: Reports: No Symptoms Cardiovascular: Reports: No Symptoms GI/Abdominal: Reports: No Symptoms. Denies: Nausea : Reports: No Symptoms Musculoskeletal: Denies: Neck Pain Skin: Reports: No Symptoms Neurological: Reports: Headache Psychiatric: Reports: No Symptoms - Physical Exam Exam: See Below Exam Limited By: No Limitations General Appearance: Alert, WD/WN, No Apparent Distress Eye Exam: Bilateral Eye: EOMI, Normal Inspection, PERRL Ears: Normal External Exam, Normal Canal, Hearing Grossly Normal, Normal TMs Nose: Normal Inspection, No Blood Throat/Mouth: Normal Inspection, Normal Lips, Normal Oropharynx, Normal Voice, No Airway Compromise Head Exam: Atraumatic, Normocephalic Neck: Normal Inspection Respiratory/Chest: No Respiratory Distress, Lungs Clear, Normal Breath Sounds, No Accessory Muscle Use Cardiovascular: Regular Rate, Rhythm, No Edema GI/Abdominal: Normal Bowel Sounds, Soft, Non-Tender, No Distention Neuro Exam (Abbreviated): Alert, Oriented, CN II-XII Intact, Normal Cognition, No Motor/Sensory Deficits Back Exam: Normal Inspection. No: CVA Tenderness (R), CVA Tenderness (L) Extremities: Normal Inspection, Normal Range of Motion, Non-Tender, No Pedal Edema. No: Pedal Edema Psychiatric: Normal Affect, Normal Mood Skin Exam: Warm, Dry, Intact, Normal Color, No Rash Course - Vital Signs Last Recorded V/S: Last Vital Signs Temp 36.6 C 04/10/21 13:06 Pulse 78 04/10/21 13:06 Resp 16 04/10/21 13:06 BP 129/69 04/10/21 13:06 Pulse Ox 97 04/10/21 13:06 - Orders/Labs/Meds Meds: Medications Discontinued Medications Generic Name Dose Route Start Last Admin Trade Name Freq PRN Reason Stop Dose Admin Ketorolac Tromethamine 60 mg 04/10/21 13:40 04/10/21 13:58 Ketorolac 60 Mg/2 Ml Sdv IM 04/10/21 13:41 60 mg ONETIME ONE Administration - Radiology Interpretation Free Text/Narrative:: Head CT scan-ethmoid sinus fluid CT Results Date: 04/10/21 CT Results Time: 14:42 - Re-Assessments/Exams Free Text/Narrative Re-Assessment/Exam: 04/10/21 14:44 Has some relief with Toradol Departure - Departure Time of Disposition: 14:50 Disposition: Home, Self-Care 01 Condition: Fair Clinical Impression: Sinusitis Ethmoid sinusitis Qualifiers: Chronicity: unspecified Qualified Code(s): J32.2 - Chronic ethmoidal sinusitis Headache Qualifiers: Headache type: unspecified Headache chronicity pattern: unspecified pattern Intractability: not intractable Qualified Code(s): R51.9 - Headache, unspecified - Discharge Information *PRESCRIPTION DRUG MONITORING PROGRAM REVIEWED*: Not Applicable *COPY OF PRESCRIPTION DRUG MONITORING REPORT IN PATIENT ALMAZ: Not Applicable Instructions: Sinusitis, Adult, [id number] Referrals: PCP,None [Primary Care Provider] - Forms: ED Department Discharge Additional Instructions: Take Amoxicillin every 12 hrs for sinus infection. Take Aleve 2 every 8 hrs and, if needed, acetaminophen 1000 mg every 6 hrs for added relief. Recheck in the clinic by Friday, call for an appt. Sepsis Event Note (ED) - Evaluation Sepsis Screening Result: No Definite Risk - Focused Exam Vital Signs: Vital Signs Temp Pulse Resp BP Pulse Ox 04/10/21 13:06 36.6 C 78 16 129/69 97
--- NOTE | 2021-04-10 14:38 | CT ---
Head wo Cont CLINICAL HISTORY: Headache COMPARISON: 2019 TECHNIQUE: Transverse scans were obtained from the base of the skull through the vertex without IV contrast on a multislice, multidetector CT scanner. Auto dosage reduction and iterative reconstruction techniques employed. FINDINGS: No focal abnormal parenchymal densities identified. There is no mass effect, hemorrhage, or extraaxial collection. The basal cisterns and sulci over the convexities are normal. The ventricles are normal for age. There is CSF density in the sella turcica. There is mucosal thickening in the ethmoid sinuses. No air-fluid levels are seen IMPRESSION: No acute intracranial process Empty sella Ethmoid sinusitis
== END 2021-04-10 15:02 | disposition home or self-care (01) ==
LOC: JP.ED 13:04
DX: J32.2 Chronic ethmoidal sinusitis (principal); I10 Essential (primary) hypertension; J44.9 Chronic obstructive pulmonary disease, unspecified; K21.9 Gastro-esophageal reflux disease without esophagitis; E11.9 Type 2 diabetes mellitus without complications; Z79.84 Long term (current) use of oral hypoglycemic drugs; Z79.899 Other long term (current) drug therapy; Z88.5 Allergy status to narcotic agent; Z88.8 Allergy status to other drugs, medicaments and biological substances; Z88.0 Allergy status to penicillin; Z72.0 Tobacco use
CPT/HCPCS: 70450; 96372; 99284; J1885

== ENCOUNTER 2021-06-25 19:03 | Emergency (ER) | payer MEDICAID ==
[2021-06-25 19:22] VITALS: BP 139/86; PULSE 102
[2021-06-25] MEDS ORDERED: Ketorolac 30 MG/ML SDV IM ONE (19:37)
--- NOTE | 2021-06-25 19:42 | EDM.PDOC ---
ED HPI GENERAL MEDICAL PROBLEM - General Chief Complaint: Lower Extremity Injury/Pain Stated Complaint: RT KNEE PAIN Time Seen by Provider: 06/25/21 19:14 - History of Present Illness INITIAL COMMENTS - FREE TEXT/NARRATIVE: 50 yo present to ER today with pain in right knee. She thinks the pain initiated when she fell on the weekend of April 22. She has had pain sinc terrie she does have appt in 2 days with her PCP. She has taken ibuprofen today along with her pain management regimen for her back pain. she has been placing heat on the knee with littler relief. Right Knee Pain Score (Numeric/FACES): 8 - Related Data Allergies Allergy/AdvReac Type Severity Reaction Status Date / Time hydromorphone [From Dilaudid] Allergy Vomiting Verified 04/10/21 13:10 alprazolam [From Xanax] AdvReac Anxiety Verified 04/10/21 13:10 Penicillins AdvReac Diarrhea Verified 04/10/21 13:10 Home Meds: Home Meds Loratadine [Claritin] 10 mg PO DAILY PRN 07/21/17 [History] busPIRone HCl [busPIRone] 30 mg PO BID 07/28/18 [History] Citalopram Hydrobromide [Celexa] 40 mg PO DAILY 01/16/19 [History] Gabapentin [Neurontin] 1,200 mg PO TID 01/04/20 [History] Albuterol Sulfate [Albuterol Sulfate Hfa] 2 puff INH Q4H PRN 01/19/20 [History] Ibuprofen [Motrin] 600 mg PO Q6H PRN 01/19/20 [History] metFORMIN [Glucophage] 1,000 mg PO BID 08/11/20 [History] Omeprazole 1 cap PO DAILY 12/07/20 [History] lisinopriL [Lisinopril] 1 tab PO DAILY 12/07/20 [History] oxyCODONE 1 tab PO QID PRN 12/07/20 [History] Fluticasone Propion/Salmeterol [Advair 250-50 Diskus] 2 puff INH DAILY 04/10/21 [History] Meclizine [Antivert] 25 mg PO Q4H 06/25/21 [History] Tiotropium [place] [Spiriva Respimat] 1 puff INH DAILY 06/25/21 [History] Past Medical History HEENT History: Reports: Impaired Vision Cardiovascular History: Reports: Arrhythmia, Hypertension, Other (See Below) Other Cardiovascular History: first degree AV block Respiratory History: Reports: Asthma, Bronchitis, Recurrent, COPD, Pneumonia, Recurrent, Other (See Below) Other Respiratory History: fungal pneumonia 2017 Gastrointestinal History: Reports: Colon Polyp, Gastritis, GERD, PUD Genitourinary History: Reports: None 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: Endometrial Ablation, 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 History: labial cyst Musculoskeletal History: Reports: Back Pain, Chronic, Fracture Other Musculoskeletal History: mid level DJD Psychiatric History: Reports: Anxiety, Depression, Panic Attack Endocrine/Metabolic History: Reports: Diabetes, Type II Hematologic History: Reports: Anemia, Blood Transfusion(s), Iron Deficiency - Infectious Disease History Infectious Disease History: Reports: Chicken Pox - Past Surgical History Head Surgeries/Procedures: Reports: None HEENT Surgical History: Reports: None Cardiovascular Surgical History: Reports: None Respiratory Surgical History: Reports: None Other Respiratory Surgeries/Procedures: had influenza A in August of 2018 GI Surgical History: Reports: Cholecystectomy, Colonoscopy, EGD, Hernia, Abdominal Female Surgical History: Reports: Tubal Ligation Endocrine Surgical History: Reports: None Musculoskeletal Surgical History: Reports: Other (See Below) Other Musculoskeletal Surgeries/Procedures:: had radiofrequency facet joint denervation lower lumbar Dermatological Surgical History: Reports: None Social & Family History - Family History Family Medical History: No Pertinent Family History - Tobacco Use Tobacco Use Status *Q: Current Every Day Tobacco User Years of Tobacco use: 25 Packs/Tins Daily: 0.5 - Caffeine Use Caffeine Use: Reports: None - Recreational Drug Use Recreational Drug Use: Yes Recreational Drug Type: Reports: Other (see below) Other Recreational Drug Type: medical marijuana vape pen - Living Situation & Occupation Living situation: Reports: Single Occupation: Unemployed Review of Systems - Review of Systems Review Of Systems: See Below Constitutional: Denies: Fever Respiratory: Denies: Shortness of Breath Cardiovascular: Denies: Chest Pain ED EXAM, GENERAL - Physical Exam Exam: See Below Exam Limited By: No Limitations General Appearance: Alert, WD/WN, No Apparent Distress Respiratory/Chest: No Respiratory Distress Extremities: Other (right knee exam: mediual joint line tenderness, ROM limited by pain, lockmen and drawe are negative) Course - Vital Signs Last Recorded V/S: Last Vital Signs Temp 36.6 C 06/25/21 19:21 Pulse 102 H 06/25/21 19:21 Resp 16 06/25/21 19:21 BP 139/86 06/25/21 19:21 Pulse Ox 97 06/25/21 19:21 - Orders/Labs/Meds Meds: Medications Discontinued Medications Generic Name Dose Route Start Last Admin Trade Name Jayna PRN Reason Stop Dose Admin Ketorolac Tromethamine 30 mg 06/25/21 19:37 06/25/21 19:49 Ketorolac 30 Mg/Ml Sdv IM 06/25/21 19:38 30 mg ONETIME ONE Administration - Re-Assessments/Exams Free Text/Narrative Re-Assessment/Exam: 06/25/21 19:38 left knee was wrapped with lanre compression bandage, encouraged weight bearing as tolerated she has appt on Fri with her PCP elliot in [place]. Departure - Departure Time of Disposition: 19:40 Disposition: Home, Self-Care 01 Condition: Good Clinical Impression: Knee pain Qualifiers: Chronicity: acute Laterality: right Qualified Code(s): M25.561 - Pain in right knee - Discharge Information *PRESCRIPTION DRUG MONITORING PROGRAM REVIEWED*: Not Applicable *COPY OF PRESCRIPTION DRUG MONITORING REPORT IN PATIENT ALMAZ: Not Applicable Instructions: Chronic Knee Pain, Adult Referrals: PCP,None [Primary Care Provider] - Forms: ED Department Discharge Additional Instructions: remove Lanre daily and move knee weight bearing as tolerated ice at least 3 times per day ibuprofen starting tomorrow 400-600 mg every 6 hours Sepsis Event Note (ED) - Evaluation Sepsis Screening Result: No Definite Risk - Focused Exam Vital Signs: Vital Signs Temp Pulse Resp BP Pulse Ox 06/25/21 19:21 36.6 C 102 H 16 139/86 97
== END 2021-06-25 20:00 | disposition home or self-care (01) ==
LOC: JP.ED 19:03
DX: M25.561 Pain in right knee (principal); I10 Essential (primary) hypertension; J44.9 Chronic obstructive pulmonary disease, unspecified; K21.9 Gastro-esophageal reflux disease without esophagitis; E11.9 Type 2 diabetes mellitus without complications; Z72.0 Tobacco use; Z88.5 Allergy status to narcotic agent; Z88.0 Allergy status to penicillin; Z88.8 Allergy status to other drugs, medicaments and biological substances; Z79.84 Long term (current) use of oral hypoglycemic drugs; Z79.899 Other long term (current) drug therapy
CPT/HCPCS: 96372; 99283; J1885

== ENCOUNTER 2021-09-11 01:40 | Emergency (ER) | payer MEDICAID ==
[2021-09-11 01:55] VITALS: BP 147/96; PULSE 85
[2021-09-11] MEDS ORDERED: LORazepam 1 MG Tab PO ONE (02:20)
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
== END 2021-09-11 03:12 | disposition home or self-care (01) ==
LOC: JP.ED 01:40
DX: F41.0 Panic disorder [episodic paroxysmal anxiety] (principal); I10 Essential (primary) hypertension; J44.9 Chronic obstructive pulmonary disease, unspecified; K21.9 Gastro-esophageal reflux disease without esophagitis; E11.9 Type 2 diabetes mellitus without complications; Z88.0 Allergy status to penicillin; Z88.5 Allergy status to narcotic agent; Z88.8 Allergy status to other drugs, medicaments and biological substances; Z79.899 Other long term (current) drug therapy; Z72.0 Tobacco use
CPT/HCPCS: 99283; A9270

== ENCOUNTER 2021-11-27 22:03 | Emergency (ER) | payer MEDICAID ==
[2021-11-27] MEDS ORDERED: Nitroglycerin/D5W 25 MG/250 ML BOTTLE ONE (22:09)
[2021-11-27] MEDS ORDERED: Ketorolac 30 MG/ML SDV IVPUSH ONE (22:38)
[2021-11-27] MEDS ORDERED: Nitroglycerin/D5W 25 MG/250 ML BOTTLE IV SCH (22:45)
[2021-11-27 22:52] VITALS: BP 105/72; PULSE 96
[2021-11-27] MEDS ORDERED: oxyCODONE 5 MG Tab PO ONE ×2 (23:30→23:31)
== END 2021-11-28 00:26 | disposition home or self-care (01) ==
LOC: JP.ED 22:03
DX: R07.89 Other chest pain (principal); I10 Essential (primary) hypertension; J44.9 Chronic obstructive pulmonary disease, unspecified; K21.9 Gastro-esophageal reflux disease without esophagitis; E11.9 Type 2 diabetes mellitus without complications; Z72.0 Tobacco use; Z88.5 Allergy status to narcotic agent; Z88.8 Allergy status to other drugs, medicaments and biological substances; Z88.0 Allergy status to penicillin; Z79.84 Long term (current) use of oral hypoglycemic drugs; Z79.899 Other long term (current) drug therapy
CPT/HCPCS: 36415; 71046; 80048; 84484; 85025; 96365; 96375; 99285; A9270; J1885; J3490

== ENCOUNTER 2022-04-13 12:03 | Emergency (ER) | payer MEDICAID ==
[2022-04-13] MEDS ORDERED: Sodium Chloride 0.9% 10 ML Syringe FLUSH PRN (12:46)
[2022-04-13] MEDS ORDERED: Ketorolac 30 MG/ML SDV IVPUSH ONE (12:48)
[2022-04-13] MEDS ORDERED: Ondansetron 4 MG/2 ML SDV IVPUSH ONE (12:48)
[2022-04-13] MEDS ORDERED: Lactated Ringers 1,000 ML IV SCH (13:00)
[2022-04-13 13:27] LABS: ESTIMATED GFR 61 mL/min (>60); TROPONIN I HIGH SENSITIVITY 8.2 pg/mL (<=60.3)
[2022-04-13 13:41] LABS: CORONAVIRUS COVID-19 NAA NEGATIVE (NEGATIVE)
[2022-04-13] MEDS ORDERED: oxyCODONE 5 MG Tab PO ONE (14:24)
[2022-04-13 14:57] VITALS: BP 123/79; PULSE 98
== END 2022-04-13 16:04 | disposition home or self-care (01) ==
LOC: JP.ED 12:03
DX: K52.9 Noninfective gastroenteritis and colitis, unspecified (principal); E11.9 Type 2 diabetes mellitus without complications; I10 Essential (primary) hypertension; J44.9 Chronic obstructive pulmonary disease, unspecified; K21.9 Gastro-esophageal reflux disease without esophagitis; F17.210 Nicotine dependence, cigarettes, uncomplicated; Z20.822 Contact with and (suspected) exposure to COVID-19; Z88.0 Allergy status to penicillin; Z88.8 Allergy status to other drugs, medicaments and biological substances; Z79.84 Long term (current) use of oral hypoglycemic drugs; Z79.899 Other long term (current) drug therapy
CPT/HCPCS: 0241U; 36415; 80053; 81001; 83605; 83690; 84484; 85025; 96374; 96375; 99284; 99284-25; A9270-GY; J1885; J2405; J7120

== ENCOUNTER 2022-05-15 13:36 | Emergency (ER) | payer MEDICAID ==
[2022-05-15 13:52] VITALS: BP 113/79; PULSE 104
[2022-05-15] MEDS ORDERED: Sodium Chloride 0.9% 10 ML Syringe FLUSH PRN (14:43)
[2022-05-15] MEDS ORDERED: Sodium Chloride 0.9% 1,000 ML IV STA (14:43)
[2022-05-15] MEDS ORDERED: fentaNYL 100 MCG/2 ML SDV IVPUSH ONE (14:44)
[2022-05-15] MEDS ORDERED: Ondansetron 4 MG/2 ML SDV IVPUSH ONE (14:44)
[2022-05-15] MEDS ORDERED: Iopamidol 612 MG/ML 100 ML Bottle IV PRN (14:53)
[2022-05-15] MEDS ORDERED: Sodium Chloride 0.9% 50 ML IV SCH (15:00)
[2022-05-15 15:32] LABS: ESTIMATED GFR 77 mL/min (>60)
[2022-05-15 15:34] LABS: TROPONIN I HIGH SENSITIVITY < 4.0 pg/mL (<=60.3)
== END 2022-05-15 18:12 | disposition home or self-care (01) ==
LOC: JP.ED 13:36
DX: K29.00 Acute gastritis without bleeding (principal); I10 Essential (primary) hypertension; J44.9 Chronic obstructive pulmonary disease, unspecified; K21.9 Gastro-esophageal reflux disease without esophagitis; E11.9 Type 2 diabetes mellitus without complications; F17.210 Nicotine dependence, cigarettes, uncomplicated; Z88.0 Allergy status to penicillin; Z88.5 Allergy status to narcotic agent; Z88.8 Allergy status to other drugs, medicaments and biological substances; Z79.899 Other long term (current) drug therapy; Z20.822 Contact with and (suspected) exposure to COVID-19
CPT/HCPCS: 36415; 74177; 80053; 83605; 83690; 84484; 85025; 87635; 96361; 96374; 96375; 99282; 99284; J2405; J3010; J3490; J7030; Q9967; U0002

== ENCOUNTER 2022-06-27 20:33 | Emergency (ER) | payer MEDICAID | END 2022-06-27 22:20 | disposition left against medical advice (07) | LOC: JP.ED 20:33 | DX: Z53.21 Procedure and treatment not carried out due to patient leaving prior to being seen by health care provider (principal) ==

== ENCOUNTER 2022-10-21 11:31 | Emergency (ER) | payer MEDICAID ==
[2022-10-21 13:29] VITALS: PULSE 107
[2022-10-21 13:39] VITALS: BP 142/93
== END 2022-10-21 14:32 | disposition home or self-care (01) ==
LOC: JP.ED 11:31
DX: F41.9 Anxiety disorder, unspecified (principal); I10 Essential (primary) hypertension; J44.9 Chronic obstructive pulmonary disease, unspecified; K21.9 Gastro-esophageal reflux disease without esophagitis; E11.9 Type 2 diabetes mellitus without complications; Z88.8 Allergy status to other drugs, medicaments and biological substances; Z88.5 Allergy status to narcotic agent; Z88.0 Allergy status to penicillin; Z79.899 Other long term (current) drug therapy
CPT/HCPCS: 99283

== ENCOUNTER 2024-04-18 21:52 | Emergency (ER) | payer MEDICAID ==
[2024-04-18 21:57] VITALS: BP 150/90; PULSE 78
[2024-04-18 22:26] LABS: BASOPHILS ABSOLUTE AUTO 0.07 K/uL (0.00-0.10); BASOPHILS PERCENT AUTO 0.9 % (0.1-1.3); EOSINOPHILS ABSOLUTE AUTO 0.51 K/uL (0.00-0.40); EOSINOPHILS PERCENT AUTO 6.8 % (0.0-5.4); HEMATOCRIT 36.8 % (34.3-46.0); HEMOGLOBIN 12.3 g/dL (11.2-15.5); IMMATURE GRAN PERCENT AUTO 0.3 % (0.0-0.7); LYMPHOCYTES ABSOLUTE AUTO 2.31 K/uL (0.8-3.3); LYMPHOCYTES PERCENT AUTO 30.6 % (11.4-47.7); MEAN CORPUSCULAR HGB CONC 33.4 g/dL (31.6-35.5); MEAN CORPUSCULAR VOLUME 80.9 fL (81.4-99.0); MONOCYTES ABSOLUTE AUTO 0.44 K/uL (0.20-0.90); MONOCYTES PERCENT AUTO 5.8 % (3.3-12.6); NEUTROPHILS PERCENT AUTO 55.6 % (40.0-78.1); PLATELET COUNT,PLT 274 K/uL (130-375); RED BLOOD CELL COUNT 4.55 M/uL (3.77-5.24); WHITE BLOOD CELL COUNT,WBC 7.6 K/uL (3.2-11.0)
[2024-04-18 22:28] LABS: IMMATURE GRAN ABSOLUTE AUTO 0.02 K/uL (0.00-0.23)
[2024-04-18 22:47] LABS: BLOOD UREA NITROGEN,BUN 8 mg/dL (7-18); CALCIUM 9.3 mg/dL (8.5-10.1); CARBON DIOXIDE,CO2 26 mmol/L (21-32); CHLORIDE,CL 103 mmol/L (100-108); CREATININE 0.9 mg/dL (0.6-1.0); ESTIMATED GFR 76 mL/min (>60); GLUCOSE RANDOM 95 mg/dL (74-106); POTASSIUM,K 4.2 mmol/L (3.6-5.2); SODIUM,NA 139 mmol/L (140-148)
[2024-04-18 22:48] LABS: ANION GAP 14.2 mmol/L (5.0-14.0); TROPONIN I HIGH SENSITIVITY < 4.0 pg/mL (<=60.3)
== END 2024-04-18 23:08 | disposition home or self-care (01) ==
LOC: JP.ED 21:52
DX: M94.0 Chondrocostal junction syndrome [Tietze] (principal); I10 Essential (primary) hypertension; J44.9 Chronic obstructive pulmonary disease, unspecified; K21.9 Gastro-esophageal reflux disease without esophagitis; E11.9 Type 2 diabetes mellitus without complications; F17.210 Nicotine dependence, cigarettes, uncomplicated; Z90.49 Acquired absence of other specified parts of digestive tract; Z79.84 Long term (current) use of oral hypoglycemic drugs; Z79.899 Other long term (current) drug therapy; Z88.0 Allergy status to penicillin; Z88.5 Allergy status to narcotic agent; Z88.8 Allergy status to other drugs, medicaments and biological substances
CPT/HCPCS: 36415; 71046; 71046-26; 80048; 84484; 85025; 99283; 99285

== ENCOUNTER 2025-05-03 20:45 | Emergency (ER) | payer MEDICAID ==
[2025-05-03 21:27] VITALS: BP 143/87; PULSE 89
== END 2025-05-03 22:08 | disposition home or self-care (01) ==
LOC: JP.ED 20:45
DX: M62.830 Muscle spasm of back (principal); I10 Essential (primary) hypertension; K21.9 Gastro-esophageal reflux disease without esophagitis; J44.89 Other specified chronic obstructive pulmonary disease; E11.9 Type 2 diabetes mellitus without complications; F17.200 Nicotine dependence, unspecified, uncomplicated; Z88.0 Allergy status to penicillin; Z88.8 Allergy status to other drugs, medicaments and biological substances; Z79.84 Long term (current) use of oral hypoglycemic drugs; Z79.899 Other long term (current) drug therapy; Z90.49 Acquired absence of other specified parts of digestive tract
CPT/HCPCS: 99283